=== PATIENT | female | born 1970 | race Caucasian/White ===

== ENCOUNTER 2020-01-19 15:04 | Emergency (ER) | payer OTHER, SELFPAY ==
[2020-01-19 15:20] VITALS: BP 134/64; PULSE 77; RESP 18; TEMP 36.8; O2SAT 98
--- NOTE | 2020-01-19 16:09 | ED.EAR ---
HPI - Ear Problem General Chief complaint: Ear Stated complaint: ear pain/pressure/drainage Time Seen by Provider: 01/19/20 16:15 Source: patient and RN notes reviewed Mode of arrival: ambulatory Limitations: no limitations History of Present Illness HPI Narrative: 49 year old female who presents to [facility] care with complaints of bilateral ear pain for the past 3-4 days. Patient states that she has had an intermittent fever with temperature highest of 101F yesterday. She states that her right ear is more painful than left and has decrease in hearing from her right ear. Patient states that she has had previous ear infections and chronic sinus problems with history of asthma and COPD. She states that she takes daily Zyrtec, Flonase and Singulair and has been taking Ibuprofen for her pain. Patient denies any sore throat, nasal congestion, acute cough or and acute shortness of breath, patient continues to use tobacco daily. MD Complaint: ear pain and ear discharge Location: right ear Duration: constant Severity: moderate Relieving factors: NDAIDs Discharge from ear: Reports yes - purulent Associated symptoms ear: decreased hearing and rhinorrhea (chronic sinus problems) Treatment prior to arrival: oral analgesic and other (Zyrtec, Flonase and Singulair) Related Data Home Medications Medication Instructions Recorded Confirmed albuterol sulfate 2 puff INHALATION Q4H PRN 01/19/20 01/19/20 cetirizine 10 mg PO DAILY 01/19/20 01/19/20 ergocalciferol (vitamin D2) 1,250 mcg PO WEEKLY 01/19/20 01/19/20 fluticasone propion-salmeterol 1 inh INHALATION BID 01/19/20 01/19/20 [Wixela Inhub] fluticasone propionate 1 spray INTRANASAL DAILY 01/19/20 01/19/20 glipizide 10 mg PO DAILY 01/19/20 01/19/20 hydrochlorothiazide 25 mg PO DAILY 01/19/20 01/19/20 insulin glargine [Basaglar KwikPen 20 unit SUBCUT DAILY 01/19/20 01/19/20 U-100 Insulin] ipratropium-albuterol 3 ml INHALATION QID PRN 01/19/20 01/19/20 lisinopril 10 mg PO DAILY 01/19/20 01/19/20 montelukast 10 mg PO DAILY 01/19/20 01/19/20 warfarin 10 mg PO DAILY 01/19/20 01/19/20 Allergies Allergy/AdvReac Type Severity Reaction Status Date / Time No Known Allergies Allergy Verified 01/19/20 15:16 Review of Systems Review of Systems: Narrative: CONSTITUTIONAL: Denies fever, chills, or sweats. EYES: Denies visual changes, redness, or discharge. ENT: Clear rhinorrhea, no congestion, sore throat, bilateral ear otalgia with drainage. CARDIOVASCULAR: Denies chest pain, palpitations, or edema. RESPIRATORY: Denies acute cough or dyspnea. GASTROINTESTINAL: Denies abdominal pain, nausea, vomiting, or diarrhea. GENITOURINARY: Denies dysuria or hematuria. SKIN: Denies rash or itching. MUSCULOSKELETAL: Denies back pain, joint pain, or myalgia. NEUROLOGIC: Denies headache, numbness, or weakness. PSYCHIATRIC: Denies anxiety or depression. All systems reviewed & are unremarkable except as noted in HPI and below PMFSH Past Medical History Medical History Asthma COPD (chronic obstructive pulmonary disease) Diabetes DVT (deep venous thrombosis) History of sinus problem Hyperlipidemia Hypertension IBS (irritable bowel syndrome) Surgical History Surgical History (Updated 01/19/20 @ 16:11 by Debbi Warren NP) Hx of cholecystectomy Previous section Social History Social History (Updated 01/21/20 @ 13:13 by Debbi Warren NP) Smoking packs per day: 0.5 Smoking cigarettes per day: 10.0 Years smoked: 26 Smoking pack-years: 13.00 Smoking status: Current every day smoker Tobacco type: cigarettes Living arrangements: with family Gender identity (if verbalized by the patient): Female Comments At time of signature, agree with nursing past medical, surgical, social history. There is no relevant family history pertinent to the presenting complaint Exam Narrative: Exam Narrative: GENERAL: Well-appearing, w
== END 2020-01-19 16:30 | disposition home or self-care (01) ==
PROVIDERS: Emergency Provider Registered Nurse; PCP Nurse Practitioner Family
DX: H66.002 Acute suppurative otitis media without spontaneous rupture of ear drum, left ear (principal); F17.210 Nicotine dependence, cigarettes, uncomplicated; J44.9 Chronic obstructive pulmonary disease, unspecified; E11.9 Type 2 diabetes mellitus without complications; Z86.718 Personal history of other venous thrombosis and embolism; E78.5 Hyperlipidemia, unspecified; I10 Essential (primary) hypertension
CPT/HCPCS: 99213; G0463

== ENCOUNTER 2020-12-17 09:24 | Emergency (ER) | payer OTHER, SELFPAY ==
--- NOTE | 2020-12-17 09:26 | ED.FEMALEGU ---
HPI - Female Genitourinary General Chief complaint: Upper Respiratory Infection Stated complaint: cough and painful urination Time Seen by Provider: 12/17/20 09:26 Source: patient and RN notes reviewed History of Present Illness HPI Narrative: Patient is a 50-year-old female who presents the urgent care with complaints of painful urination for the last 4 days with intermittent nausea. Patient also says that she has had urinary frequency. Reports of history of urinary tract infections with the last one being approximately 1 month ago. Patient was on Keflex at that time. Patient has not followed up with her doctor. Denies of any fever or vomiting. Denies of abdominal pain. States that she is taken Tylenol for her symptoms. No other acute complaints. No acute distress noted. Patient aware of the plan of care. Some parts of this dictation were generated by voice recognition software and may contain typographical and/or grammatical inaccuracies. Related Data Home Medications Medication Instructions Recorded Confirmed albuterol sulfate 2 puff INHALATION Q4H PRN 01/19/20 01/19/20 cetirizine 10 mg PO DAILY 01/19/20 01/19/20 ergocalciferol (vitamin D2) 1,250 mcg PO WEEKLY 01/19/20 01/19/20 fluticasone propion-salmeterol 1 inh INHALATION BID 01/19/20 01/19/20 [Roseann Inhub] fluticasone propionate 1 spray INTRANASAL DAILY 01/19/20 01/19/20 glipizide 10 mg PO DAILY 01/19/20 01/19/20 hydrochlorothiazide 25 mg PO DAILY 01/19/20 01/19/20 insulin glargine [Basaglar KwikPen 20 unit SUBCUT DAILY 01/19/20 01/19/20 U-100 Insulin] ipratropium-albuterol 3 ml INHALATION QID PRN 01/19/20 01/19/20 lisinopril 10 mg PO DAILY 01/19/20 01/19/20 montelukast 10 mg PO DAILY 01/19/20 01/19/20 warfarin 10 mg PO DAILY 01/19/20 01/19/20 Allergies Allergy/AdvReac Type Severity Reaction Status Date / Time No Known Allergies Allergy Verified 01/19/20 15:16 Review of Systems Review of Systems: CONSTITUTIONAL: Denies fever, chills, or sweats. EYES: Denies visual changes, redness, or discharge. ENT: Denies rhinorrhea, congestion, sore throat, or otalgia. CARDIOVASCULAR: Denies chest pain, palpitations, or edema. RESPIRATORY: Reports of acute on chronic cough without dyspnea GASTROINTESTINAL: Denies abdominal pain, nausea, vomiting, or diarrhea. GENITOURINARY: Reports of urinary frequency, dysuria SKIN: Denies rash or itching. MUSCULOSKELETAL: Reports of low back pain NEUROLOGIC: Denies headache, numbness, or weakness. All other systems reviewed are negative, except as documented in HPI. [facility] Past Medical History Medical History (Updated 12/17/20 @ 09:53 by ELIOT Valenzuela) Asthma COPD (chronic obstructive pulmonary disease) Diabetes DVT (deep venous thrombosis) History of sinus problem Hyperlipidemia Hypertension IBS (irritable bowel syndrome) Surgical History Surgical History (Updated 01/19/20 @ 16:11 by Debbi Warren NP) Hx of cholecystectomy Previous section Social History Social History (Updated 01/21/20 @ 13:13 by Debbi Warren NP) Smoking packs per day: 0.5 Smoking cigarettes per day: 10.0 Years smoked: 26 Smoking pack-years: 13.00 Smoking status: Current every day smoker Tobacco type: cigarettes Gender identity (if verbalized by the patient): Female Comments At the time of my signature, I reviewed and agree with the nursing past medical, surgical, social, and family history. There is no relevant family history pertinent to the patient complaint. Exam Narrative: GENERAL: This is a well-nourished, well-developed patient, in no apparent distress. HEAD: normocephalic, atraumatic. EYES: PERRL. Sclera clear/white. Vision is grossly intact. EARS: External ears normal, auditory canals clear and without drainage, TMs normal without perforation. Hearing grossly intact. NOSE: External nose normal with no obvious nasal discharge, nares without redness, no rhinorrhea. THROAT: Mucous membra
[2020-12-17 09:35] VITALS: BP 142/65; PULSE 92; RESP 14; TEMP 36.9; O2SAT 94
== END 2020-12-17 10:15 | disposition home or self-care (01) ==
PROVIDERS: Emergency Provider Nurse Practitioner Family; PCP Nurse Practitioner Family
DX: N39.0 Urinary tract infection, site not specified (principal); J44.9 Chronic obstructive pulmonary disease, unspecified; E11.9 Type 2 diabetes mellitus without complications; I10 Essential (primary) hypertension; E78.5 Hyperlipidemia, unspecified; F17.210 Nicotine dependence, cigarettes, uncomplicated; Z79.01 Long term (current) use of anticoagulants; Z79.4 Long term (current) use of insulin; Z86.718 Personal history of other venous thrombosis and embolism
CPT/HCPCS: 81003; 87077; 87086; 87088; 87186; 99213; G0463

== ENCOUNTER 2021-10-21 13:37 | Emergency (ER) | payer OTHER, SELFPAY ==
[2021-10-21 13:47] VITALS: BP 144/61; PULSE 81; RESP 18; TEMP 37.3; O2SAT 95
[2021-10-21 13:49] VITALS: BP 144/61; PULSE 81; RESP 18; TEMP 37.3; O2SAT 95
--- NOTE | 2021-10-21 14:05 | ED.FEMALEGU ---
HPI - Female Genitourinary General Chief complaint: Urogenital-Female Stated complaint: uti Time Seen by Provider: 10/21/21 15:09 Source: patient and RN notes reviewed Mode of arrival: ambulatory Limitations: no limitations History of Present Illness HPI Narrative: 51-year-old female presents concern for urinary tract infection. Reports 5-day history of urgency, painful urination, suprapubic pressure, blood in her urine, incontinence. She also reports back pain. Reports she was taking Azo without relief. She reports history of urinary tract infections. She denies nausea, vomiting, fever. She does MD elicited complaint: UTI Related Data Home Medications Medication Instructions Recorded Confirmed albuterol sulfate 90 mcg/actuation 2 puff inhalation Q4H PRN sob 01/19/20 12/17/20 aerosol inhaler cetirizine 10 mg tablet 10 mg PO DAILY 01/19/20 10/21/21 ergocalciferol (vitamin D2) 1,250 1,250 mcg PO WEEKLY 01/19/20 10/21/21 mcg (50,000 unit) capsule glipizide 10 mg tablet 10 mg PO DAILY 01/19/20 10/21/21 hydrochlorothiazide 25 mg tablet 25 mg PO DAILY 01/19/20 10/21/21 insulin glargine 100 unit/mL (3 20 unit subcut DAILY 01/19/20 10/21/21 mL) subcutaneous pen (Basaglar KwikPen U-100 Insulin) ipratropium 0.5 mg-albuterol 3 mg 3 ml inhalation QID PRN sob 01/19/20 10/21/21 (2.5 mg base)/3 mL nebulization soln lisinopril 10 mg tablet 10 mg PO DAILY 01/19/20 10/21/21 montelukast 10 mg tablet 10 mg PO DAILY 01/19/20 10/21/21 warfarin 5 mg tablet 10 mg PO DAILY 01/19/20 10/21/21 atorvastatin 20 mg tablet 20 mg PO DAILY 12/17/20 10/21/21 Allergies Allergy/AdvReac Type Severity Reaction Status Date / Time No Known Allergies Allergy Verified 01/19/20 15:16 Review of Systems Review of Systems: CONSTITUTIONAL: Denies malaise, chills, sweats, or fever. CARDIOVASCULAR: Denies chest pain, palpitations, or edema. RESPIRATORY: Denies cough or dyspnea. GASTROINTESTINAL: Denies abdominal pain, nausea, vomiting, diarrhea GENITOURINARY: Reports dysuria, frequency, suprapubic pressure. Reports flank pain, hematuria. SKIN: Denies rash or itching. MUSCULOSKELETAL: Denies back pain reports. Denies myalgia. All systems reviewed & are unremarkable except as noted in HPI and below PMFSH Past Medical History Medical History (Updated 10/21/21 @ 15:13 by Genny Hedrick NP) Asthma COPD (chronic obstructive pulmonary disease) Diabetes DVT (deep venous thrombosis) History of sinus problem Hyperlipidemia Hypertension IBS (irritable bowel syndrome) Surgical History Surgical History (Updated 01/19/20 @ 16:11 by Debbi Warren NP) Hx of cholecystectomy Previous section Social History Social History (Updated 01/21/20 @ 13:13 by Debbi Warren NP) Smoking packs per day: 0.5 Smoking cigarettes per day: 10.0 Years smoked: 26 Smoking pack-years: 13.00 Smoking status: Current every day smoker Tobacco type: cigarettes Gender identity (if verbalized by the patient): Female Comments At time of signature, agree with nursing past medical, surgical, social and family history. There is no relevant family history pertinent to the presenting complaint Exam Narrative: GENERAL: Well-appearing, well-nourished, and in no acute distress. HEAD: Normocephalic. EYES: PERRLA, conjunctivae clear. NECK: Supple. No lymphadenopathy CHEST: Clear to auscultation. No respiratory distress. HEART: Regular rate and rhythm. ABDOMEN: Soft, suprapubic tenderness, otherwise nontender upon palpation, nondistended, normal active bowel sounds, no palpable or pulsatile masses, no guarding. Right CVA tenderness SKIN: Warm, dry, no rash. NEURO: Alert and oriented x3. PSYCH: Normal mood and affect Course Course Emergency Course: Patient is aware of diagnosis, understands and agrees to treatment plan. Anticipatory guidance given. Patient agrees to follow-up as directed and is aware of reasons to seek care at the
== END 2021-10-21 15:16 | disposition home or self-care (01) ==
PROVIDERS: Emergency Provider Nurse Practitioner; PCP Nurse Practitioner Family
DX: N39.0 Urinary tract infection, site not specified (principal); F17.210 Nicotine dependence, cigarettes, uncomplicated; J44.9 Chronic obstructive pulmonary disease, unspecified; E11.9 Type 2 diabetes mellitus without complications; E78.5 Hyperlipidemia, unspecified; I10 Essential (primary) hypertension; Z86.718 Personal history of other venous thrombosis and embolism
CPT/HCPCS: 81003; 87077; 87086; 87186; 99213; G0463

== ENCOUNTER 2024-12-07 14:07 | Emergency (ER) | payer OTHER, SELFPAY ==
--- OUTSIDE RECORDS SUMMARY | 2024-12-07 14:08 | XMS_ITS | Clinical Summary ---
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 Name Role Phone Adelaida Apple NP Primary Care Provider [phone] Allergies Active Allergy Reactions Criticality Noted Date Comments Metformin Diarrhea,Vomiting High 04/27/2020 Linagliptin Rash High 04/27/2020 [facility] 1 Active lisinopriL (PRINIVIL,ZEST RIL) 10 mg tablet Take 1 tablet (10 mg total) by mouth every morning Active montelukast (SINGULAIR) 10 mg tablet Take 1 tablet (10 mg total) by mouth nightly Active cetirizine (ZyrTEC) 10 mg tablet Take 1 tablet (10 mg total) by mouth daily Active albuterol HFA (PROVENTIL HFA,VENTOLIN HFA,PROAIR HFA) 90 mcg/actuation inhaler Inhale 2 puffs every 6 (six) hours as needed for wheezing Active albuterol 0.63 mg/3 mL nebulizer solution Take 3 mL (0.63 mg total) by nebulization every 6 (six) hours as needed for wheezing Active oxybutynin (DITROPAN) 5 mg tablet Take 1 tablet (5 mg total) by mouth daily 1 Active ergocalciferol (VITAMIN D) 50,000 unit capsule Take 1 capsule (50,000 Units total) by mouth once a week On 1 Active Frevvouch Ultra Blue Test Strip strip USE TO TEST BLOOD GLUCOSE TWICE DAILY 1 Active blood-glucose meter [facility] OneTouch Ultra2 Meter Active ipratropium-al buteroL (DUO-NEB) 0.5-2.5 mg/3 mL nebulizer solution Take 3 mL by nebulization every 6 (six) hours as needed Active Advair Diskus 250-50 mcg/dose diskus inhaler Inhale 1 puff 2 (two) times a day 2 Active hydroCHLOROthi azide (HYDRODIURIL) 25 mg tablet Take 1 tablet (25 mg total) by mouth daily 2 Active clopidogreL (PLAVIX) 75 mg tablet Take 1 tablet (75 mg total) by mouth daily 4 Active fluticasone propionate (FLONASE) 50 mcg/actuation nasal spray INSTILL 1 SPRAY INTO EACH NOSTRIL ONCE DAILY 4 Active atorvastatin (LIPITOR) 20 mg tablet TAKE 1 TABLET BY MOUTH EVERY DAY AT NIGHT 90 tablet 3 4 Active Jardiance 25 mg tabletIndicati ons:Type 2 diabetes mellitus with hyperglycemia, with long-term current use of insulin (HCC) TAKE 1 TABLET (25 MG TOTAL) BY MOUTH DAILY. 90 tablet 3 4 Active fluconazole (DIFLUCAN) 150 mg tablet 4 Active albuterol 2.5 mg /3 mL (0.083 %) nebulizer solution 4 Active cefdinir (OMNICEF) 300 mg capsule Take 1 capsule every 12 hours by oral route for 10 days. 5 Active crisaborole (Eucrisa) 2 % ointment APPLY A THIN LAYER TO THE AFFECTED AREA(S) BY TOPICAL ROUTE 2 TIMES PER DAY prn 5 Active tamsulosin (FLOMAX) 0.4 mg extended release capsule Take by mouth daily Active gabapentin (NEURONTIN) 300 mg capsuleIndicat ions:Diabetic Peripheral Neuropathy,Yunior ropathic Pain Take 1 capsule (300 mg total) by mouth nightly 90 capsule 4 5 Active tirzepatide (Mounjaro) 10 mg/0.5 mL pen injector injectionIndic ations:type 2 diabetes mellitus Inject 0.5 mL (10 mg total) under the skin every 7 days E11.9 6 mL 4 5 Active warfarin (COUMADIN) 10 mg tablet Take 1 tablet (10 mg total) by mouth daily with breakfast Discontin ued(Thera py completed ) triamcinolone (KENALOG) 0.1 % cream Apply 1 application topically 2 (two) times a day Left forearm 2 025 Discontin ued(Thera py completed ) warfarin (COUMADIN) 5 mg tablet Take 2 tablets (10 mg total) by mouth daily 4 025 Discontin ued(Thera py completed ) amoxicillin 500 mg capsule TAKE 1 CAPSULE BY MOUTH EVERY 8 HOURS FOR 10 DAYS 4 Discontin ued(Aakash nt Reported) tirzepatide (MOUNJARO) 2.5 mg/0.5 mL pen injector injectionIndic ations:type 2 diabetes mellitus Inject 0.5 mL (2.5 mg total) under the skin once a week For 4 weeks then increase mounjaro to 5mg weekly. E11.65 PA- approved 07/08. Confirmation number-[id number] 46 2 mL 5 025 Discontin ued(Thera py completed ) tirzepatide (Mounjaro) 5 mg/0.5 mL pen injector injectionIndic ations:type 2 diabetes mellitus Inject 0.5 mL (5 mg total) under the skin every 7 days After taking mounjaro 2.5mg weekly for 4 weeks. E11.65 PA- approved 07/08. Confirmation number-[id number] 46 2 mL 11 5 025 Discontin ued(Thera py completed ) tirzepatide (Mounjaro) 7.5 mg/0.5 mL pen injector injectionIndic ations:type 2 diabetes mellitus Inject 0.5 mL (7.5 mg total) under the skin every 7 days PA- approved 07/08/24. E11.65 Confirmation number-[id number] 46 2 mL 11 5 025 Discontin ued(Thera py completed ) Active Problems Problem Noted Date Diagnosed Date Class 3 severe obesity due t o excess calories with serious comorbidity and body mass index (BMI) of 40.0 to 44.9 in adult 10/04/2022 Assessment & Plan (02/21/2024 9:53 AM INTRAVENOUS THERAPY NURSE): This is a chronic condition which continues 5 lbs. Weight gain since last office visit Increase Trulicity Encouraged healthy eating which includes a low carb diet. Avoiding processed foods, sweets and fried foods. Encouraged 30 minutes of walking at least 5 days per week Discussed that exercise can be broken down into small sessions- for example 2- 15 minutes sessions or 3- 10 minutes sessions. Assessment & Plan (06/12/2023 2:33 PM INTRAVENOUS THERAPY NURSE): This is a chronic condition which continues She is lost 1 lb since her last office visit She is lost her father in his grieving Encouraged healthy eating and exercise Restart Trulicity 0.75 mg weekly Assessment & Plan (10/04/2022 9:12 AM CDT): This is a chronic condition which improving. 31 lb weight loss over the last year Continue Trulicity 1.5 mg weekly Encouraged weight loss, healthy eating and exercise Bladder mass 01/30/2022 Overview (01/30/2022): Added automatically from request for surgery [id number] Smoker 12/07/2021 Assessment & Plan (12/07/2021 2:18 PM CDT): This is a chronic condition which is ongoing Smokes 1/2 pack/day about 10 cigarettes She would like to quit someday not right now. She will consider cutting back. She wanted to try Chantix but the insurance would not cover it. Frequent UTI 12/07/2021 Assessment & Plan (12/07/2021 2:45 PM CDT): This is a chronic condition which is ongoing Requesting to see urology. Will refer to Dr. Call at [facility]. Hyperlipidemia associated with type 2 diabetes yamile espinoza 11/08/2020 Assessment & Plan (02/21/2024 9:53 AM INTRAVENOUS THERAPY NURSE): This is a chronic condition which is at goal. Goal is less than 140/90 Continue lisinopril, hydrochlorothiazide Encouraged to monitor weight and B/P at home. Assessment & Plan (06/12/2023 2:41 PM INTRAVENOUS THERAPY NURSE): is a chronic condition which is at goal of LDL less than 70 Continue atorvastatin Encouraged to eat healthy, include fresh fruits and vegetables daily and avoid eating fried foods more than once per week. Encouraged to take medications as prescribed. Assessment & Plan (10/04/2022 9:09 AM CDT): This is a chronic condition which is at goal of LDL less than 70 Continue atorvastatin Encouraged to eat healthy, include fresh fruits and vegetables daily and avoid eating fried foods more than once per week. Encouraged to take medications as prescribed. Assessment & Plan (06/27/2022 9:10 AM CDT): This is a chronic condition which at goal. Goal is less than 70. Personally reviewed lipid panel. Continue atorvastatin. Encouraged to eat healthy, include fresh fruits and vegetables daily and avoid eating fried foods more than once per week. Encouraged to take medications as prescribed. Encouraged weight loss. Assessment & Plan (03/21/2022 6:49 AM INTRAVENOUS THERAPY NURSE): This is a chronic condition which at goal. Goal is less than 70. Personally reviewed lipid panel. Continue atorvastatin. Encouraged to eat healthy, include fresh fruits and vegetables daily and avoid eating fried foods more than once per week. Encouraged to take medications as prescribed. Encouraged weight loss. Assessment & Plan (06/22/2021 2:34 PM INTRAVENOUS THERAPY NURSE): This is a chronic condition which at goal. Goal is less than 70. Personally reviewed lipid panel. LDL - 52- on atorvastatin. Encouraged to eat healthy, include fresh fruits and vegetables daily and avoid eating fried foods more than once per week. Encouraged to take medications as prescribed. Encouraged weight loss. Assessment & Plan (02/17/2021 1:12 PM CDT): This is a chronic condition which is close to goal. Goal is less than 70. Personally reviewed lipid panel. LDL - 77- on atorvastatin. Encouraged to eat healthy, include fresh fruits and vegetables daily and avoid eating fried foods more than once per week. Encouraged to take medications as prescribed. Encouraged weight loss. Assessment & Plan (01/07/2021 2:47 PM CDT): This is a chronic condition which is close to goal. Goal is less than 70. Personally reviewed lipid panel. LDL - 77- on atorvastatin. Encouraged to eat healthy, include fresh fruits and vegetables daily and avoid eating fried foods more than once per week. Encouraged to take medications as prescribed. Encouraged weight loss. Assessment & Plan (11/08/2020 5:04 PM CDT): This is a chronic condition which is close to goal. Goal is less than 70. Personally reviewed lipid panel. LDL - 77- on atorvastatin. Encouraged to eat healthy, include fresh fruits and vegetables daily and avoid eating fried foods more than once per week. Encouraged to take medications as prescribed. Encouraged weight loss. Bronchitis 12/23/2018 Deep vein thrombosis (DVT) 12/23/2018 Dystrophia unguium 12/23/2018 Heartburn 12/23/2018 Seasonal allergies 12/23/2018 COPD (chronic obstructive pulmonary disease) Type 2 diabetes mellitus wit h hyperglycemia, with long-term current use of insulin 08/29/2012 Overview (11/08/2020): 08/29/12- diagnosed with diabetes. Assessment & Plan (02/21/2024 9:53 AM INTRAVENOUS THERAPY NURSE): This is a chronic condition which is elevated, not at goal but greatly improved . Goal is less than 7%. Personally reviewed most recent A1c - Lab Results Component Value Date HGBA1C 7.3 02/21/2024 Personally reviewed POC blood sugar- at goal of 80-180 Lab Results Component Value Date POCGLU 157 02/21/2024 Medication- continue Jardiance 25 mg daily, increase Trulicity to 3 mg weekly, Monitor blood sugar daily Encouraged annual eye exam. dilated eye screening today in the office Monofilament foot exam completed. Protective senses intact eGFR- 110 Kidney function-normal Urine microalbumin/creatinine ratio - elevated, not at goal. Goal is <30 Continue lisinopril/hydrochlorothiazide Assessment & Plan (06/12/2023 2:40 PM INTRAVENOUS THERAPY NURSE): This is a chronic condition which is worsening, not at goal of less than 7%. Personally reviewed most recent A1c - Lab Results Component Value Date HGBA1C 8.6 06/12/2023 Personally reviewed POC blood sugar- not at goal 80-180 Lab Results Component Value Date POCGLU 232 06/12/2023 Medication- Continue Jardiance 25 mg daily. Restart Trulicity 0.75mg weekly. Monitor blood sugar 4 times a day. Encouraged annual eye exam. Personally reviewed CMP eGFR- 113 Kidney function- normal Urine microalbumin/creatinine ratio - not at goal <30 not treated with HIGINIO/ARB, treated with HCTZ B/P today- at goal of <140/90. continue hctz. Personally reviewed lipid panel. at Goal of less than 70. Continue atorvastatin. Assessment & Plan (10/04/2022 9:58 AM CDT): This is a chronic condition which at goal of less than 7%. Personally reviewed most recent A1c - Lab Results Component Value Date HGBA1C 6.8 10/04/2022 Personally reviewed POC blood sugar- not at goal 80-180 Lab Results Component Value Date POCGLU 212 10/04/2022 Medication- stop insulin. Continue Jardiance 25 mg daily and decrease Trulicity 1.5mg weekly. Monitor blood sugar daily Encouraged annual eye exam. Monofilament foot exam completed. protective senses intact loss of protective senses. Treated with Gabapentin/Lyrica Personally reviewed CMP eGFR- 122 Kidney function- normal Urine microalbumin/creatinine ratio - at goal <30 treated with lisinopril hydrochlorothiazide B/P today- at goal of <140/90. continue lisinopril, hydrochlorothiazide Personally reviewed lipid panel. Not at Goal of less than 70. Continue atorvastatin. Assessment & Plan (06/27/2022 9:11 AM CDT): This is a chronic condition which is inadequately controlled, not at goal of less than 7%. Personally reviewed most recent A1c - Lab Results Component Value Date HGBA1C 8.8 06/27/2022 Personally reviewed POC blood sugar- at goal 80-180 Lab Results Component Value Date POCGLU 186 06/27/2022 Medication- Continue Basaglar 54 units daily, continue Trulicity 1.5mg weekly and Jardiance 25 mg daily. Decrease Trulicity to 1.5 due to unavailability/national shortage of the 3 mg dose. Monitor blood sugar 2times a day. Encouraged annual eye exam. Monofilament foot exam completed, protective senses intact amb referral to Dr. Nichols for diabetes foot care/ suspected plantar fascitis. She reports increase pain to her feet. Pain is burning. She has tried soaking and icing her feet. She takes tylenol. She reports the pain is so bad when she wakes up, she crawls to the bathroom. Today's visit is to review labs and discuss future plan. Urine microalbumin/creatinine ratio - not at goal <30 treated with lisinopril/HCTz Has bladder tumor being followed by urology Personally reviewed CMP GFR- 122 Kidney function- normal B/P today- at goal of <140/90. continue lisinopril/Hctz Personally reviewed lipid panel. at Goal of less than 70. Continue atorvastatin Assessment & Plan (03/21/2022 6:44 AM INTRAVENOUS THERAPY NURSE): This is a chronic condition which is inadequately controlled, not at goal of less than 7%. Personally reviewed most recent A1c - Lab Results Component Value Date HGBA1C 8.2 (H) 02/09/2022 Personally reviewed POC blood sugar- Lab Results Component Value Date POCGLU 227 03/20/2022 not at goal 80-180 Medication- Continue Basaglar 54 units daily, stop Glipizide 10mg daily, continue Trulicity 3mg weekly. Re-Start Jardiance 25 mg daily. Monitor blood sugar 2times a day. Encouraged annual eye exam. Urine microalbumin/creatinine ratio - not at goal <30 treated with lisinopril/HCTz Has bladder tumor being followed by urology Personally reviewed CMP GFR- 122 Kidney function- normal B/P today- not at goal of <140/90. continue lisinopril/Hctz Personally reviewed lipid panel. at Goal of less than 70. Continue atorvastatin Assessment & Plan (12/07/2021 2:44 PM CDT): This is a chronic condition which is not at goal. Personally reviewed A1c -decreased to 8% Not at goal less than 7% Personally reviewed blood sugar-173 at goal 80-180 Medication- Continue Basaglar 54 units daily, Glipizide 10mg daily, increase Trulicity 3mg weekly.- reports decreased appetite with trulicity. Encouraged to notify office if having nausea, vomiting or abd. pain Monitor blood sugar 3x times a day. Discussed adding jardiance but has frequent UTI's and a recent episode with kidney stone. She is requesting to see a urologist and is willing to go to [facility]. Encouraged annual eye exam. dilated eye exam is needed Monofilament foot exam completed, protective senses intact, Urine microalbumin/creatinine ratio -<30. currently HCTZ and lisinopril. at goal <30 Personally reviewed labs: BUN- 13, creatinine- 0.52 GFR- 113 Kidney function- normal B/P today- 148/74, currently on lisinopril/HCTZ, at Goal blood pressure is <140/90 and as close to 120/80 as possible. LDL -77 on atorvastatin. At goal of less than 70 No history of macrovascular disease - [place]. Agreed to attend Diabetes class, has not attended Assessment & Plan (08/03/2021 3:21 PM CDT): This is a chronic condition which is not at goal. Personally reviewed A1c -increased to 9.1% Not at goal less than 7% Personally reviewed blood sugar-247, not at goal 80-180 Medication- Continue Basaglar 54 units daily, Glipizide 10mg daily, increase Trulicity 3mg weekly.- reports decreased appetite with trulicity. Encouraged to notify office if having nausea, vomiting or abd. pain Monitor blood sugar 3x times a day. Encouraged annual eye exam. dilated eye exam is needed Monofilament foot exam completed, protective senses intact, Urine microalbumin/creatinine ratio -<30. currently HCTZ and lisinopril. at goal <30 Personally reviewed labs: BUN- 13, creatinine- 0.52 GFR- 113 Kidney function- normal B/P today- 1120/50, currently on lisinopril/HCTZ, at Goal blood pressure is <140/90 and as close to 120/80 as possible. LDL -77 on atorvastatin. At goal of less than 70 No history of macrovascular disease - [place]. Agreed to attend Diabetes class, has not attended Assessment & Plan (06/22/2021 2:34 PM INTRAVENOUS THERAPY NURSE): This is a chronic condition which is not at goal. Personally reviewed A1c -increased to 9.1% Not at goal less than 7% Personally reviewed blood sugar-168, At goal 80-180 Medication- Continue Basaglar 54 units daily, Glipizide 10mg daily, Vicotoza 1.8mg daily-stopped. Start Trulicity 1.5mg weekly. Notify office if having nausea, vomiting or abd. pain Monitor blood sugar 1-2x times a day. Encouraged annual eye exam. dilated eye exam is needed Monofilament foot exam completed, protective senses intact, Urine microalbumin/creatinine ratio -<30. currently HCTZ and lisinopril. at goal <30 Personally reviewed labs: BUN- 16, creatinine- 0.68 GFR- 104 Kidney function- normal B/P today- 142/72 , currently on lisinopril/HCTZ, at Goal blood pressure is <140/90 and as close to 120/80 as possible. LDL - 52 on atorvastatin. At goal of less than 70 No history of macrovascular disease - [place]. Agreed to attend Diabetes class, has not attended Assessment & Plan (02/17/2021 1:11 PM CDT): This is a chronic condition which is not at goal. Personally reviewed A1c -decreased to 8.7% Not at goal less than 7% Personally reviewed blood sugar 228, At goal 80-180 Medication- increase Lantus 54 units daily, continue glipizide 10mg daily, continue Victoza 1.8 mg daily . Notify office if having nausea, vomiting or abd. pain Monitor blood sugar 1-2x times a day. Encouraged annual eye exam. dilated eye exam is needed Monofilament foot exam completed, protective senses intact, Urine microalbumin/creatinine ratio -<30. currently HCTZ and lisinopril. at goal <30 Personally reviewed labs: BUN- 16, creatinine- 0.68 GFR- 104 Kidney function- normal B/P today- 118/64 , currently on lisinopril/HCTZ, at Goal blood pressure is <140/90 and as close to 120/80 as possible. LDL - 77- on atorvastatin. Close to goal of less than 70 No history of macrovascular disease - [place]. Agreed to attend Diabetes class, has not attended Assessment & Plan (01/07/2021 2:46 PM CDT): This is a chronic condition which is improving but not at goal. Personally reviewed A1c -decreased to 8.9% Not at goal less than 7% Personally reviewed blood sugar 181, At goal 80-180 Medication- Continue Lantus 50 units daily, continue glipizide 10mg daily, continue Victoza 1.8 mg daily . Notify office if having nausea, vomiting or abd. pain Monitor blood sugar 1-2x times a day. Encouraged annual eye exam. dilated eye exam is needed Monofilament foot exam completed, protective senses intact, Urine microalbumin/creatinine ratio -124 currently HCTZ and lisinopril. Not at goal <30 Personally reviewed labs: BUN- 16, creatinine- 0.68 GFR- 104 Kidney function- normal B/P today- 138/80 , currently on lisinopril/HCTZ, at Goal blood pressure is <140/90 and as close to 120/80 as possible. LDL - 77- on atorvastatin. Close to goal of less than 70 No history of macrovascular disease - [place]. Agreed to attend Diabetes class, has not attended Assessment & Plan (11/08/2020 5:05 PM CDT): This is a chronic condition which is uncontrolled with hyperglycemia, not at goal. Personally reviewed A1c -9.5 Not at goal less than 7% Personally reviewed blood sugar 178 At goal 80-180 Medication- Continue Lantus 50 units daily, continue glipizide 10mg daily, increase Victoza 1.8 mg daily . Notify office if having nausea, vomiting or abd. pain Monitor blood sugar 1-2x times a day. Encouraged annual eye exam. dilated eye exam is needed Monofilament foot exam completed, protective senses intact, Urine microalbumin/creatinine ratio -124 currently HCTZ and lisinopril. Not at goal <30 Personally reviewed labs: BUN- 16 , creatinine- 0.68 GFR- 104 Kidney function- normal B/P today- 140/80 , currently on lisinopril/HCTZ, at Goal blood pressure is <140/90 and as close to 120/80 as possible. LDL - 77- on atorvastatin. Close to goal of less than 70 No history of macrovascular disease - [place]. Agreed to attend Diabetes class Encouraged to stop smoking Assessment & Plan (04/27/2020 2:23 PM INTRAVENOUS THERAPY NURSE): This is a chronic condition which is uncontrolled with hyperglycemia, not at goal. Personally reviewed A1c -9.6 goal less than 7% Personally reviewed blood sugar 290 goal 80-180 Medication- Continue Lantus 50 units daily, continue glipizide 10mg daily, start Victoza 0.6mg daily for 2 weeks and then increase to 1.2mg daily if not having nausea or abd. pain Monitor blood sugar 1-2x times a day. Encouraged annual eye exam. dilated eye exam is needed Monofilament foot exam completed, protective senses intact, Urine microalbumin/creatinine ratio -124 currently HCTZ and lisinopril. Not at goal <30 Personally reviewed labs: BUN- 16 , creatinine- 0.68 GFR- 104 Kidney function- normal B/P today- 118/70 , currently on lisinopril, at Goal blood pressure is <140/90 and as close to 120/80 as possible. LDL - not completed, not on a statin, Lipid panel ordered. Goal of less than 70 No history of macrovascular disease - [place]. Declined visit to dietitian. Encouraged to stop smoking Hypertension, essential 08/31/2011 Overview (04/27/2020): Stable. Assessment & Plan (06/12/2023 2:33 PM INTRAVENOUS THERAPY NURSE): This is a chronic condition which is at goal of less than 140/90 Personally reviewed labs. Continue hctz Encouraged to monitor weight and B/P at home Encouraged to take medications as prescribed. Assessment & Plan (03/21/2022 6:46 AM INTRAVENOUS THERAPY NURSE): This is a chronic condition which is not at goal Goal is <140/90 Personally reviewed labs. continue lisinopril/HCTZ. Avoid caffeine, caffeine will raise blood pressure and excessive alcohol consumption. Monitor your weight and B/P. Encouraged to take medications as prescribed. Assessment & Plan (12/07/2021 2:44 PM CDT): This is a chronic condition which is at goal Goal is <140/90 Personally reviewed labs. B/P today- 148/74, currently on lisinopril/HCTZ. Avoid caffeine, caffeine will raise blood pressure and excessive alcohol consumption. Monitor your weight and B/P. Encouraged to take medications as prescribed. Assessment & Plan (08/03/2021 3:22 PM CDT): This is a chronic condition which is at goal Goal is <140/90 Personally reviewed labs. B/P today- 120/50, currently on lisinopril/HCTZ. Avoid caffeine, caffeine will raise blood pressure and excessive alcohol consumption. Monitor your weight and B/P. Encouraged to take medications as prescribed. Assessment & Plan (02/17/2021 1:12 PM CDT): This is a chronic condition which is at goal Goal is <140/90 Personally reviewed labs. B/P today- 118/64 , currently on lisinopril/HCTZ. Avoid caffeine, caffeine will raise blood pressure and excessive alcohol consumption. Monitor your weight and B/P. Encouraged to take medications as prescribed. Assessment & Plan (01/07/2021 2:47 PM CDT): This is a chronic condition which is at goal Goal is <140/90 Personally reviewed labs. B/P today- 138/80 , currently on lisinopril/HCTZ. Avoid caffeine, caffeine will raise blood pressure and excessive alcohol consumption. Monitor your weight and B/P. Encouraged to take medications as prescribed. Assessment & Plan (11/08/2020 5:06 PM CDT): This is a chronic condition which is at goal Goal is <140/90 Personally reviewed labs. B/P today- 140/80 , currently on lisinopril/HCTZ. Avoid caffeine, caffeine will raise blood pressure and excessive alcohol consumption. Monitor your weight and B/P. Encouraged to take medications as prescribed. Assessment & Plan (04/27/2020 2:22 PM INTRAVENOUS THERAPY NURSE): This is a chronic condition and is stable, controlled at goal. Goal is <140/90 Personally reviewed labs. Avoid caffeine, caffeine will raise blood pressure and excessive alcohol consumption. Monitor your weight and B/P. Please take medications as prescribed. B/P today- 118/70 , currently on lisinopril, at Goal blood pressure is <140/90 and as close to 120/80 as possible. Asthma 08/31/2011 Overview (02/09/2022): 08/31/2011 Persistent. Last attack yesterday. Resolved Problems Problem Noted Date Diagnosed Date Resolved Date Enlarged skin mole 06/12/2023 Assessment & Plan (06/12/2023 2:37 PM INTRAVENOUS THERAPY NURSE): Enlarged skin more to the left upper cheek impedes peripheral vision She reports it has cracked in the middle It causes her pain when she touches it Morbid (severe) obesity due to excess calories 08/03/2021 10/04/2022 Assessment & Plan (03/21/2022 6:45 AM INTRAVENOUS THERAPY NURSE): This a chronic condition which is worsening 4 lbs weight gain since last office visit Encourage continued weight loss and exercise. Continue trulicity. Assessment & Plan (12/07/2021 2:47 PM CDT): This a chronic condition which is improving 10 lbs weight loss since last office visit Encourage continued weight loss and exercise. Continue trulicity. Body mass index (BMI) 50.0-59.9, adult 08/03/2021 12/07/2021 Encounters Date Type Department Care Team Description 11/20/2024 4:00 PM CDT Office Visit [facility] at [address] [address] Izzy Vargas, [employer] Type 2 diabetes mellitus with hyperglycemia, with long-term current use of insulin (HCC) (Primary Dx); Hyperlipidemia associated with type 2 diabetes mellitus (HCC); Hypertension, essential; Class 3 severe obesity due to excess calories with serious comorbidity and body mass index (BMI) of 40.0 to 44.9 in adult from Last 3 Months Immunizations Immunization Administration Dates Next Due Influenza, Quadrivalent, Spl it, Intramuscular 02/15/2021,03/25/2019,02/12/2018 Influenza, Quadrivalent, Spl it, Preservative Free, Intramuscular 04/06/2020 Pneumococcal Polysaccharide PPV23 03/05/2018 TD Preservative Free 10/02/2014 Surgical History Surgery Date Site/Laterality Comments CHOLECYSTECTOMY 04/16/1996 TUBAL LIGATION Medical History Medical History Date Comments Diabetes mellitus (HCC) Type 2 diabetes mellitus Hypertension Body mass index (BMI) 50.0-59.9, adult ([facility]) COPD (chronic obstructive pulmonary disease) Frequent UTI Hematuria Polycythemia Polycythemia Enlarged skin mole 06/12/2023 Family History Medical History Relation Name Comments Diabetes type II Brother Diabetes Father Glaucoma Father Dementia Maternal Grandfather Diabetes type II Mother Relation Name Status Comments Brother Alive Father Alive Maternal Grandfather Alive Mother Alive Social History Tobacco Use Types Packs/Day Years Used Date Smoking Tobacco: Every Day Cigarettes Smokeless Tobacco: Never Tobacco Cessation:Ready to Q uit: Not Asked; Counseling Given: Not Answered Comments:Counseled pt to contact PCP for assist with quitting, inst not to smoke for 24 hr prior to surgery. Alcohol Use Standard Drinks/Week Comments Never 0 (1 standard drink = 0.6 oz pur e alcohol) AUDIT-C Answer Date Recorded Q1: How often do you have a drink containing alc ohol? Never 11/05/2020 Average Number of Drinks Not on file 021 Frequency of Binge Drinking Not on file 10/15 Comments No Sex and Gender Information Value Date Recorded Sex Assigned at Not on file Legal Sex Female 3:28 PM CDT Gender Identity Not on file Sexual Orientation Not on file Obstetrics History Last Filed Vital Signs Vital Sign Reading Time Taken Comments Blood Pressure 124/64 11/20/2024 4:09 PM CDT Pulse 74 08/01/2022 3:07 PM CDT Temperature 36.6 C (97.8 F) 08/01/2022 3:07 PM CDT Respiratory Rate 20 08/01/2022 3:07 PM CDT Oxygen Saturation 92% 08/01/2022 3:07 PM CDT Inhaled Oxygen Concentration - - Weight 108.6 kg (239 lb 6.4 oz) 11/20/2024 4:09 PM CDT Height 162.6 cm (5' 4) 11/20/2024 4:09 PM CDT Body Mass Index 41.09 11/20/2024 4:09 PM CDT Plan of Treatment Health Maintenance Due Date Last Done Comments Breast Cancer Screening-Mammogram 1971 Cervical Cancer Screening 1971 Colon Cancer Screening-Colonoscopy 1971 Depression Screening 1971 Hepatitis C Screening 1971 Hepatitis B Screening 1989 Regular Well Visit/Exam 18-64 1989 DTaP/Tdap/Td Vaccine (1 - Tdap) 10/03/2014 5 Pneumococcal vaccine <65 (2 of 2 - PCV) 03/05/2019 03/05/2018 Zoster Vaccine (1 of 2) 2021 Covid-19 Vaccine (4 - 2023-2 5 season) 2023 11/24/2021, 06/02/2021, 05/12/2021 Influenza Vaccine (#1) 2024 , 02/15/2021, 04/06/2020, Additional history exists Foot Exam 02/20/2025 02/21/2024, 04/2 , 06/22/2021, Additional history exists Hemoglobin A1C 05/23/2025 11/20/2024, 05/0 10/2024, 02/21/2024, Additional history exists Albumin Creatinine Ratio, Urine 07/02/2025 07/02/2024, 06/19/2023, 11/03/2022 Lipid Panel 07/02/2025 07/02/2024, 03/0 08/2023, 11/03/2022, Additional history exists eGFR 07/02/2025 07/02/2024, 03/1 12/2024, 11/19/2023, Additional history exists Dilated Eye Exam 02/21/2026 02/22/2024, 02/24/2021 Procedures Procedure Name Priority Date/Time Associated Diagnosis Comments POCT HEMOGLOBIN A1C Routine 11/20/2024 4 :11 PM CDT Type 2 diabetes mellitus with hyperglycemia, with long-term current use of insulin (HCC) POCT GLUCOSE Routine 11/20/2024 4:10 PM CDT Type 2 diabetes mellitus with hyperglycemia, with long-term current use of insulin (HCC) EGFR Routine 07/02/2024 LIPID PANEL Routine 07/02/2024 ALBUMIN CREATININE RATIO, URINE Routine 07/02/2024 RETINAVUE SCANNER - OU - BOTH EYES Routine 02/22/2024 Type 2 diabetes mellitus with hyperglycemia, with long-term current use of insulin (HCC) from Last 3 Months or Most Recently Relevant to Health Maintenance Results * (ABNORMAL) POCT hemoglobin A1c (11/20/2024 4:11 PM CDT) Pathologist [facility] Hemoglobin A1C, POC 6.8(A) 4.0 - 5.6 % Blood 11/20/2024 4:11 PM CDT Izzy Vargas NP POINT OF CARE TEST ORDERABLES F inal Result * POCT glucose (11/20/2024 4:10 PM CDT) Pathologist [facility] Glucose Blood, POC 165 Normal Fasting 70 - 100, Random <200 mg/dL Blood 11/20/2024 4:10 PM CDT Izzy Vargas NP POINT OF CARE TEST ORDERABLES F inal Result * EGFR (07/02/2024) Pathologist [facility] SCRIBED eGFR in 111 EXTERNAL LAB SCRIBED eGFR in NonAfrican Malagasy 111 EXTERNAL LAB 07/02/2024 Historical Provider MD HEALTH MAINTENANCE Final Result Performing Organization Address City/[facility]/ZIP Co de Phone Number EXTERNAL LAB * Albumin Creatinine Ratio, Urine (07/02/2024) SCRIBED Creatinine, Urine 28.0 - - - EXTERNAL LAB SCRIBED Microalbumin 20.0 - - - EXTERNAL LAB SCRIBED Microalb/Creat Ratio 71 EXTERNAL LAB Urine 07/02/2024 Historical Provider MD LAB URINE ORDERABLES Carmel l Result Performing Organization Address [facility]/ZIP Co de Phone Number EXTERNAL LAB * (ABNORMAL) Lipid panel (07/02/2024) SCRIBED Cholesterol, Total 143 100 - 199 EXTERNAL LAB SCRIBED HDL 51 40 - 999 EXTERNAL LAB SCRIBED LDL 84 0 - 99 EXTERNAL LAB SCRIBED Triglycerides 150(A) 0 - 149 EXTERNAL LAB Blood 07/02/2024 Historical Provider MD LAB BLOOD ORDERABLES Carmel l Result Performing Organization Address [facility] Co de Phone Number EXTERNAL LAB * RetinaVue Scanner - OU - Both Eyes (02/22/2024) Anatomical Region Laterality Modality Head Fundus Photograp hy 02/22/2024 Izzy Vargas [employer] OPHTH PHOTOGRAPHY Final Result from Last 3 Months or Most Recently Relevant to Health Maintenance Insurance [facility] Care Teams Long Chain Quiller Tender Relationship Specialty Start Date End Date Adelaida Apple NP [address] [place] [id number] PCP - General 09/22/19
--- OUTSIDE RECORDS SUMMARY | 2024-12-07 14:08 | XMS_ITS | Clinical Summary ---
Author Organization [facility] Address [address] [place] [address] Phone Care Team Providers Care Client Advisor Name Role Phone Apple, Adelaidacristiano TAVARES CNP Primary Care Provider [phone] Allergies No known active allergies Medications lisinopril (PRINIVIL, ZESTRIL) 10 MG Tablet Take 10 mg by mouth daily. Active hydroCHLOROthia zide (MICROZIDE) 12.5 MG Capsule Take 12.5 mg by mouth daily. Active cetirizine (ZYRTEC ALLERGY) 10 MG Tablet Take 10 mg by mouth daily. Active SITagliptin (JANUVIA) 50 MG Tablet Take 50 mg by mouth daily. Active warfarin (COUMADIN) 5 MG Tablet Take 1 Tab by mouth daily. Take daily or as directed 30 Tab 9 Active enoxaparin (LOVENOX) 150 mg/mL Solution 0.9 mL by Subcutaneous route every 12 hours. 20 Syringe 9 Active albuterol 108 (90 Base) MCG/ACT Aerosol Solution take 2 Puffs by inhalation every 6 hours as needed for Cough. 3.5 g 5 Active dexamethasone (Decadron) 4 MG Tablet Take 1 Tablet by mouth 2 times daily. 10 Tablet 5 Active Active Problems Problem Noted Date Diagnosed Date Type 2 diabetes mellitus, wi thout long-term current use of insulin 11/12/2018 HTN (hypertension) 11/12/2018 COPD (chronic obstructive pulmonary disease) Asthma 11/12/2018 Acute deep vein thrombosis (DVT) of left lower e xtremity 11/11/2018 Family History Medical History Relation Name Comments Diabetes Father No Known Problems Mother Relation Name Status Comments Father Alive Mother Alive Social History Tobacco Use Types Packs/Day Years Used Date Smoking Tobacco: Every Day Cigarettes Smokeless Tobacco: Never Alcohol Use Standard Drinks/Week Comments No 0 (1 standard drink = 0.6 oz pur e alcohol) Comments No Sex and Gender Information Value Date Recorded Sex Assigned at Not on file Legal Sex Female 12:12 AM CDT Gender Identity Not on file Sexual Orientation Not on file Last Filed Vital Signs Vital Sign Reading Time Taken Comments Blood Pressure 110/89 07/09/2024 12:15 PM CDT Pulse 65 07/09/2024 12:15 PM CDT Temperature 37.2 C (99 F) 07/09/2024 10:59 AM CDT Respiratory Rate 18 07/09/2024 12:15 PM CDT Oxygen Saturation 95% 07/09/2024 12:15 PM CDT Inhaled Oxygen Concentration - - Weight 99.8 kg (220 lb) 07/09/2024 10:59 AM CDT Height 157.5 cm (5' 2) 07/09/2024 10:59 AM CDT Body Mass Index 40.24 07/09/2024 10:59 AM CDT Plan of Treatment Health Maintenance Due Date Last Done Comments Diabetes: Eye Exam 1971 Diabetes: Foot Exam 1971 Hepatitis C Virus (HCV) Screening 1971 Mammogram 1971 TdaP Immunization 1971 Hepatitis B Immunization (1 of 3 - 19+ 3-dose series) 1990 Pap Smear 1992 Cervical Cancer Screening (CCS) 2001 HPV/Cotest 2001 Cologuard 2016 Colonoscopy 2016 Colorectal Cancer Screening 2016 Immunochemical Fecal Occult Blood 2016 Pneumococcal Immunization (50+ years) (2 of 2 - PCV) 03/05/2019 03/05/2018 Zoster Immunization (1 of 2) 2021 SARS-COV-2 Immunization ( season) 2023 11/24/2021, 06/02/2021, 05/12/2021 Diabetes: Hemoglobin A1c 08/20/2024 024, 06/12/2023, 06/27/2022, Additional history exists Influenza Immunization (#1) 2024 11/0 05/2020, 04/06/2020, 03/25/2019, Additional history exists Diabetes: Nephropathy Screening 07/09/2025 07/09/2024, 11/19/2023, 08/11/2022, Additional history exists Respiratory Syncytial Virus (RSV) Immunization (Adult) (1 - 1-dose 75+ series) 2046 DTaP/Tdap/Td Immunization Discontinued 10/02/2014 Pneumococcal Immunization Combined Discontinued 03/05/2018 Human Papillomavirus (HPV) Immunization Aged Out No longer eligible based on patient's age to complete this topic Meningococcal Immunization (ACWY) Aged Out No longer eligible based on patient's age to complete this topic Rotavirus Immunization Aged Out No lo nger eligible based on patient's age to complete this topic Procedures Procedure Name Priority Date/Time Associated Diagnosis Comments CMP (COMPREHENSIVE METABOLIC PANEL) STAT 07/09/2024 11:14 AM CDT from Last 3 Months or Most Recently Relevant to Health Maintenance Results * (ABNORMAL) CMP (Comprehensive Metabolic Panel) (07/09/2024 11:14 AM CDT) SODIUM 137 136 - 145 mmol/L 07/09/2024 11:45 AM CDT [facility] POTASSIUM 3.7 3.5 - 5.1 mmol/L 07/09/2024 11:45 AM CDT [facility] CHLORIDE 106 98 - 107 mmol/L 07/09/2024 11:45 AM CDT [facility] CO2, VENOUS 22 22 - 30 mmol/L 07/09/2024 11:45 AM CDT [facility] ANION GAP 12.7 <18.0 mmol/L 07/09/2024 11:45 AM CDT [facility] GLUCOSE 172(H) 70 - 99 mg/dL 07/09/2024 11:45 AM CDT [facility] BUN 20 10 - 20 mg/dL 07/09/2024 11:45 AM T [facility] CREATININE, BLOOD 0.67 0.60 - 1.00 mg/dL 07/09/2024 11:45 AM T [facility] BUN/CREATININE RATIO 30(H) 12 - 20 ratio 07/09/2024 11:45 AM CDT [facility] TOTAL PROTEIN 7.3 6.0 - 8.0 g/dL 07/09/2024 11:45 AM CDT [facility] ALBUMIN 4.1 3.5 - 5.0 g/dL 07/09/2024 11:45 AM T [facility] A/G RATIO 1.3 1.0 - 2.2 07/09/2024 11:45 AM T [facility] CALCIUM 9.0 8.7 - 10.5 mg/dL 07/09/2024 11:45 AM T [facility] T BILI 1.0 0.2 - 1.2 mg/dL 07/09/2024 11:45 AM [facility] SGOT (AST) 24 <43 U/L 07/09/2024 11:45 AM [facility] SGPT (ALT) 20 <56 U/L 07/09/2024 11:45 AM [facility] ALKALINE PHOSPHATASE 103 40 - 150 U/L 07/09/2024 11:45 AM T [facility] GFR, ESTIMATED >60 >=60 07/09/2024 11:45 AM [facility] Comment: Creatinine Clearance is the preferred criteria for selecting drug dose adjustments in renally impaired patients. The GFR is provided as additional pertinent clinical information. GFR is reported in mL/min/1.73 sq m. Calculation based on the Chronic Kidney Disease Epidemiology Collaboration (CKD- EPI) equation refit without adjustment for race. GFR, EST. >60 >=60 11:45 AM T [facility] GFR, EST. NONAFRICAN >60 >=60 07/09/2024 11:45 AM CDT [facility] Blood Venipuncture / Unknown 07/09/2024 11:14 AM CDT 07/09/2024 11:26 AM CDT us Enmanuel Dean Vj DO CHEMISTRY ORDERABLES Fi nal Result [facility] [address] [place] [address] from Last 3 Months or Most Recently Relevant to Health Maintenance Insurance MEDICAID [facility] Advance Directives * Full Code (Latest Code Status on File) Date Activated Date Inactivated Comments 11/11/2018 2:24 PM 11/12/2018 6:34 PM CPR-Full Sam atment: FULL ARREST: Attempt Resuscitation/CPR wit intubation and mechanical ventilation. PRE-ARREST: Use entire range of life support measures to stabilize the patient. Care Teams Client Advisor Relationship Specialty Start Date End Date Adelaida Apple APRN, SIMON [address] [place] [address] PCP - General Family Medicine 04/21/18
[2024-12-07 14:12] VITALS: BP 141/64; PULSE 68; RESP 20; TEMP 36.6; O2SAT 97
--- NOTE | 2024-12-07 14:13 | ED.EAR ---
HPI - Ear Problem General Chief complaint: Ear Stated complaint: Ear Pain Time Seen by Provider: 12/07/24 14:13 Source: patient and RN notes reviewed Mode of arrival: ambulatory Limitations: no limitations History of Present Illness HPI Narrative: 54-year-old female presents concern for bilateral ear pain for 2 days. She reports intermittent fever, body aches chills. Reports runny nose stuffy nose. She reports history of ear infections. She denies drainage from the ear. Denies hearing difficulties. MD Complaint: ear pain Related Data Home Medications ?Medication ?Instructions ?Recorded ?Confirmed ?Last Taken ?Type albuterol sulfate 90 mcg/actuation 2 puff inhalation Q4H PRN sob 01/19/20 12/17/20 Unknown History aerosol inhaler cetirizine 10 mg tablet 10 mg PO DAILY 01/19/20 10/21/21 Unknown History ergocalciferol (vitamin D2) 1,250 1,250 mcg PO WEEKLY 01/19/20 10/21/21 Unknown History mcg (50,000 unit) capsule hydrochlorothiazide 25 mg tablet 25 mg PO DAILY 01/19/20 10/21/21 Unknown History ipratropium 0.5 mg-albuterol 3 mg 3 ml inhalation QID PRN sob 01/19/20 10/21/21 Unknown History (2.5 mg base)/3 mL nebulization soln lisinopril 10 mg tablet 10 mg PO DAILY 01/19/20 10/21/21 Unknown History montelukast 10 mg tablet 10 mg PO DAILY 01/19/20 10/21/21 Unknown History atorvastatin 20 mg tablet 20 mg PO DAILY 12/17/20 10/21/21 Unknown History clopidogrel 75 mg tablet mg 12/07/24 Unknown History empagliflozin 25 mg tablet mg 12/07/24 Unknown History (Jardiance) gabapentin 300 mg capsule mg 12/07/24 Unknown History oxybutynin chloride 5 mg tablet mg 12/07/24 Unknown History tamsulosin 0.4 mg capsule mg PO 12/07/24 Unknown History tirzepatide 5 mg/0.5 mL mg subcut 12/07/24 Unknown History subcutaneous pen injector (Mounjaro) Allergies Allergy/AdvReac Type Severity Reaction Status Date / Time No Known Allergies Allergy Verified 12/07/24 14:16 Review of Systems Review of Systems: CONSTITUTIONAL: Reports malaise, chills, sweats, fever. EYES: Denies visual changes, redness, or discharge. ENT: Reports rhinorrhea, congestion. Denies sinus pain, and sore throat. Reports bilateral ear pain CARDIOVASCULAR: Denies chest pain, palpitations, or edema. RESPIRATORY: Denies cough. Denies dyspnea. GASTROINTESTINAL: Denies abdominal pain, nausea, vomiting, diarrhea SKIN: Denies rash or itching. MUSCULOSKELETAL: Denies myalgia. NEUROLOGIC: Denies headache. All systems reviewed & are unremarkable except as noted in HPI and below PMFSH Past Medical History Medical History (Updated 12/07/24 @ 14:20 by Genny Hedrick NP) IBS (irritable bowel syndrome) COPD (chronic obstructive pulmonary disease) Asthma DVT (deep venous thrombosis) Hyperlipidemia Hypertension History of sinus problem Diabetes Surgical History Surgical History (Updated 01/19/20 @ 16:11 by Debbi Warren NP) Previous section Hx of cholecystectomy Social History Social History (Updated 01/21/20 @ 13:13 by Debbi Warren NP) Smoking packs per day: 0.5 Smoking cigarettes per day: 10.0 Years smoked: 26 Smoking pack-years: 13.00 Smoking status: Current every day smoker Tobacco type: cigarettes Living arrangements: with family Gender identity (if verbalized by the patient): Female Comments At time of signature, agree with nursing past medical, surgical, social and family history. There is no relevant family history pertinent to the presenting complaint Exam Narrative: GENERAL: Well-appearing, well-nourished, and in no acute distress. HEAD: Normocephalic EYES: PERRLA, conjunctivae clear ENT: Nares clear. Mucous membranes moist. TM pearly erythematous with dull light reflex bilaterally; bilateral tragal tenderness, EAC erythematous and mildly edematous bilaterally. No post or pre-auricular erythema, induration, or warmth noted. Oropharynx not erythematous without lesions. Tonsils not enlarged and without exudate, no drooling, no hoarseness, no trismus, uvula midline. NECK: Supple. No lymphadenopathy CHEST: Clear to auscultation, breath sounds equal. No wheezing, rhonchi, rales, or stridor. No respiratory distress, speaks in full sentences. HEART: Regular rate and rhythm. No murmur heard. SKIN: Warm, dry, no rash. NEURO: Alert and oriented x3. PSYCH: Normal mood and affect Course Course Emergency Course: Patient is aware of diagnosis, understands and agrees to treatment plan. Anticipatory guidance given. Patient agrees to follow-up as directed and is aware of reasons to seek care at the emergency department. Portions of this record may have been created with voice recognition software Level of Care: [facility] [place] Visit Vital Signs Vital signs: Reviewed. Medical Decision Making MDM Narrative Medical decision making narrative: I evaluated this in the [facility] care. History is obtained from patient who is an independent historian and physical exam was performed.? Available medical records were reviewed. ? Exam findings and relevant testing show no acute concerns or changes; patient is non-toxic appearing and is in no distress. Differential diagnosis considered: Urban virus, strep pharyngitis, allergic rhinitis, upper respiratory tract infection, sinusitis, rhinosinusitis, nasopharyngitis. viral pharyngitis, otitis media, otitis externa, otitis effusion, pre/post auricular cellulitis, mastoiditis, cerumen impaction, foreign body. Exam findings show no acute concerns or changes; patient is non-toxic appearing and is in no distress. Patient is appropriate for outpatient treatment and follow-up. ? Differential diagnosis and treatment plan were discussed with the patient. Patient agrees with discussion and after shared medical decision making agrees with plan of care. All questions were answered to the patient's satisfaction. Patient is appropriate for outpatient treatment and follow-up. Critical Care Time Critical Care Time Critical Care Time: No Discharge Plan Discharge Clinical Impression: Otitis externa Otitis media Qualifiers: Otitis media type: suppurative Chronicity: acute Laterality: left Recurrence: non-recurrent Spontaneous tympanic membrane rupture: without spontaneous rupture Qualified Code(s): H66.002 - Acute suppurative otitis media without spontaneous rupture of ear drum, left ear Patient Disposition: Home Condition: Stable Instructions: Antibiotic Form, How to Use Ear Drops (ED) Additional Instructions: 1) Please follow-up with your primary care doctor in the next 1-2 days. 2) If you have any worsening of symptoms or any other urgent concerns please go to the ER. 3) Please take medications as prescribed and continue taking your home medications as usual. 4) Please read and follow information included in discharge instructions. Patient Language: [place] Prescriptions: New amoxicillin 875 mg tablet 875 mg PO Q12H 10 Days Qty: 20 0RF [id number] 3.5-10,000-1 mg/mL-unit/mL-% drops,suspension 4 drop EACH EAR Q8H 7 Days Qty: 10 0RF No Action ipratropium-albuterol 0.5 mg-3 mg(2.5 mg base)/3 mL solution for nebulization 3 ml INHALATION QID PRN (Reason: sob) cetirizine 10 mg tablet 10 mg PO DAILY lisinopril 10 mg tablet 10 mg PO DAILY montelukast 10 mg tablet 10 mg PO DAILY hydrochlorothiazide 25 mg tablet 25 mg PO DAILY ergocalciferol (vitamin D2) 1,250 mcg (50,000 unit) capsule 1,250 mcg PO WEEKLY albuterol sulfate 90 mcg/actuation HFA aerosol inhaler 2 puff INHALATION Q4H PRN (Reason: sob) atorvastatin 20 mg tablet 20 mg PO DAILY clopidogrel 75 mg tablet tamsulosin 0.4 mg capsule PO gabapentin 300 mg capsule oxybutynin chloride 5 mg tablet Jardiance 25 mg tablet Mounjaro 5 mg/0.5 mL pen injector SUBCUT Follow-up/Referrals: Apple,Adelaida Cast APN [Primary Care Provider, Unknown] Stand Alone Forms: Work/School Release IP Time of Disposition: 14:21
== END 2024-12-07 14:24 | disposition home or self-care (01) ==
PROVIDERS: Emergency Provider Nurse Practitioner; PCP Nurse Practitioner Family
DX: H60.93 Unspecified otitis externa, bilateral (principal); J44.9 Chronic obstructive pulmonary disease, unspecified; Z86.718 Personal history of other venous thrombosis and embolism; E78.5 Hyperlipidemia, unspecified; I10 Essential (primary) hypertension; E11.9 Type 2 diabetes mellitus without complications; Z79.85 Long-term (current) use of injectable non-insulin antidiabetic drugs; F17.210 Nicotine dependence, cigarettes, uncomplicated
CPT/HCPCS: 99213; G0463

== ENCOUNTER 2025-02-17 14:21 | Emergency (ER) | payer MEDICAID, SELFPAY ==
[2025-02-17 14:29] VITALS: BP 170/70; PULSE 78; RESP 20; TEMP 36.6; O2SAT 95
--- NOTE | 2025-02-17 15:08 | ED.URI ---
HPI - URI/Sore Throat General Chief Complaint: Upper Respiratory Infection Stated Complaint: URI symptoms / fever Time Seen by Provider: 02/17/25 15:00 Source: patient, RN notes reviewed and old records reviewed Mode of arrival: ambulatory Limitations: no limitations History of Present Illness HPI Narrative: 54-year-old female who presents to [facility] with complaints of sore throat, ear pain and some cough for 4 days. Patient reports that she has taken some Tylenol for her symptoms without any relief. Patient is on Plavix and is unable to take any nsaids.Patient reports that her throat is very sore describes as burning. Patient is on inhalers for asthma and COPD and has taken for her cough and takes daily Zyrtec. MD elicited complaint: cough, sore throat and other (ear pain) Pertinent past history: COPD and asthma Onset (ago): day(s) (4) Pain scale (0-10): 9 Able to tolerate fluids by mouth: Yes Exacerbating factors: swallowing Treatments prior to arrival: acetaminophen Related Data Home Medications ?Medication ?Instructions ?Recorded ?Confirmed ?Last Taken ?Type albuterol sulfate 90 mcg/actuation 2 puff inhalation Q4H PRN sob 01/19/20 12/17/20 Unknown History aerosol inhaler cetirizine 10 mg tablet 10 mg PO DAILY 01/19/20 10/21/21 Unknown History ergocalciferol (vitamin D2) 1,250 1,250 mcg PO WEEKLY 01/19/20 10/21/21 Unknown History mcg (50,000 unit) capsule hydrochlorothiazide 25 mg tablet 25 mg PO DAILY 01/19/20 10/21/21 Unknown History ipratropium 0.5 mg-albuterol 3 mg 3 ml inhalation QID PRN sob 01/19/20 10/21/21 Unknown History (2.5 mg base)/3 mL nebulization soln lisinopril 10 mg tablet 10 mg PO DAILY 01/19/20 10/21/21 Unknown History atorvastatin 20 mg tablet 20 mg PO DAILY 12/17/20 10/21/21 Unknown History clopidogrel 75 mg tablet mg 12/07/24 Unknown History empagliflozin 25 mg tablet mg 12/07/24 Unknown History (Jardiance) gabapentin 300 mg capsule mg 12/07/24 Unknown History tirzepatide 5 mg/0.5 mL mg subcut 12/07/24 Unknown History subcutaneous pen injector (Mounjaro) Allergies Allergy/AdvReac Type Severity Reaction Status Date / Time No Known Allergies Allergy Verified 02/17/25 14:34 Review of Systems Review of Systems: CONSTITUTIONAL: Reports malaise, no chills, sweats, or fever. EYES: Denies visual changes, redness, or discharge. ENT: Reports rhinorrhea, congestion, sinus pain,bilateral otalgia and positive for sore throat. CARDIOVASCULAR: Denies chest pain, palpitations, or edema. RESPIRATORY: Reports cough.? Denies acute dyspnea. GASTROINTESTINAL: Denies abdominal pain, nausea, vomiting, diarrhea SKIN: Denies rash or itching. MUSCULOSKELETAL: Denies myalgia. NEUROLOGIC: Denies headache. All systems reviewed & are unremarkable except as noted in HPI and below PMFSH Past Medical History Medical History (Updated 02/18/25 @ 15:28 by Debbi Warren APRN) IBS (irritable bowel syndrome) COPD (chronic obstructive pulmonary disease) Asthma DVT (deep venous thrombosis) Hyperlipidemia Hypertension History of sinus problem Diabetes Surgical History Surgical History (Updated 01/19/20 @ 16:11 by Debbi Warren APRN) Previous section Hx of cholecystectomy Social History Social History (Updated 01/21/20 @ 13:13 by Debbi Warren APRN) Smoking packs per day: 0.5 Smoking cigarettes per day: 10.0 Years smoked: 26 Smoking pack-years: 13.00 Smoking status: Current every day smoker Tobacco type: cigarettes Living arrangements: with family Gender identity (if verbalized by the patient): Female Comments At time of signature, agree with nursing past medical, surgical, social and family history. There is no relevant family history pertinent to the presenting complaint Exam Narrative: GENERAL: Well-appearing, well-nourished, and in no acute distress. HEAD: Normocephalic EYES: PERRLA, conjunctivae clear ENT: Nares clear, turbinates edematous and erythematous, clear discharge, sinus pressure reported. Mucous membranes moist.Left TM red and bulging, Right TM TM pearly tena with dull light reflex ; no tragal tenderness. Oropharynx erythematous without lesions. Tonsils not enlarged and without exudate, no drooling, no hoarseness, no trismus, uvula midline.post nasal drainage present NECK: Supple. No lymphadenopathy CHEST: Clear to auscultation, breath sounds equal. No wheezing, rhonchi, rales, or stridor. No respiratory distress, speaks in full sentences.dry cough noted SAO2 95% on room air no tachypnea noted HEART: Regular rate and rhythm. No murmur heard. SKIN: Warm, dry, no rash. NEURO: Alert and oriented x3. PSYCH: Normal mood and affect Course Course Emergency Course: Patient is aware of diagnosis, understands and agrees to treatment plan.? Anticipatory guidance given.? Patient agrees to follow-up as directed and is aware of reasons to seek care at the emergency department. Portions of this record may have been created with voice recognition software Level of Care: Express Care Visit Vital Signs Vital signs: Vital Signs Temperature 36.6 C 02/17/25 14:29 Pulse Rate 78 02/17/25 14:29 Respiratory Rate 20 02/17/25 14:29 Blood Pressure 170/70 H 02/17/25 14:29 Pulse Oximetry 95 02/17/25 14:29 Oxygen Delivery Room Air 02/17/25 14:29 Temperature 36.6 C 02/17/25 14:29 Pulse Rate 78 02/17/25 14:29 Respiratory Rate 20 02/17/25 14:29 Blood Pressure 170/70 H 02/17/25 14:29 Pulse Oximetry 95 02/17/25 14:29 Oxygen Delivery Room Air 02/17/25 14:29 Reviewed MDM - URI/Sore Throat MDM Narrative Medical decision making narrative: Differential diagnosis considered: Urban virus, strep pharyngitis, allergic rhinitis, upper respiratory tract infection, sinusitis, rhinosinusitis, nasopharyngitis. viral pharyngitis, otitis media, otitis externa, pneumonia, bronchitis, viral cough syndrome, viral syndrome, and influenza.? Exam findings show no acute concerns or changes; patient is non-toxic appearing and is in no distress.? Patient is appropriate for outpatient treatment and follow-up. Differential Diagnosis Differential diagnosis: Likely upper respiratory infection, otitis media (left), viral infection, pharyngitis and other (cough) Medical Records Attestation: I reviewed the patient's medical records. Lab Data Attestation: I reviewed the patient's lab results. Lab results narrative: strep screen negative, culture sent Labs: Lab Results 02/17/25 Range/Units 15:24 POC Grp A Strep Screen Negative (Negative) Critical Care Time Critical Care Time Critical Care Time: No Discharge Plan Discharge Clinical Impression: URI with cough and congestion, Otitis media, left Patient Disposition: Home Condition: Stable Instructions: Antibiotic Form, Ear Infection (GEN) Additional Instructions: Increase fluids especially juices and water Reer-[id number]-[id number] cough and cold medicine of your choice for your symptoms continue Zyrtec or Claritin daily Continue your inhaler/nebulizer as directed heat to the face 20-30 minutes 4-6 times a day for pain Salt water gargles, throat lozenges or throat sprays as desired Antibiotic as directed--finished the medication If your symptoms persist, change or worsen significantly before you can contact your personal physician then please, without delay, go to the emergency department for further evaluation. Follow-up with PCP in 7-10 days or sooner if needed Follow up with PCP soon in regards to your blood pressure which is elevated above threshold for referral. Blood pressure above 120/80 may indicate pre-hypertension.170/70 Patient Language: Turkish Prescriptions: New amoxicillin-pot clavulanate 875-125 mg tablet 1 tablet PO Q12H Qty: 20 0RF Rx Instructions: take with food recommend taking probiotic or eating activia yogurt while taking this medicine No Action ipratropium-albuterol 0.5 mg-3 mg(2.5 mg base)/3 mL solution for nebulization 3 ml INHALATION QID PRN (Reason: sob) cetirizine 10 mg tablet 10 mg PO DAILY lisinopril 10 mg tablet 10 mg PO DAILY hydrochlorothiazide 25 mg tablet 25 mg PO DAILY ergocalciferol (vitamin D2) 1,250 mcg (50,000 unit) capsule 1,250 mcg PO WEEKLY albuterol sulfate 90 mcg/actuation HFA aerosol inhaler 2 puff INHALATION Q4H PRN (Reason: sob) atorvastatin 20 mg tablet 20 mg PO DAILY clopidogrel 75 mg tablet gabapentin 300 mg capsule Jardiance 25 mg tablet Mounjaro 5 mg/0.5 mL pen injector SUBCUT Follow-up/Referrals: Apple,Adelaida Cast APN [Primary Care Provider, Unknown] Time of Disposition: 15:21 Quality [place] Coma Scale Eyes: Open Verbal: Oriented and Alert Motor: Follows Commands [place] Coma Total Score: 15
[2025-02-17 15:25] LABS: EDSTREPNEGPOS1 Negative (Negative)
--- OUTSIDE RECORDS SUMMARY | 2025-02-17 15:48 | XMS_ITS | Clinical Summary ---
Author Organization [facility] Address [address] [place] [address] Care Team Providers Care Senior Policy Associate Name Role Phone Adelaida Apple NP Primary Care Provider Allergies Active Allergy Reactions Criticality Noted Date Comments Metformin Diarrhea,Vomiting High 04/27/2020 Linagliptin Rash High 04/27/2020 [facility]ations [facility] 33 gauge [facility] 1 Active lisinopriL (PRINIVIL,ZESTR [place]) 10 mg tablet Take 1 tablet (10 [...] mouth once a week On 1 Active Amplify Healthuch Ultra Blue Test Strip strip USE TO TEST BLOOD GLUCOSE TWICE DAILY 1 Active blood-glucose meter [facility] OneTouch Ultra2 Meter Active ipratropium-alb uteroL (DUO-NEB) 0.5-2.5 mg/3 mL nebulizer solution Take 3 mL by nebulization every 6 (six) hours as needed Active Advair Diskus 250-50 mcg/dose diskus inhaler Inhale 1 puff 2 (two) times a day 2 Active hydroCHLOROthia zide (HYDRODIURIL) 25 mg tablet Take 1 tablet [...] AT NIGHT 90 tablet 3 4 Active fluconazole (DIFLUCAN) [...] mouth daily Active gabapentin (NEURONTIN) 300 mg capsuleIndicati ons:Diabetic Peripheral Neuropathy,Neur opathic Pain Take 1 capsule (300 mg total) by mouth nightly 90 capsule 4 5 Active tirzepatide (Mounjaro) 10 mg/0.5 mL pen injector injectionIndica tions:type 2 diabetes mellitus Inject 0.5 mL (10 mg total) under the skin every 7 days E11.9 6 mL 4 5 Active empagliflozin (Jardiance) 25 mg tabletIndicatio ns:Type 2 diabetes mellitus with hyperglycemia, with long-term current use of insulin (HCC) Take 1 tablet (25 mg total) by mouth daily 90 tablet 3 5 Active Active Problems Problem Noted Date Diagnosed Date Class 3 severe obesity due t o excess calories with serious comorbidity and body mass index (BMI) of 40.0 to 44.9 in adult 10/04/2022 Assessment & Plan (02/21/2024 9:53 AM BLANKBOOK FORWARDER): This is a chronic condition which continues [...] sessions. Assessment & Plan (06/12/2023 2:33 PM BLANKBOOK FORWARDER): This is a chronic condition which continues [...] (01/30/2022): Added automatically from request for surgery [id number] Smoker 12/07/2021 Assessment & Plan (12/07/2021 2:18 [...] urology. Will refer to Dr. Call at [facility]. Hyperlipidemia associated with type 2 diabetes yamile espinoza 11/08/2020 Assessment & Plan (02/21/2024 9:53 AM BLANKBOOK FORWARDER): This is a chronic condition which is at goal. Goal is less than 140/90 Continue lisinopril, hydrochlorothiazide Encouraged to monitor weight and B/P at home. Assessment & Plan (06/12/2023 2:41 PM BLANKBOOK FORWARDER): is a chronic condition which is at [...] loss. Assessment & Plan (03/21/2022 6:49 AM BLANKBOOK FORWARDER): This is a chronic condition which at goal. Goal is less than 70. Personally reviewed lipid panel. Continue atorvastatin. Encouraged to eat healthy, include fresh fruits and vegetables daily and avoid eating fried foods more than once per week. Encouraged to take medications as prescribed. Encouraged weight loss. Assessment & Plan (06/22/2021 2:34 PM BLANKBOOK FORWARDER): This is a chronic condition which at [...] diabetes. Assessment & Plan (02/21/2024 9:53 AM BLANKBOOK FORWARDER): This is a chronic condition which is [...] lisinopril/hydrochlorothiazide Assessment & Plan (06/12/2023 2:40 PM BLANKBOOK FORWARDER): This is a chronic condition which is [...] atorvastatin Assessment & Plan (03/21/2022 6:44 AM BLANKBOOK FORWARDER): This is a chronic condition which is [...] urologist and is willing to go to [facility]. Encouraged annual eye exam. dilated eye exam [...] No history of macrovascular disease - CVA, [place]. Agreed to attend Diabetes class, has not [...] No history of macrovascular disease - CVA, [place]. Agreed to attend Diabetes class, has not attended Assessment & Plan (06/22/2021 2:34 PM BLANKBOOK FORWARDER): This is a chronic condition which is [...] No history of macrovascular disease - CVA, [place]. Agreed to attend Diabetes class, has not [...] No history of macrovascular disease - CVA, [place]. Agreed to attend Diabetes class, has not [...] No history of macrovascular disease - CVA, [place]. Agreed to attend Diabetes class, has not [...] No history of macrovascular disease - CVA, [place]. Agreed to attend Diabetes class Encouraged to stop smoking Assessment & Plan (04/27/2020 2:23 PM BLANKBOOK FORWARDER): This is a chronic condition which is [...] No history of macrovascular disease - CVA, [place]. Declined visit to dietitian. Encouraged to stop smoking Hypertension, essential 08/31/2011 Overview (04/27/2020): Stable. Assessment & Plan (06/12/2023 2:33 PM BLANKBOOK FORWARDER): This is a chronic condition which is at goal of less than 140/90 Personally reviewed labs. Continue hctz Encouraged to monitor weight and B/P at home Encouraged to take medications as prescribed. Assessment & Plan (03/21/2022 6:46 AM BLANKBOOK FORWARDER): This is a chronic condition which is [...] prescribed. Assessment & Plan (04/27/2020 2:22 PM BLANKBOOK FORWARDER): This is a chronic condition and is [...] 06/12/2023 Assessment & Plan (06/12/2023 2:37 PM BLANKBOOK FORWARDER): Enlarged skin more to the left upper cheek impedes peripheral vision She reports it has cracked in the middle It causes her pain when she touches it Morbid (severe) obesity due to excess calories 08/03/2021 10/04/2022 Assessment & Plan (03/21/2022 6:45 AM BLANKBOOK FORWARDER): This a chronic condition which is worsening [...] Encounters Date Type Department Care Team Description 12/24/2024 Telephone [facility] Diabetes Endocrine Care at [address] [phone] Izzy Vargas NP 12/22/2024 Telephone [facility] Diabetes Endocrine Care at [place] [phone] Izzy Vargas NP 11/20/2024 4:00 PM CDT Office Visit [facility] Diabetes Endocrine Care at [place] [phone] Izzy Vargas, RICKIE Type 2 diabetes mellitus with hyperglycemia, with [...] History Medical History Date Comments Diabetes mellitus Type 2 diabetes mellitus Hypertension Body mass index (BMI) 50.0-59.9, adult ([facility]) COPD (chronic obstructive pulmonary disease) Frequent UTI [...] of 2) 2021 Covid-19 Vaccine (4 - 2024-2 6 season) 2024 11/24/2021, 06/02/2021, 05/12/2021 Influenza Vaccine (#1) 2024 4, 02/15/2021, 04/06/2020, Additional history exists Foot Exam 02/20/2025 02/21/2024, 04/2 , 06/22/2021, Additional history exists Hemoglobin A1C 05/23/2025 11/20/2024, 05/0 10/2024, 02/21/2024, Additional history exists Albumin Creatinine Ratio, Urine 07/02/2025 07/02/2024, 06/19/2023, 11/03/2022 Lipid Panel 07/02/2025 07/02/2024, 03/0 08/2023, 11/03/2022, Additional history exists eGFR 07/02/2025 07/02/2024, 1 12/2024, 11/19/2023, Additional history exists Dilated Eye Exam 02/21/2026 02/22/2024, 02/24/2021 Procedures Procedure Name Priority Date/Time Associated Diagnosis Comments POCT HEMOGLOBIN A1C Routine 11/20/2024 4 :11 PM CDT Type 2 diabetes mellitus with hyperglycemia, with long-term current use of insulin (HCC) POCT GLUCOSE Routine 11/20/2024 4:10 PM CDT Type 2 diabetes mellitus with hyperglycemia, with long-term current use of insulin ([facility]) EGFR Routine 07/02/2024 LIPID PANEL Routine 07/02/2024 ALBUMIN CREATININE RATIO, URINE Routine 07/02/2024 RETINAVUE SCANNER - OU - BOTH EYES Routine 02/22/2024 Type 2 diabetes mellitus with hyperglycemia, with long-term current use of insulin (HCC) from Last 3 Months or Most Recently Relevant to Health Maintenance Results * (ABNORMAL) POCT hemoglobin A1c (11/20/2024 4:11 PM CDT) Hemoglobin A1C, POC 6.8(A) 4.0 - 5.6 % Blood 11/20/2024 4:11 PM CDT us Izzy Vargas NP POINT OF CARE TEST ORDERABLES F inal Result * POCT glucose (11/20/2024 4:10 PM CDT) Glucose Blood, POC 165 Normal Fasting 70 - 100, Random <200 mg/dL Blood 11/20/2024 4:10 PM CDT Izzy Vargas SOCIOLOGY FACULTY MEMBER POINT OF CARE TEST ORDERABLES F inal Result * EGFR (07/02/2024) SCRIBED eGFR 111 EXTERNAL LAB SCRIBED eGFR 111 EXTERNAL LAB 07/02/2024 Historical Provider HEALTH MAINTENANCE Final Result EXTERNAL LAB * Albumin Creatinine Ratio, Urine (07/02/2024) SCRIBED Creatinine, Urine 28.0 - - - EXTERNAL LAB SCRIBED Microalbumin 20.0 - - - EXTERNAL LAB SCRIBED Microalb/Creat Ratio 71 EXTERNAL LAB Urine 07/02/2024 Historical Provider LAB URINE ORDERABLES [place] [facility] Result EXTERNAL LAB * (ABNORMAL) Lipid panel (07/02/2024) SCRIBED Cholesterol, Total 143 100 - 199 EXTERNAL LAB SCRIBED HDL 51 40 - 999 EXTERNAL LAB SCRIBED LDL 84 0 - 99 EXTERNAL LAB SCRIBED Triglycerides 150(A) 0 - 149 EXTERNAL LAB Blood 07/02/2024 Historical Provider LAB BLOOD ORDERABLES [place] [facility] Result EXTERNAL LAB * RetinaVue Scanner - OU - Both Eyes (02/22/2024) Anatomical Region Laterality Modality Head Fundus Photograp hy 02/22/2024 Izzy Vargas SOCIOLOGY FACULT[employer] MEMBER OPHTH PHOTOGRAPHY Final Result from Last 3 Months or Most Recently Relevant to Health Maintenance Insurance [facility] Care Teams Senior Policy Associate Relationship Specialty Start Date End Date Apple, Adelaida Rea NP [address] [place] [address] PCP - General 09/22/19
--- OUTSIDE RECORDS SUMMARY | 2025-02-17 15:48 | XMS_ITS | Clinical Summary ---
Author Organization [facility] Address [address] [place] [address] Phone Care Team Providers Care Crystal Inspector Name Role Phone Apple, Adelaidacristiano TAVARES CNP Primary Care Provider [phone] Allergies No known active allergies Medications lisinopril [...] 03/05/2018 Zoster Immunization (1 of 2) 2021 Diabetes: Hemoglobin A1c 08/20/2024 024, 06/12/2023, 06/27/2022, Additional history exists Influenza Immunization (#1) 2024 11/0 05/2020, 04/06/2020, 03/25/2019, Additional history exists SARS-COV-2 Immunization ( season) 2024 11/24/2021, 06/02/2021, 05/12/2021 Diabetes: Nephropathy Screening 07/09/2025 07/09/2024, 11/19/2023, 08/11/2022, [...] - 145 mmol/L 07/09/2024 11:45 AM CDT [facility] POTASSIUM 3.7 3.5 - 5.1 mmol/L 07/09/2024 11:45 AM CDT [facility] CHLORIDE 106 98 - 107 mmol/L 07/09/2024 11:45 AM CDT [facility] CO2, VENOUS 22 22 - 30 mmol/L 07/09/2024 11:45 AM CDT [facility] ANION GAP 12.7 <18.0 mmol/L 07/09/2024 11:45 AM CDT [facility] GLUCOSE 172(H) 70 - 99 mg/dL 07/09/2024 11:45 AM CDT [facility] BUN 20 10 - 20 mg/dL 07/09/2024 11:45 AM T [facility] CREATININE, BLOOD 0.67 0.60 - 1.00 mg/dL 07/09/2024 11:45 AM T [facility] BUN/CREATININE RATIO 30(H) 12 - 20 ratio 07/09/2024 11:45 AM CDT [facility] TOTAL PROTEIN 7.3 6.0 - 8.0 g/dL 07/09/2024 11:45 AM CDT [facility] ALBUMIN 4.1 3.5 - 5.0 g/dL 07/09/2024 11:45 AM T [facility] A/G RATIO 1.3 1.0 - 2.2 07/09/2024 11:45 AM T [facility] CALCIUM 9.0 8.7 - 10.5 mg/dL 07/09/2024 11:45 AM T [facility] T BILI 1.0 0.2 - 1.2 mg/dL 07/09/2024 11:45 AM [facility] SGOT (AST) 24 <43 U/L 07/09/2024 11:45 AM [facility] SGPT (ALT) 20 <56 U/L 07/09/2024 11:45 AM [facility] ALKALINE PHOSPHATASE 103 40 - 150 U/L 07/09/2024 11:45 AM T [facility] GFR, ESTIMATED >60 >=60 07/09/2024 11:45 AM [facility] Comment: Creatinine Clearance is the preferred criteria for selecting drug dose adjustments in renally impaired patients. The GFR is provided as additional pertinent clinical information. GFR is reported in mL/min/1.73 sq m. Calculation based on the Chronic Kidney Disease Epidemiology Collaboration (CKD- EPI) equation refit without adjustment for race. GFR, EST. >60 >=60 11:45 AM T [facility] GFR, EST. NONAFRICAN >60 >=60 07/09/2024 11:45 AM CDT [facility] Blood Venipuncture / Unknown 07/09/2024 11:14 AM CDT 07/09/2024 11:26 AM CDT us Enmanuel Dean Vj DO CHEMISTRY ORDERABLES Fi nal Result [facility] [address] [place] [address] from Last 3 Months or Most Recently Relevant to Health Maintenance Insurance MEDICAID [facility] PLAN Advance Directives * Full Code (Latest Code Status on File) Date Activated Date Inactivated Comments 11/11/2018 2:24 PM 11/12/2018 6:34 PM CPR-Full Sam atment: FULL ARREST: Attempt Resuscitation/CPR wit intubation and mechanical ventilation. PRE-ARREST: Use entire range of life support measures to stabilize the patient. Care Teams Crystal Inspector Relationship Specialty Start Date End Date Adelaida Apple APRN, SIMON PCP - General Family Medicine 04/21/18
--- OUTSIDE RECORDS SUMMARY | 2025-02-17 15:48 | XMS_ITS | Clinical Summary ---
Author Organization [facility] Address [address] [place] [address] Care Team Providers Care Art Display Maker Name Role Phone Unavailable Primary Care Provider Unavailabl e Source Comments [facility],non-owned Affiliates and Associated Physician Practices is amultiple site organization consisting of ambulatory clinics and hospital sitesin [place], [place], [place] and [place]. This disclosure is being madepursuant to the Care Everywhere program and may not contain all information available regarding this patient. Last updated 18.[facility] Allergies No known active allergies Medications * Be aware that medications may not be up to date on this document. Alwaysverify current medications with the patient. budesonide-formot fatuma (SYMBICORT) 160-4.5 MCG/ACT inhaler Inhale 2 Puffs by mouth 2 times daily. 1 Inhaler 3 3 Active albuterol (PROVENTIL;VENTOL IN) (2.5 MG/3ML) 0.083% nebulizer solution Inhale 2.5 mg by mouth 4 times daily as needed. 2 Box 3 3 Active lisinopril-hydroc hlorothiazide (PRINZIDE; ZESTORETIC) 10-12.5 MG tabletIndications :Hypertension Take 1 Tab by mouth once daily. 90 Tab 3 3 Active Blood Glucose Monitoring Suppl (CONTOUR BLOOD GLUCOSE SYSTEM) W/DEVICE KITIndications:Ty pe II or unspecified type diabetes mellitus without mention of complication, not stated as uncontrolled (HCC) Use 1 Device once daily. ICD-9 250.00 1 Kit 0 3 Active blood glucose (ASCENSIA CONTOUR TEST STRIP) test stripIndications: Type II or unspecified type diabetes mellitus without mention of complication, not stated as uncontrolled (HCC) Use 1 Strip once daily. ICD-9 250.00 50 Strip 6 3 Active Lancets (BD LANCET ULTRAFINE 30G) MISCIndications:T ype II or unspecified type diabetes mellitus without mention of complication, not stated as uncontrolled (HCC) Use 1 Stick once daily. ICD-9 250.00 100 Each 6 3 Active albuterol HFA (PROVENTIL;VENTOL IN;PROAIR) 108 (90 BASE) MCG/ACT inhalerIndication s:Asthma Inhale 2 Puffs by mouth every 6 hours as needed. 1 Inhaler 6 3 Active sitaGLIPtin (JANUVIA) 100 MG tablet Take 100 mg by mouth once daily. Active oseltamivir (TAMIFLU) 75 MG capsule Take 1 capsule by mouth 2 times daily 10 capsule 8 Active Active Problems Problem Noted Date Diagnosed Date Elevated glucose 08/29/2012 Diabetes mellitus type II, uncontrolled 08/30/19 13 Overview (08/29/2012): 08/29/12 Patient reports that she went to the ER last Sunday for difficulty swallowing. She reports over the last 5-6 weeks the patient reports feeling tired, weak, thirsty, and urinating a lot. Patient reports that she was not fasting last Sunday, when her blood sugar was recorded at 144. She is taking Metformin, which is causing diarrhea. HBA1C today is 6.8. Patient has FH of diabetes. Patient stated that she understands diabetes and will not need diabetic nurse counseling. Discussed options of management. Plan: Januvia samples for 6 weeks and follow up with PCP. Hypertension, essential 08/31/2011 Overview (08/31/2011): Stable. Asthma 08/31/2011 Overview (08/31/2011): 08/31/2011 Persistent. Last attack yesterday. Pap smear for cervical cancer screening 08/31/19 12 Overview (08/31/2011): Last 2010. Due 2013. History of mammogram 08/31/2011 Overview (08/31/2011): Due 2011. Otitis externa 08/31/2011 Overview (08/31/2011): 08/31/2011 Right ostitis externa and otitis media. Left otitis externa. Plan: Augmentin, Cortisporin Suspension. Otitis media 08/31/2011 Overview (08/31/2011): 08/31/2011 Right otitis media. Plan: Augmentin. Immunizations Immunization Administration Dates Next Due TD (ADULT), 5 LF TETANUS TOXOID, ADSORBED, PF Social History Tobacco Use Types Packs/Day Years Used Date Smoking Tobacco: Every Day Cigarettes 0.5 12 Smokeless Tobacco: Never Tobacco Cessation:Ready to Q uit: No; Counseling Given: No Alcohol Use Standard Drinks/Week Comments No 0 (1 standard drink = 0.6 oz pur e alcohol) Comments No Sex and Gender Information Value Date Recorded Sex Assigned at Not on file Legal Sex Female 6:29 AM SIGNAL MECHANIC Gender Identity Not on file Sexual Orientation Not on file Last Filed Vital Signs Vital Sign Reading Time Taken Comments Blood Pressure 135/76 05/08/2017 5:10 PM SIGNAL MECHANIC Pulse 101 05/08/2017 5:10 PM SIGNAL MECHANIC Temperature 38.2 C (100.8 F) 05/08/2017 5:10 PM SIGNAL MECHANIC Respiratory Rate 20 05/08/2017 5:10 PM SIGNAL MECHANIC Oxygen Saturation 90% 05/08/2017 5:10 PM SIGNAL MECHANIC Inhaled Oxygen Concentration - - Weight 99.8 kg (220 lb) 05/08/2017 5:10 PM SIGNAL MECHANIC Height 162.6 cm (5' 4) 05/08/2017 5:10 PM SIGNAL MECHANIC Body Mass Index 37.76 05/08/2017 5:10 PM SIGNAL MECHANIC Plan of Treatment Health Maintenance Due Date Last Done Comments COLOGUARD (AGES 45-75) - COL ON CA SCREENING 1971 COLON MONITORING 1971 COLONOSCOPY - COLON CA SCREENING 1971 CT COLONOGRAPHY - COLON CA SCREENING 1971 Colorectal Cancer Screening 1971 FIT - COLON CA SCREENING 1971 FLEX SIG - COLON CA SCREENING 1971 MAMMOGRAM 1971 HIV SCREENING 1986 HEPATITIS C SCREENING 05/17/1989 HEPATITIS B VACCINE (1 of 3 - 19+ 3-dose series) 1990 PNEUMOCOCCAL VACCINE 50+ (1 of 2 - PCV) 1990 DIABETES-STATIN 2011 DIABETES-FOOT EXAM WITH MONOFILAMENT 08/29/2012 DIABETES-HGB A1C 03/01/2013 08/29/2012 DIABETES-SERUM CREATININE 03/13/20172015, 05/27/2013, 08/29/2012 ZOSTER VACCINE (1 of 2) 2021 DEPRESSION SCREENING 04/16/2024 DIABETES - URINE PROTEIN SCREENING 04/16/2024 DTAP/TDAP/TD VACCINES (2 - T d or Tdap) 10/02/2024 10/02/2014 COVID-19 VACCINE (1 - 2023-2 5 season) 2024 INFLUENZA VACCINE (#1) 2024 HIB VACCINE Aged Out No longer eligi ble based on patient's age to complete this topic HPV VACCINE Aged Out No longer eligi ble based on patient's age to complete this topic MENINGOCOCCAL (Group B) VACCINE SHARED DECISION-MAKING Aged Out No longer eligible based on patient's age to complete this topic MENINGOCOCCAL GROUPS A/C/Y/W VACCINE Aged Out No longer eligible b ased on patient's age to complete this topic Procedures Procedure Name Priority Date/Time Associated Diagnosis Comments COMPREHENSIVE METABOLIC PANEL STAT 03/13/2016 7:47 PM SIGNAL MECHANIC HEMOGLOBIN A1C Routine 08/29/2012 12:44 PM CDT Elevated glucose from Last 3 Months or Most Recently Relevant to Health Maintenance Results * (ABNORMAL) COMPREHENSIVE METABOLIC PANEL (03/13/2016 7:47 PM SIGNAL MECHANIC) Glucose Fasting 108 70 - 110 mg/dL 03/13/2016 7:56 PM SIGNAL MECHANIC [facility] Sodium 140 136 - 145 mmol/L 03/13/2016 7:56 PM SIGNAL MECHANIC [facility] Potassium 4.1 3.5 - 5.1 mmol/L 03/13/2016 7:56 PM SIGNAL MECHANIC [facility] Chloride 104 98 - 107 mmol/L 03/13/2016 7:56 PM SIGNAL MECHANIC [facility] CO2 28 21 - 32 mmol/L 03/13/2016 7:56 PM SIGNAL MECHANIC [facility] Calcium 9.5 8.5 - 10.1 mg/dL 03/13/2016 7:56 PM SIGNAL MECHANIC [facility] Anion Gap 12 5 - 14 mmol/L 03/13/2016 7:56 PM SIGNAL MECHANIC [facility] BUN 14 7 - 18 mg/dL 03/13/2016 7:56 PM SIGNAL MECHANIC [facility]) Creatinine 0.84 0.55 - 1.02 mg/dL 03/13/2016 7:56 PM [facility] BUN/Creatinine Ratio 16.7 12.0 - 20.0 03/13/2016 7:56 PM [facility] eGFR by MDRD >60 >60 mL/min/1.7 3m2 03/13/2016 7:56 PM [facility] ([facility]) eGFR by MDRD >60 >60 mL/min/1.7 3m2 03/13/2016 7:56 PM [facility] ([facility]) Alkaline Phosphatase 89 46 - 116 U/L 03/13/2016 7:56 PM SIGNAL MECHANIC [facility] ALT 33 12 - 78 U/L 03/13/2016 7:56 PM [facility] AST 19 15 - 37 U/L 03/13/2016 7:56 PM [facility] ([facility]) Protein Total 7.2 6.4 - 8.2 gm/dL 03/13/2016 7:56 PM SIGNAL MECHANIC [facility] Albumin 4.1 3.4 - 5.0 gm/dL 03/13/2016 7:56 PM [facility] Bilirubin Total 0.6 0.2 - 1.0 mg/dL 03/13/2016 7:56 PM SIGNAL MECHANIC [facility] Osmolality Calculated 271 261 - 295 mOsm/kg 03/13/2016 7:56 PM [facility] Albumin/Globulin Ratio 1.3(L) 1.5 - 2.2 03/13/2016 7:56 PM [facility] Globulin Total 3.1 2.3 - 3.5 gm/dL 03/13/2016 7:56 PM SIGNAL MECHANIC [facility] ([facility]) Blood BLOOD SPECIMEN / Unknown Lab Venipuncture / Unknown 03/13/2016 7:47 PM SIGNAL MECHANIC 03/13/2016 7:47 PM SIGNAL MECHANIC Lorne Hutchinson MD LAB - CHEMISTRY ORDERAB LES Final Result [facility] [address] * (ABNORMAL) HEMOGLOBIN A1C (08/29/2012 12:44 PM CDT) Hemoglobin A1c 6.8(H) 4.5 - 6.2 % 08/29/2012 12:55 PM CDT [facility] ([facility]) Estimated Average Glucose 148(H) 91 - 126 mg/dL 08/29/2012 12:55 PM CDT [facility] ([facility]) Whole blood specimen (specimen) BLOOD SPECIMEN WITH EDTA / Unknown Lab Venipuncture / Unknown 08/29/2012 12:44 PM CDT 08/29/2012 12:44 PM CDT Steve Willis Jr., MD LAB - CHEMISTRY ORDER DEJAH Final Result Performing Organization Address City/[facility]/ZIP Co de Phone Number [facility] ([facility]) [address] from Last 3 Months or Most Recently Relevant to Health Maintenance Insurance MEDICAID - [place] MEDICAID - OUT OF [place] [address] [place] [address]
== END 2025-02-17 15:30 | disposition home or self-care (01) ==
PROVIDERS: Emergency Provider Registered Nurse; PCP Nurse Practitioner Family
DX: J06.9 Acute upper respiratory infection, unspecified (principal); H66.92 Otitis media, unspecified, left ear; J44.9 Chronic obstructive pulmonary disease, unspecified; E78.5 Hyperlipidemia, unspecified; I10 Essential (primary) hypertension; E11.9 Type 2 diabetes mellitus without complications; F17.210 Nicotine dependence, cigarettes, uncomplicated
CPT/HCPCS: 87081; 87880; 99213; G0463

== ENCOUNTER 2025-03-08 09:46 | Emergency (ER) | payer MEDICAID, SELFPAY ==
--- OUTSIDE RECORDS SUMMARY | 2025-03-08 09:50 | XMS_ITS | Clinical Summary ---
Author Organization [facility] Address [address] [place] [address] Phone Care Team Providers Care Sanitation Truck Cleaner Name Role Phone Apple, Adelaidacristiano TAVARES CNP Primary Care Provider [phone] Allergies No known active allergies Medications lisinopril [...] Screening 1971 Mammogram 1971 TdaP Immunization 1971 Varicella Immunization (1 of 2 - 13+ 2-dose series) 1984 Hepatitis B Immunization (1 of 3 - 19+ 3-dose series) 1990 Pap Smear 1992 Cervical Cancer Screening (CCS) 2001 HPV/Cotest 2001 Cologuard 2016 Colonoscopy 2016 Colorectal Cancer Screening 2016 Immunochemical Fecal Occult Blood 2016 Pneumococcal Immunization (50+ years) (2 of 2 - PCV) 03/05/2019 03/05/2018 Respiratory Syncytial Virus (RSV) Immunization (Adult) (1 - Risk 50-74 years 1-dose series) 2021 Zoster Immunization (1 of 2) 2021 Diabetes: Hemoglobin A1c 08/20/2024 024, 06/12/2023, 06/27/2022, Additional history exists Influenza Immunization (#1) 2024 11/0 05/2020, 04/06/2020, 03/25/2019, Additional history exists SARS-COV-2 Immunization ( season) 2024 11/24/2021, 06/02/2021, 05/12/2021 Diabetes: Nephropathy Screening 07/09/2025 07/09/2024, 11/19/2023, 08/11/2022, Additional history exists DTaP/Tdap/Td Immunization Discontinued 10/02/2014 Pneumococcal Immunization Combined [...] - 145 mmol/L 07/09/2024 11:45 AM CDT [facility] POTASSIUM 3.7 3.5 - 5.1 mmol/L 07/09/2024 11:45 AM CDT [facility] CHLORIDE 106 98 - 107 mmol/L 07/09/2024 11:45 AM CDT [facility] CO2, VENOUS 22 22 - 30 mmol/L 07/09/2024 11:45 AM CDT [facility] ANION GAP 12.7 <18.0 mmol/L 07/09/2024 11:45 AM CDT [facility] GLUCOSE 172(H) 70 - 99 mg/dL 07/09/2024 11:45 AM [facility] BUN 20 10 - 20 mg/dL 07/09/2024 11:45 AM [facility] CREATININE, BLOOD 0.67 0.60 - 1.00 mg/dL 07/09/2024 11:45 AM [facility] BUN/CREATININE RATIO 30(H) 12 - 20 ratio 07/09/2024 11:45 AM T [facility] TOTAL PROTEIN 7.3 6.0 - 8.0 g/dL 07/09/2024 11:45 AM [facility] ALBUMIN 4.1 3.5 - 5.0 g/dL 07/09/2024 11:45 AM [facility] A/G RATIO 1.3 1.0 - 2.2 07/09/2024 11:45 AM [facility] CALCIUM 9.0 8.7 - 10.5 mg/dL 07/09/2024 11:45 AM T [facility] T BILI 1.0 0.2 - 1.2 mg/dL 07/09/2024 11:45 AM [facility] SGOT (AST) 24 <43 U/L 07/09/2024 11:45 AM [facility] SGPT (ALT) 20 <56 U/L 07/09/2024 11:45 AM [facility] ALKALINE PHOSPHATASE 103 40 - 150 U/L 07/09/2024 11:45 AM T [facility] GFR, ESTIMATED >60 >=60 07/09/2024 11:45 AM [facility] Comment: Creatinine Clearance is the preferred criteria for selecting drug dose adjustments in renally impaired patients. The GFR is provided as additional pertinent clinical information. GFR is reported in mL/min/1.73 sq m. Calculation based on the Chronic Kidney Disease Epidemiology Collaboration (CKD- EPI) equation refit without adjustment for race. GFR, EST. >60 >=60 025 11:45 AM [facility] GFR, EST. NONAFRICAN >60 >=60 07/09/2024 11:45 AM CDT [facility] Blood Venipuncture / Unknown 07/09/2024 11:14 AM CDT 07/09/2024 11:26 AM CDT us Enmanuelcarlos Dean Vj DO CHEMISTRY ORDERABLES Fi nal Result [facility] [address] [place] [address] from Last 3 Months or Most Recently Relevant to Health Maintenance Insurance MEDICAID [facility] Advance Directives * Full Code (Latest Code Status on File) Date Activated Date Inactivated Comments 11/11/2018 2:24 PM 11/12/2018 6:34 PM CPR-Full Sam atment: FULL ARREST: Attempt Resuscitation/CPR wit intubation and mechanical ventilation. PRE-ARREST: Use entire range of life support measures to stabilize the patient. Care Teams Sanitation Truck Cleaner Relationship Specialty Start Date End Date Adelaida Apple APRN, SIMON PCP - General Family Medicine 04/21/18
--- OUTSIDE RECORDS SUMMARY | 2025-03-08 09:50 | XMS_ITS | Data Portability ---
Author Organization [facility] Address [address] [place] [address] Care Team Providers Care Parts Classifier Name Role Phone ADELAIDA HOFF Primary Care Provider Unavailabl e Assessment No assessment recorded. Plan of Treatment Reminders Order Date Submit Date Provider Last Modified By Organization Details Last Modified Time Details Appointments ANY 15 2024 03:00P M BRIE NaikN, DIETARY SERVICE AIDE-C Not available Not available Not available Lab CMP, serum or plasma 2024 025 [facility], [address] [place] [address], [address], 07/03/2024 03:08:53 CBC 2024 025 [facility], [address] [place] [address] 2, [place], [address], 07/03/2024 03:08:54 TSH, ultra-sen sitive, serum 2024 025 [facility], [address] [place] [address] 2, [place], [address], 07/03/2024 12:11:55 lipid panel, serum 2024 025 [facility], [address] [place] [address], [facility] 2, [place], [address], 07/03/2024 03:08:52 rapid flu (A+B) 2024 025 In-Office Order, Internal Use Only DO Not Attach Compendium DO Not Attach Compendium, Do Not Delete/merge, 05/13/2024 09:35:28 rapid SARS CoV 2 Ag, QL IA, respirato ry specimen 2024 025 In-Office Order, Internal Use Only DO Not Attach Compendium DO Not Attach Compendium, Do Not Delete/merge, 05/13/2024 09:35:28 HbA1c (hemoglob in A1c), blood 2024 025 In-Office Order, Internal Use Only DO Not Attach Compendium DO Not Attach Compendium, Do Not Delete/merge, 05/13/2024 09:46:37 albumin/c reatinine , mass ratio, urine 2024 025 [facility], [address], [place], [address], 07/03/2024 12:11:54 vitamin D, 25-hydrox y, total, serum 2024 025 [facility], [address], [place], [address], 07/03/2024 12:11:56 HbA1c (hemoglob in A1c), blood 2023 024 In-Office Order, Internal Use Only DO Not Attach Compendium DO Not Attach Compendium, Do Not Delete/merge, 02/11/2024 10:02:24 urinalysi s, dipstick 2023 024 In-Office Order, Internal Use Only DO Not Attach Compendium DO Not Attach Compendium, Do Not Delete/merge, 07/31/2023 11:01:32 HbA1c (hemoglob in A1c), blood 2023 024 In-Office Order, Internal Use Only DO Not Attach Compendium DO Not Attach Compendium, Do Not Delete/merge, 07/31/2023 11:01:33 Referral podiatris t referral 2023 024 [email or web address] [facility], [address] [place] [address] [address], [place], [address], 03/31/2024 14:44:56 Procedures None recorded. Surgeries None recorded. Imaging None recorded. Medication Orders lisinopri l 10 mg tablet 2024 025 [id number] [address] [place], [address], 11/11/2024 10:59:49 atorvasta tin 20 mg tablet 2024 025 [id number] [address] [place], [address], 02/19/2025 15:41:48 cefdinir 300 mg capsule 2024 025 [id number] [address] [place], [address], 11/28/2024 05:02:33 albuterol sulfate HFA 90 mcg/actua tion aerosol inhaler 2024 025 [facility] [address] [place], [address], 11/11/2024 10:58:09 Eucrisa 2 % topical ointment 2024 025 [facility], [address] [place] [address], [address], 11/11/2024 10:59:49 cefdinir 300 mg capsule 2023 025 [id number], [address] [place], [address], 11/28/2024 05:02:33 neomycin- polymyxin -hydrocor t 3.5 mg-10,000 unit/mL-1 % ear drops,chencho p 2023 024 [facility] [address] [place], [address], 05/13/2024 09:08:59 lisinopri l 10 mg tablet 2023 024 [address] [place], [address], 02/11/2024 10:02:04 amoxicill in 500 mg capsule 2023 025 [id number] [address] [place], [address], 05/13/2024 09:08:35 albuterol sulfate 2.5 mg/3 mL (0.083 %) solution for nebulizat ion 2023 024 [address] [place], [address], 02/11/2024 10:02:04 fluticaso ne propionat e 50 mcg/actua tion nasal spray,chencho pension 2023 024 [address] [place], [address], 02/11/2024 10:02:04 clopidogr el 75 mg tablet 2023 024 [address] [place], [address], 02/11/2024 10:02:04 lisinopri l 10 mg tablet 2023 024 [facility], [address] [place] [address], [address], 07/31/2023 11:01:36 albuterol sulfate 2.5 mg/3 mL (0.083 %) solution for nebulizat ion 2023 024 [facility], [address] [place], [address], 07/31/2023 11:04:20 fluticaso ne propionat e 50 mcg/actua tion nasal spray,chencho pension 2023 [facility]6833, [address] [place], [address], 07/31/2023 11:01:37 clopidogr el 75 mg tablet 2023 [facility], [address] [place], [address], 07/31/2023 11:01:38 Patient TargetsNo targets recorded. Patient Instructions Encounter Date Encounter Id Patient Instructions Last Modified By Organization Details Last Modified Time 07/31/2023 [id number] painful urinatio n (dysuria): care instructions Not available 07/31/2023 11:01:29 Quitting Tobacco : Care Instructions Not available 07/31/2023 11:01:29 low sodium diet (2,000 milligram): care instructions Not available 07/31/2023 11:01:29 asthma: your action plan Not available 07/31/2023 11:01:29 When You Want to Lose Weight: Care Instructions Not available 07/31/2023 11:01:29 A healthy lifestyle: care instructions Not available 07/31/2023 11:01:29 learning about vitamin D Not available 07/31/2023 11:01:30 type 2 diabetes: care instructions Not available 07/31/2023 11:01:30 Continue to work on diet and decrease A1C to < 7 with fasting glucose 100. Need to see eye drNica each year for dilated eye exam. Increase activity level to get exercise most days of the week. Work on eating more fresh fruit, veggies and lean protein and less packaged foods. Cut back on the fatty foods, add fish oil or omega three fatty acids; red yeast rice may also help. Drink more water! Low salt diet. Take all medications as prescribed. Keep appointments with PCP and all specialists. Not available 07/31/2023 10:35:04 f/u 6 months DWP barriers to care: none Not available 07/31/2023 10:35:02 02/11/2024 [id number] influenza (flu) vaccine: care instructions Not available 02/11/2024 10:02:04 Quitting Tobacco : Care Instructions Not available 02/11/2024 10:02:04 low sodium diet (2,000 milligram): care instructions Not available 02/11/2024 10:02:04 asthma: your action plan Not available 02/11/2024 10:02:04 When You Want to Lose Weight: Care Instructions Not available 02/11/2024 10:02:04 A healthy lifestyle: care instructions Not available 02/11/2024 10:02:04 learning about vitamin D Not available 02/11/2024 10:02:04 type 2 diabetes: care instructions Not available 02/11/2024 10:02:04 Continue to work on diet and decrease A1C to < 7 with fasting glucose 100. Need to see eye dr. each year for dilated eye exam. Increase activity level to get exercise most days of the week. Work on eating more fresh fruit, veggies and lean protein and less packaged foods. Cut back on the fatty foods, add fish oil or omega three fatty acids; red yeast rice may also help. Drink more water! Low salt diet. Take all medications as prescribed. Keep appointments with PCP and all specialists. Not available 02/11/2024 09:50:54 f/u 3 months DWP barriers to care: none Not available 02/11/2024 10:03:26 03/12/2024 [id number] Take all antibiotics prescribed to you. If any fever or increase in pain, call/return to office. Not available 03/12/2024 17:26:29 keep f/u as planned Not available 03/12/2024 17:26:39 05/13/2024 [id number] Quitting Tobacco : Care Instructions Not available 05/13/2024 09:46:37 learning about type 2 diabetes Not available 05/13/2024 09:46:37 type 2 diabetes: care instructions Not available 05/13/2024 09:46:37 learning about asthma Not available 05/13/2024 09:46:37 When You Want to Lose Weight: Care Instructions Not available 05/13/2024 09:46:37 A healthy lifestyle: care instructions Not available 05/13/2024 09:46:37 Continue all medications as prescribed. Increase fluids. May take OTC cold medicine or throat lozenges as needed for symptom management. May also take Mucinex to help break up congestion. May use nasal saline and cool mist humidifier in room. Return to office if fever or chills or symptoms worsen. Not available 05/13/2024 09:45:54 follow up in 6 months Not available 05/13/2024 09:45:58 11/11/2024 [id number] Quitting Tobacco : Care Instructions Not available 11/11/2024 10:57:05 learning about high blood pressure Not available 11/11/2024 10:57:05 learning about type 2 diabetes Not available 11/11/2024 10:57:05 type 2 diabetes: care instructions Not available 11/11/2024 10:57:05 learning about asthma Not available 11/11/2024 10:57:05 A healthy lifestyle: care instructions Not available 11/11/2024 10:57:05 Continue all medications as prescribed. Increase fluids. May take OTC cold medicine or throat lozenges as needed for symptom management. May also take Mucinex to help break up congestion. May use nasal saline and cool mist humidifier in room. Return to office if fever or chills or symptoms worsen. Not available 11/11/2024 10:44:45 follow up in 6 months Not available 11/11/2024 10:44:46 Reason for Referral [employer]print [employer] Referral for Unco ntrolled type 2 diabetes mellitus Referring Physician: [facility], Encounter Date: 02/11/2024 Results Created Date Observation Date Name Description Value Unit Range Abnormal Flag Note LastModifiedBy Organization Detail LastModifiedTime 07/31/19 24 07/31/2023 urina lysis , dipst ick Leukocytes Trace Not Available In-Offi ce Order Internal Use Only DO Not Attach Compendium DO Not Attach Compendium, Do Not Delete/merge, 07/31/2023 10:33:31 07/31/19 24 07/31/2023 urina lysis , dipst ick Nitrite negati ve Not Available In-Office Order Internal Use Only DO Not Attach Compendium DO Not Attach Compendium, Do Not Delete/merge, 07/31/2023 10:33:31 07/31/19 24 07/31/2023 urina lysis , dipst ick Urobilinogen .2 Not Available In-Of fice Order Internal Use Only DO Not Attach Compendium DO Not Attach Compendium, Do Not Delete/merge, 07/31/2023 10:33:31 07/31/19 24 07/31/2023 urina lysis , dipst ick Protein Trace Not Available In-Office Order Internal Use Only DO Not Attach Compendium DO Not Attach Compendium, Do Not Delete/merge, 07/31/2023 10:33:31 07/31/19 24 07/31/2023 urina lysis , dipst ick pH 5.0 Not Available In-Office Order Internal Use Only DO Not Attach Compendium DO Not Attach Compendium, Do Not Delete/merge, 07/31/2023 10:33:31 07/31/19 24 07/31/2023 urina lysis , dipst ick Blood Large Not Available In-Office Order Internal Use Only DO Not Attach Compendium DO Not Attach Compendium, Do Not Delete/merge, 07/31/2023 10:33:31 07/31/19 24 07/31/2023 urina lysis , dipst ick Specific [place] 1.010 Not Available In-Off ice Order Internal Use Only DO Not Attach Compendium DO Not Attach Compendium, Do Not Delete/merge, 07/31/2023 10:33:31 07/31/19 24 07/31/2023 urina lysis , dipst ick Ketone Negati ve Not Available In-Office Order Internal Use Only DO Not Attach Compendium DO Not Attach Compendium, Do Not Delete/merge, [facility] 07/31/2023 10:33:31 07/31/19 24 07/31/2023 urina lysis , dipst ick Bilirubin Negati ve Not Available In-Office Order Internal Use Only DO Not Attach Compendium DO Not Attach Compendium, Do Not Delete/merge, [facility] 07/31/2023 10:33:31 07/31/19 24 07/31/2023 urina lysis , dipst ick Glucose 1000 Not Available In-Office Order Internal Use Only DO Not Attach Compendium DO Not Attach Compendium, Do Not Delete/merge, [facility] 07/31/2023 10:33:31 07/31/19 24 07/31/2023 urina lysis , dipst ick Appearance Slight ly Cloudy Not Available In-Office Order Internal Use Only DO Not Attach Compendium DO Not Attach Compendium, Do Not Delete/merge, [facility] 07/31/2023 10:33:31 07/31/19 24 07/31/2023 urina lysis , dipst ick Color Pale Yellow Not Available In-Office Order Internal Use Only DO Not Attach Compendium DO Not Attach Compendium, Do Not Delete/merge, [facility] 07/31/2023 10:33:31 07/31/19 24 07/31/2023 HbA1c (hemo globi n A1c), blood HbA1c 7.9 Not Available In-Office Order Internal Use Only DO Not Attach Compendium DO Not Attach Compendium, Do Not Delete/merge, [facility] 07/31/2023 10:34:56 11/19/19 24 11/19/2023 Compr ehens rosamaria metab olic 1999 panel - Serum or Plasm a sodium [moles/volum e] in serum or plasma 140 mmol/ L low: 136mmo l/Lhig h: 145mmo l/L SODIU M 140 136 - 145 mmol/ L 11/18 5:05 PM CDT [facility] Not Available Not Available 06/24/2024 11:53:15 11/19/19 24 11/19/2023 Compr ehens rosamaria metab olic 1999 panel - Serum or Plasm a potassium [moles/volum e] in serum or plasma 3.9 mmol/ L low: 3.5mmo l/Lhig h: 5.1mmo l/L POTAS SIUM 3.9 3.5 - 5.1 mmol/ L 11/18 5:05 PM CDT [facility] Not Available Not Available 06/24/2024 11:53:15 11/19/19 24 11/19/2023 Compr ehens rosamaria metab olic 1999 panel - Serum or Plasm a chloride [moles/volum e] in serum or plasma 110 mmol/ L low: 98mmol /Lhigh : 107mmo l/L high CHLOR GOOD 110 (H) 98 - 107 mmol/ L 11/18 5:05 PM CDT [facility] Not Available Not Available 06/24/2024 11:53:15 11/19/19 24 11/19/2023 Compr ehens rosamaria metab olic 1999 panel - Serum or Plasm a carbon dioxide, total [moles/volum e] in serum or plasma 20 mmol/ L low: 22mmol /Lhigh : 30mmol /L low CO2, VENOU S 20 (L) 22 - 30 mmol/ L 11/18 5:05 PM CDT [facility] Not Available Not Available 06/24/2024 11:53:15 11/19/19 24 11/19/2023 Compr ehens rosamaria metab olic 1999 panel - Serum or Plasm a anion gap in serum or plasma 13.9 mmol/ L high: 18mmol /L ANION GAP 13.9 <18.0 mmol/ L 11/18 5:05 PM CDT [facility] Not Available Not Available 06/24/2024 11:53:15 11/19/19 24 11/19/2023 Compr ehens rosamaria metab olic 2000 panel - Serum or Plasm a glucose [mass/volume ] in serum or plasma 117 mg/dL low: 70mg/d Lhigh: 99mg/d L high GLUCO SE 117 (H) 70 - 99 mg/dL 11/18 5:05 PM CDT [facility] Not Available Not Available 06/24/2024 11:53:15 11/19/19 24 11/19/2023 Compr ehens rosamaria metab olic 2000 panel - Serum or Plasm a urea nitrogen [mass/volume ] in serum or plasma 10 mg/dL low: 10mg/d Lhigh: 20mg/d L BUN 10 10 - 20 mg/dL 11/18 5:05 PM CDT [facility] Not Available Not Available 06/24/2024 11:53:15 11/19/19 24 11/19/2023 Compr ehens rosamaria metab olic 2000 panel - Serum or Plasm a creatinine [mass/volume ] in serum or plasma 0.67 mg/dL low: 0.6mg/ dLhigh : 1mg/dL CREAT ININE , BLOOD 0.67 0.60 - 1.00 mg/dL 11/18 5:05 PM CDT [facility] Not Available Not Available 06/24/2024 11:53:15 11/19/19 24 11/19/2023 Compr ehens rosamaria metab olic 2000 panel - Serum or Plasm a urea nitrogen/cre atinine [mass ratio] in serum or plasma 15 text: 12 - 20 ratio BUN/C REATI NINE RATIO 15 12 - 20 ratio 11/18 5:05 PM CDT [facility] Not Available Not Available 06/24/2024 11:53:15 11/19/19 24 11/19/2023 Compr ehens rosamaria metab olic 2000 panel - Serum or Plasm a protein [mass/volume ] in serum or plasma 7.4 g/dL low: 6.3g/d Lhigh: 8.2g/d L TOTAL PROTE IN 7.4 6.3 - 8.2 g/dL 11/18 5:05 PM CD[facility] Not Available Not Available 06/24/2024 11:53:15 11/19/19 24 11/19/2023 Compr [facility] rosamaria metab olic 1999 panel - Serum or Plasm a albumin [mass/volume ] in serum or plasma 4.6 g/dL low: 3.5g/d Lhigh: 5g/dL ALBUM IN 4.6 3.5 - 5.0 g/dL 11/18 5:05 PM CDT [facility] Not Available Not Available 06/24/2024 11:53:15 11/19/19 24 11/19/2023 Compr ens rosamaria metab olic 1999 panel - Serum or Plasm a albumin/glob ulin [mass ratio] in serum or plasma 1.6 low: 1high: 2.2 A/G RATIO 1.6 1.0 - 2.2 11/18 5:05 PM CDT [facility] Not Available Not Available 06/24/2024 11:53:15 11/19/19 24 11/19/2023 Compr [facility] rosamaria metab olic 1999 panel - Serum or Plasm a calcium [mass/volume ] in serum or plasma 10 mg/dL low: 8.7mg/ dLhigh : 10.5mg /dL CALCI UM 10.0 8.7 - 10.5 mg/dL 11/18 5:05 PM CDT [facility] Not Available Not Available 06/24/2024 11:53:15 11/19/19 24 11/19/2023 Compr [facility] rosamaria metab olic 1999 panel - Serum or Plasm a bilirubin.to delia [mass/volume ] in serum or plasma 0.6 mg/dL low: 0.2mg/ dLhigh : 1.2mg/ dL T BILI 0.6 0.2 - 1.2 mg/dL 11/18 5:05 PM CDT [facility] Not Available Not Available 06/24/2024 11:53:15 11/19/19 24 11/19/2023 Compr [facility] rosamaria metab olic 2000 panel - Serum or Plasm a aspartate aminotransfe rase [enzymatic activity/vol ume] in serum or plasma 22 U/L low: 5U/Lhi gh: 34U/L SGOT (AST) 22 5 - 34 U/L 11/18 5:05 PM CDT [facility] Not Available Not Available 06/24/2024 11:53:15 11/19/19 24 11/19/2023 Compr [facility] olic 1999 panel - Serum or Plasm a alanine aminotransfe rase [enzymatic activity/vol ume] in serum or plasma 28 U/L low: 0U/Lhi gh: 55U/L SGPT (ALT) 28 0 - 55 U/L 11/18 5:05 PM CDT [facility] Not Available Not Available 06/24/2024 11:53:15 11/19/19 24 11/19/2023 Compr [facility] rosamaria metab olic 2000 panel - Serum or Plasm a alkaline phosphatase [enzymatic activity/vol ume] in serum or plasma 107 U/L low: 40U/Lh igh: 150U/L ALKAL INE PHOSP HATAS E 107 40 - 150 U/L 11/18 5:05 PM CDT [facility] [employer] Not Available Not Available 06/24/2024 11:53:15 11/19/19 24 11/19/2023 Compr [facility] rsoam[facility] ic 1999 panel - Serum or Plasm a glomerular filtration rate/1.73 sq M.predicted among non-blacks [volume rate/area] in serum, plasma or blood by creatinine-b ased formula (MDRD) low: 60 GFR, ESTIM ATED >60 >=60 11/18 5:05 PM CDT [facility] [employer] Not Available Not Available 06/24/2024 11:53:15 11/19/19 24 11/19/2023 Compr [facility] rosamaria metab olic 2000 panel - Serum or Plasm a glomerular filtration rate/1.73 sq M.predicted among blacks [volume rate/area] in serum, plasma or blood by creatinine-b ased formula (MDRD) low: 60 GFR, EST. AFRIC AN >60 >=60 11/18 5:05 PM CDT [facility] Not Available Not Available 06/24/2024 11:53:15 11/19/19 24 11/19/2023 Compr ehens rosamaria metab olic 2000 panel - Serum or Plasm a glomerular filtration rate/1.73 sq M.predicted among non-blacks [volume rate/area] in serum, plasma or blood by creatinine-b ased formula (MDRD) low: 60 GFR, EST. NONAF RICAN >60 >=60 11/18 5:05 PM CDT [facility] Not Available Not Available 06/24/2024 11:53:15 11/19/19 24 11/19/2023 Compr ehens rosamaria metab olic 2000 panel - Serum or Plasm a interpretati on and review of laboratory results ABNORM AL Not Available Not Available 11:53:15 02/11/20 24 02/11/2024 HbA1c (hemo globi n A1c), blood HbA1c 7.0 Not Available In-Office Order Internal Use Only DO Not Attach Compendium DO Not Attach Compendium, Do Not Delete/merge, [id number] 02/11/2024 09:50:50 02/21/2002/21/2024 Hemog lobin A1c/H emogl obin. total in Blood hemoglobin A1C, POC 7.3 % low: 4%high : 5.6% Hemog lobin A1C, POC 7.3 4.0 - 5.6 % Not Available Not Available 06/24/2024 11:53:19 05/13/19 25 05/13/2024 HbA1c (hemo globi n A1c), blood HbA1c 6.3 Not Available In-Office Order Internal Use Only DO Not Attach Compendium DO Not Attach Compendium, Do Not Delete/merge, [id number] 05/13/2024 09:36:43 05/13/1905/13/2024 rapid SARS CoV 2 Ag, QL IA, respi rator y speci men rapid SARS CoV 2 Ag, QL IA, respiratory specimen negati ve Not Available In-Office Order Internal Use Only DO Not Attach Compendium DO Not Attach Compendium, Do Not Delete/merge, [id number] 05/13/2024 09:35:02 01/2805/13/2024 rapid flu (A+B) Flu A negati ve Not Available In-Office Order Internal Use Only DO Not Attach Compendium DO Not Attach Compendium, Do Not Delete/merge, [id number] 05/13/2024 09:35:01 05/13/19 25 05/13/2024 rapid flu (A+B) Flu B negati ve Not Available In-Office Order Internal Use Only DO Not Attach Compendium DO Not Attach Compendium, Do Not Delete/merge, [id number] 05/13/2024 09:35:01 07/03/1907/02/2024 LIPID PANEL cholesterol, total 143 mg/dL 100-19 9 Not Available [facility] [address] [place], [address], 07/03/2024 03:08:52 07/03/19 25 07/02/2024 LIPID PANEL triglyceride s 150 mg/dL 0-149 above high normal Not Available [facility] [address] [place], [address], 07/03/2024 03:08:52 07/03/19 25 07/02/2024 LIPID PANEL HDL cholesterol 51 mg/dL 40-999 Not Available [facility] Department [address] [place], [address], 07/03/2024 03:08:52 07/03/19 25 07/02/2024 LIPID PANEL VLDL cholesterol christiana 30 mg/dL 5-40 Not Available [facility] Department [address] [place], [address], 07/03/2024 03:08:52 07/03/19 25 07/02/2024 LIPID PANEL LDL chol calc ([facility]) 84 mg/dL 0-99 Not Available [facility] Department [address] [place], [address], 07/03/2024 03:08:52 07/03/19 25 07/02/2024 COMP. METAB OLIC PANEL (14) glucose 206 mg/dL 70-99 above high normal Not Available [facility] [address] [place], [address], 07/03/2024 03:08:53 07/03/19 25 07/02/2024 COMP. METAB OLIC PANEL (14) BUN 13 mg/dL 6-24 Not Available [facility] [address] [place], [address], 07/03/2024 03:08:53 07/03/19 25 07/02/2024 COMP. METAB OLIC PANEL (14) creatinine 0.52 mg/dL 0.76-1 .27 below low normal Not Available [facility] [address] [place] [address], [address], 07/03/2024 03:08:53 07/03/19 25 07/02/2024 COMP. METAB OLIC PANEL (14) eGFR 111 >=60 Units for eGFR value s are mL/mi n/1.7 3 The eGFR Calcu latio n has not been valid ated for patie nts under the age of 18. If test resul ts are displ ayed for a patie nt under the age of 18, disre maria esther that value . Not Available [facility] Department [address] [place] [address], [address], 07/03/2024 03:08:53 07/03/19 25 07/02/2024 COMP. METAB OLIC PANEL (14) BUN/creatini ne ratio 25 9-23 above high normal Not Available [facility] [address] [place] [address], [address], 07/03/2024 03:08:53 07/03/19 25 07/02/2024 COMP. METAB OLIC PANEL (14) sodium 142 mmol/ L 134-14 4 Not Available [facility] [address] [place], [address], 07/03/2024 03:08:53 07/03/19 25 07/02/2024 COMP. METAB OLIC PANEL (14) potassium 4.6 mmol/ L 3.5-5. 2 Not Available [facility] [address] [place], [address], 07/03/2024 03:08:53 07/03/19 25 07/02/2024 COMP. METAB OLIC PANEL (14) chloride 106 mmol/ L 96-106 Not Available [facility] [address] [place], [address], 07/03/2024 03:08:53 07/03/19 25 07/02/2024 COMP. METAB OLIC PANEL (14) carbon dioxide, total 25 mmol/ L 20-29 Not Available [facility] [address] [place], [address], 07/03/2024 03:08:53 07/03/19 25 07/02/2024 COMP. METAB OLIC PANEL (14) calcium 9.7 mg/dL 8.7-10 .2 Not Available [facility] [address] [place], [address], 07/03/2024 03:08:53 07/03/19 25 07/02/2024 COMP. METAB OLIC PANEL (14) protein, total 6.7 g/dL 6.0-8. 5 Not Available [facility] [address] [place], [address], 07/03/2024 03:08:53 07/03/19 25 07/02/2024 COMP. METAB OLIC PANEL (14) albumin 4.4 g/dL 3.8-4. 9 Not Available [facility] [facility] [address] [place], [address], 07/03/2024 03:08:53 07/03/19 25 07/02/2024 COMP. METAB OLIC PANEL (14) globulin, total 2.3 g/dL 1.5-4. 5 Not Available [facility] [address] [place], [address], 07/03/2024 03:08:53 07/03/19 25 07/02/2024 COMP. METAB OLIC PANEL (14) A/G ratio 2.0 1.2-2. 2 Not Available [facility] [address] [place] [address], [id number], 07/03/2024 03:08:53 07/03/19 25 07/02/2024 COMP. METAB OLIC PANEL (14) bilirubin, total 0.4 mg/dL 0.0-1. 2 Not Available [facility] [address] [place] [address], [id number], 07/03/2024 03:08:53 07/03/19 25 07/02/2024 COMP. METAB OLIC PANEL (14) alkaline phosphatase 123 IU/L 44-121 above high normal Not Available [facility] [address] [place] [address], [address], 07/03/2024 03:08:53 07/03/19 25 07/02/2024 COMP. METAB OLIC PANEL (14) AST (SGOT) 17 U/L 0-[address] [facility] Department [address] [place] [address], [address], 07/03/2024 03:08:53 07/03/19 25 07/02/2024 COMP. METAB OLIC PANEL (14) ALT (SGPT) 20 IU/L 0-[address] [facility] Department [address] [place] [address], [id number], 07/03/2024 03:08:53 07/03/19 25 07/02/2024 CBC, PLATE LET, NO DIFFE RENTI AL WBC 8.0 x10e3 /uL 3.4-10 .8 Not Available [facility] [address] [place] [address], [address], 07/03/2024 03:08:54 07/03/19 25 07/02/2024 CBC, PLATE LET, NO DIFFE RENTI AL RBC 5.63 x10e6 /uL 3.77-5 .28 above high normal Not Available [facility] [address] [place], [address], 07/03/2024 03:08:54 07/03/19 25 07/02/2024 CBC, PLATE LET, NO DIFFE RENTI AL hemoglobin 17.5 g/dL 11.1-1 5.9 above high normal Not Available [facility] [address] [place], [address], 07/03/2024 03:08:54 07/03/19 25 07/02/2024 CBC, PLATE LET, NO DIFFE RENTI AL hematocrit 53.5 % 34.0-4 6.6 above high normal Not Available [facility] [address] [place], [address], 07/03/2024 03:08:54 07/03/19 25 07/02/2024 CBC, PLATE LET, NO DIFFE RENTI AL MCV 95 fL 79-97 Not Available [facility] [address] [place], [address], 07/03/2024 03:08:54 07/03/19 25 07/02/2024 CBC, PLATE LET, NO DIFFE RENTI AL MCH 31.1 pg 26.6-3 3.0 Not Available [facility] [address] [place], [address], 07/03/2024 03:08:54 07/03/19 25 07/02/2024 CBC, PLATE LET, NO DIFFE RENTI AL MCHC 32.7 g/dL 31.5-3 5.7 Not Available [facility] [address] [place], [address], 07/03/2024 03:08:54 07/03/19 25 07/02/2024 CBC, PLATE LET, NO DIFFE RENTI AL RDW 13.8 % 11.5-1 4.5 Not Available [facility] [address] [place], [address], 07/03/2024 03:08:54 07/03/19 25 07/02/2024 CBC, PLATE LET, NO DIFFE RENTI AL platelets 156 x10e3 /uL 150-45 0 Mean Plate let Volum e 10.7 fL 8.9-1 2.7 N Not Available [facility] [address] [place], [address], 07/03/2024 03:08:54 07/03/19 25 07/02/2024 CBC, PLATE LET, NO DIFFE RIVERATI AL NRBC 0 % 0-0 Not Available [facility] [address] [place], [address], 07/03/2024 03:08:54 07/03/19 25 07/03/2024 ALBUM IN/CR EATIN INE RATIO ,URIN E creatinine, urine 28.0 mg/dL notest ab. Not Available [facility] ([facility]) [address] [facility], [place], [address], 07/03/2024 12:11:54 07/03/19 25 07/03/2024 ALBUM IN/CR EATIN INE RATIO ,URIN E albumin, urine 20.0 ug/mL notest ab. Not Available [facility] ([facility]) [address] [place], [address], 07/03/2024 12:11:54 07/03/19 25 07/03/2024 ALBUM IN/CR EATIN INE RATIO ,URIN E alb/creat ratio 71 mg/g_ creat 0-29 above high normal Mirela l: 0 - 29 Moder ately incre ased: 30 - 300 Sever yamilka incre ased: >300 Not Available [facility] ([facility]) [address] [place], [address], 07/03/2024 12:11:54 07/03/19 25 07/03/2024 TSH RFX ON ABNOR MAL TO FREE T4 TSH 1.580 uIU/m L 0.450- 4.500 Not Available [facility] ([facility]) [address] [facility], [place], [address], 07/03/2024 12:11:55 07/03/1907/03/2024 VITAM IN D, 25-HY DROXY vitamin D, 25-hydroxy 24.8 NG/mL 30.0-1 00.0 below low normal Vitam in D defic iency has been defin ed by the Insti tute of Medic ine and an Endoc rine Socie ty pract ice guide line as a level of serum 25-OH vitam in D less than 20 ng/mL (1,2) . The Endoc rine Socie ty went on to furth er defin e vitam in D insuf ficie ncy as a level betwe en 21 and 29 ng/mL (2). 1. IOM (Inst itute of Medic ine). 2010. Jose Antonio ry refer ence akua es for calci um and D. Kena ellis [place]: The [facility] Press . 2. Roverto butler [place], Iman sanders [place], Suman off-F errar i ALEJO, et al. Evalu ation , treat ment, and preve ntion of vitam in D defic iency : an Endoc rine Socie ty clini christiana pract ice guide line. JCEM. 2010; 96(7) :1911 -30. Not Available [facility] ([facility]) [address] [facility], [place], [address], 07/03/2024 12:11:56 07/10/1907/09/2024 Compr ehens rosamaria metab olic 1999 panel - Serum or Plasm a sodium [moles/volum e] in serum or plasma 137 mmol/ L low: 136mmo l/Lhig h: 145mmo l/L Not Available Not Available 11/07/2024 14:09:10 07/10/1907/09/2024 Compr ehens rosamaria metab olic 2000 panel - Serum or Plasm a potassium [moles/volum e] in serum or plasma 3.7 mmol/ L low: 3.5mmo l/Lhig h: 5.1mmo l/L Not Available Not Available 11/07/2024 14:09:10 07/10/19 25 07/09/2024 Compr ehens rosamaria metab olic 1999 panel - Serum or Plasm a chloride [moles/volum e] in serum or plasma 106 mmol/ L low: 98mmol /Lhigh : 107mmo l/L Not Available Not Available 11/07/2024 14:09:10 07/10/19 25 07/09/2024 Compr ehens rosamaria metab olic 1999 panel - Serum or Plasm a carbon dioxide, total [moles/volum e] in serum or plasma 22 mmol/ L low: 22mmol /Lhigh : 30mmol /L Not Available Not Available 11/07/2024 14:09:10 07/10/19 25 07/09/2024 Compr [facility] rosamaria metab olic 2000 panel - Serum or Plasm a anion gap in serum or plasma by calculation 12.7 mmol/ L high: 18mmol /L Not Available Not Available 11/07/2024 14:09:10 07/10/19 25 07/09/2024 [facility]jiens rosam[facility] olic 1999 panel - Serum or Plasm a glucose [mass/volume ] in serum or plasma 172 mg/dL low: 70mg/d Lhigh: 99mg/d L high Not Available Not Available 11/07/2024 14:09:10 07/10/19 25 07/09/2024 Compr [facility] rosamaria metab olic 1999 panel - Serum or Plasm a urea nitrogen [mass/volume ] in serum or plasma 20 mg/dL low: 10mg/d Lhigh: 20mg/d L Not Available Not Available 11/07/2024 14:09:10 07/10/19 25 07/09/2024 Compr [facility] olic 1999 panel - Serum or Plasm a creatinine [mass/volume ] in serum or plasma 0.67 mg/dL low: 0.6mg/ dLhigh : 1mg/dL Not Available Not Available 11/07/2024 14:09:10 07/10/19 25 07/09/2024 Compr [facility] rosamaria metab olic 2000 panel - Serum or Plasm a urea nitrogen/cre atinine [mass ratio] in serum or plasma 30 text: 12 - 20 ratio high Not Available Not Available 11/07/2024 14:09:10 07/10/19 25 07/09/[facility]24 [facility] 1999 panel - Serum or Plasm a protein [mass/volume ] in serum or plasma 7.3 g/dL low: 6g/dLh igh: 8g/dL Not Available Not Available 11/07/2024 14:09:10 07/10/19 25 07/09/2024 [facility] 1999 panel - Serum or Plasm a albumin [mass/volume ] in serum or plasma 4.1 g/dL low: 3.5g/d Lhigh: 5g/dL Not Available Not Available 11/07/2024 14:09:10 07/10/1907/09/2024 [facility] 1999 panel - Serum or Plasm a albumin/glob ulin [mass ratio] in serum or plasma 1.3 low: 1high: 2.2 Not Available Not Available 11/07/2024 14:09:10 07/10/19 25 07/09/2024 [facility] [place] [address] panel - Serum or Plasm a calcium [mass/volume ] in serum or plasma 9 mg/dL low: 8.7mg/ dLhigh : 10.5mg /dL Not Available Not Available 11/07/2024 14:09:10 07/10/19 25 07/09/2024 [facility] 1999 panel - Serum or Plasm a bilirubin.to delia [mass/volume ] in serum or plasma 1 mg/dL low: 0.2mg/ dLhigh : 1.2mg/ dL Not Available Not Available 11/07/2024 14:09:10 07/10/1907/09/2024 [facility] 1999 panel - Serum or Plasm a aspartate aminotransfe rase [enzymatic activity/vol ume] in serum or plasma 24 U/L high: 43U/L Not Available Not Available 11/07/2024 14:09:10 07/10/19 25 07/09/2024 [facility] 2000 panel - Serum or Plasm a alanine aminotransfe rase [enzymatic activity/vol ume] in serum or plasma 20 U/L high: 56U/L Not Available Not Available 11/07/2024 14:09:10 07/10/1907/09/2024 Compr ehens rosamaria metab olic 1999 panel - Serum or Plasm a alkaline phosphatase [enzymatic activity/vol ume] in serum or plasma 103 U/L low: 40U/Lh igh: 150U/L Not Available Not Available 11/07/2024 14:09:10 07/10/1907/09/2024 Compr ehens rosamaria metab olic 1999 panel - Serum or Plasm a glomerular filtration rate [volume rate/area] in serum, plasma or blood by creatinine-b ased formula (CKD-epi 2020)/1.73 sq M low: 60 Creat inine Clear ance is the prefe rred crite adriano for selec ting drug dose adjus tment s in renal ly impai red patie nts. The GFR is provi ded as addit ional perti nent clini christiana infor matio n. GFR is repor rex in mL/mi n/1.7 3 sq m. Calcu latio n based on the Chron ic Kidne y Disea se Epide miolo gy Colla borat ion (CKD- EPI) equat ion refit witho ut adjus tment for race. Not Available Not Available 11/07/2024 14:09:10 07/10/1907/09/2024 Compr ehens rosamaria metab olic 1999 panel - Serum or Plasm a glomerular filtration rate [volume rate/area] in serum, plasma or blood by creatinine-b ased formula (MDRD)/1.73 sq M among black population low: 60 Not Available Not Available 11/07/2024 14:09:10 07/10/1907/09/2024 Compr ehens rosamaria metab olic 2000 panel - Serum or Plasm a glomerular filtration rate [volume rate/area] in serum, plasma or blood by creatinine-b ased formula (MDRD)/1.73 sq M among non black population low: 60 Not Available Not Available 11/07/2024 14:09:10 07/10/19 25 07/09/2024 Compr ehens rosamaria metab olic 2000 panel - Serum or Plasm a interpretati on and review of laboratory results ABNORM AL Not Available Not Available 14:09:10 08/21/19 08/20/2024 Hemog lobin A1c/H emogl obin. total in Blood hemoglobin A1C, POC 8 % low: 4%high : 5.6% abnormal Hemog lobin A1C, POC 8.0 (A) 4.0 - 5.6 % Not Available Not Available 08/20/2024 17:08:15 08/21/19 25 08/20/2024 Hemog lobin A1c/H emogl obin. total in Blood interpretati on and review of laboratory results ABNORM AL Not Available Not Available 17:08:15 11/21/19 25 11/20/2024 Hemog lobin A1c/H emogl obin. total in Blood hemoglobin A1C, POC 6.8 % low: 4%high : 5.6% abnormal Not Available Not Available 11/21/2024 08:58:34 11/21/19 25 11/20/2024 Hemog lobin A1c/H emogl obin. total in Blood interpretati on and review of laboratory results Abnorm al Not Available Not Available 08:58:34 Result Notes None recorded. Problems Name Problem SNOMED Code Status Onset Date Resolution Date Notes Provider Name and Address Organization Details Recorded Time Diabetes mellitus 77984085 Completed 201712/04/2018 Removal Reason: Kassie Hoff APN, FNP-C Attn: Accounting ,[address] [place], [address] , [facility] 9 11:12:23 Hyperten sive disorder 88762168 Active 2017 Not Available [facility] 4 14:48:39 Asthma 784625309 Active 2017 Adelaida Hoff APN, FNP-C Attn: Accounting ,[address] [facility], [place], [address] , [facility] 5 09:44:57 Obesity 564228140 Active 2017 Not Available [facility] 4 14:48:39 Dysuria 31697971 Active 2017 Not Available [facility] 4 14:48:39 Candidia sis of mouth 68367141 Active 2017 Not Available [facility] 4 14:48:39 Posterio r rhinorrh ea 06067220 Active 2017 Not Available [facility] 4 14:48:39 Noncompl iance with treatmen t 0194427 Active 2017 Not Available [facility] 4 14:48:39 Deep venous thrombos is 355793263 Active 2018 DVT L poplitea l and peroneal veins, thrombut in L lesser saphenou s - admitted for initiati ng treatmen t Adelaida Hoff APN DIETARY SERVICE AIDE-C Attn: Accounting ,[address] [facility], [place], [address] , [facility] 5 09:44:57 Type 2 diabetes mellitus 25017848 Active 2018 Adelaida Hoff APN, FNP-C Attn: Accounting ,[address] [place], [address] , [facility] 5 09:44:57 History of deep vein thrombos is 649262304 Active 2018 Not Available [facility] 4 14:48:38 Dysfunct ion of eustachi an tube 63349217 Active 2018 Not Available [facility] 4 14:48:39 Vitamin D deficien cy 22590154 Active 2019 Not Available [facility] 4 14:48:39 Recurren t urinary tract infectio n 888432826 Active 2019 Adelaida Hoff APN, FNP-C Attn: Accounting ,[address] [facility], [place], [address] , [place] [facility] 5 09:44:57 Uncontro lled type 2 diabetes mellitus 221161394 Completed 201905/13/2024 Adelaida Hoff APN, FNP-C Attn: Accounting ,[address] [facility], [place], [address] , [place] [facility] 5 09:38:48 Bacteriu adriano 08605439 Active 2019 Not Available [facility] 4 14:48:39 Hemoglob in above referenc e range 405065541 Active 2019 Not Available [facility] 4 14:48:38 Atopic dermatit is 00762356 Active 2020 Not Available [facility] 4 14:48:38 Tobacco user 234275678 Active 2021 Not Available [facility] 4 14:48:38 History of calculus of kidney 709774637 Active 2021 Not Available [facility] 4 14:48:39 Candidia sis of vagina 91918692 Active 2021 Not Available [facility] 4 14:48:39 Contact dermatit is 27284493 Active 2021 Not Available [facility] 4 14:48:39 Notes:11/12/2018-discharge s kadie for [facility]-Primary DX: Acute deep vein thrombosis of left lower extremity. Final DX: Acute DVT left lower extremity, 2. HTN, 3. Diabetes, 4. COPD and Asthma Problem Notes None recorded. Procedures Surgical History Date Name Laterality Status Provider Name and Address Organization Details Recorded Time 8 Caesarean Section completed Kimber Pritchard [facility] 11/12/2019 09:42:19 Imaging Results None recorded. Procedure Notes None recorded. Medical Equipment None Reported. Allergies Allergen ID Allergen Name Allergen Category Reaction Reaction Severity Criticality Documentation Date Start Date Code Code System Note Provider Name and Address Organization Details Recorded Time 965548 metformin medicatio n vomiting severe Not available 03/25/2019 6809 RxNorm Adelaida Hoff SAMPLE BOX MAKER, DIETARY SERVICE AIDE-C Attn: Patrick g,[address] [facility], [place], [address], [facility] 9 12:10:23 [id number] Steglatro medicatio n rash severe Not available 03/25/201919918 11 RxNorm Adelaida Hoff, SAMPLE BOX MAKER, DIETARY SERVICE AIDE-C Attn: Accountin g,[address] [facility], [place], [address], [facility] 9 12:10:40 658534 Jardiance medicatio n rash Not available Not available 07/08/2019 78750 59 RxNorm Adelaida Hoff APN, DIETARY SERVICE AIDE-C Attn: Accountin g,[address] [facility], [place], [address], [place] [facility] 0 10:18:56 [id number] Bactrim medicatio n rash Not available Not available 02/25/2020 14531 9 RxNorm blist ers Adelaida Hoff APN, DIETARY SERVICE AIDE-C Attn: Accountin g,[address] [facility], [place], [address], [place] [facility] 0 17:18:16 [id number] linaglipt in medicatio n rash Not available Not available 05/13/20242020 09459 99 RxNorm Adelaida Hoff APN, DIETARY SERVICE AIDE-C Attn: Accountin g,[address] [facility], [place], [address], [place] [facility] 5 09:45:14 Medications Name Sig Start Date Stop Date Status Note LastModified by Organization Details LastModified Time amoxicilli n 500 mg capsule TAKE 1 CAPSULE BY MOUTH EVERY 8 HOURS FOR 10 DAYS 05/13 completed Not Available Not Available Not Available neomycin-p olymyxin-h ydrocort 3.5 mg/mL-10,0 00 unit/mL-1 % ear solution PLACE 4 DROPS IN BOTH EARS 4 TIMES A DAY FOR 10 DAYS. 07/30 completed Not Available Not Available Not Available nystatin 100,000 unit/mL oral suspension TAKE 5 ML BY MOUTH FOUR TIMES DAILY FOR 14 DAYS 11/21 completed still has for thrush Not Available Not Available Not Available nitrofuran toin macrocryst al 50 mg capsule TAKE 1 CAPSULE BY MOUTH TWICE A DAY 05/23 completed Not Available Not Available Not Available atorvastat in 20 mg tablet TAKE 1 TABLET BY MOUTH EVERY DAY 2024 active Not Available Not Available Not Avai lable ipratropiu m 0.5 mg-albuter ol 3 mg (2.5 mg base)/3 mL nebulizati on soln INHALE ONE VIAL IN NEBULIZE R FOUR TIMES A DAY NEEDED active Not Available Not Available No t Available albuterol sulfate 2.5 mg/3 mL (0.083 %) solution for nebulizati on INHALE 3 ML BY NEBULIZA TION 4 TIMES A DAY NEEDED 2024 active Not Available Not Available Not Avai lable cetirizine 10 mg tablet TAKE 1 TABLET BY MOUTH EVERY DAY active Not Available Not Available No t Available fluconazol e 150 mg tablet TAKE 1 TABLET BY MOUTH ONE TIME PER WEEK active Not Available Not Available No t Available fluconazol e 200 mg tablet TAKE 1 TABLET BY MOUTH EVERY DAY 07/30 completed Not Available Not Available Not Available phenazopyr idine 200 mg tablet TAKE 1 TABLET BY MOUTH EVERY 8 HOURS NEEDED FOR BLADDER SPASMS 11/11 completed Not Available Not Available Not Available ondansetro n HCl 4 mg tablet TAKE 1 TABLET BY MOUTH EVERY 6 HOURS 01/04 completed Not Available Not Available Not Available glipizide 10 mg tablet TAKE 1 TABLET BY MOUTH EVERY DAY 07/30 completed Not Available Not Available Not Available Advair Diskus 100 mcg-50 mcg/dose powder for inhalation INHALE ONE PUFF BY MOUTH TWO TIMES A DAY RINSE AFTER EACH USE 12/28 completed Not Available Not Available Not Available clopidogre l 75 mg tablet TAKE 1 TABLET BY MOUTH EVERY DAY active Not Available Not Available No t Available ciprofloxa raine 500 mg tablet TAKE 1 TABLET BY MOUTH TWICE A DAY FOR 7 DAYS 12/28 completed Not Available Not Available Not Available sulfametho xazole 800 mg-trimeth oprim 160 mg tablet TAKE 1 TABLET BY MOUTH TWICE A DAY 12/28 completed Not Available Not Available Not Available triamcinol one acetonide 0.1 % topical cream APPLY THIN COAT TO AFFECTED AREA TWICE A DAY active Not Available Not Available No t Available Miconazole -7 2 % vaginal cream 01/04 completed Not Available Not Available Not Available ofloxacin 0.3 % ear drops 08/10 completed Not Available Not Available Not Available tamsulosin 0.4 mg capsule TAKE 1 CAPSULE BY MOUTH EVERY DAY 2024 active Not Available Not Available Not Avai lable OneTouch Ultra Test strips USE TO TEST BLOOD GLUCOSE TWICE DAILY active Not Available Not Available No t Available phenazopyr idine 100 mg tablet TAKE 1 TABLET (100 MG TOTAL) BY MOUTH 3 TIMES A DAY NEEDED FOR URINARY PAIN 07/31 completed Not Available Not Available Not Available cephalexin 500 mg capsule TAKE 1 CAPSULE BY MOUTH 3 TIMES DAILY FOR 7 DAYS. INDICATI ONS: URINARY TRACT INFECTIO N 02/10 completed Not Available Not Available Not Available dexamethas one 4 mg tablet TAKE 1 TABLET BY MOUTH TWICE A DAY active Not Available Not Available No t Available lisinopril 10 mg tablet TAKE 1 TABLET BY MOUTH EVERY DAY active Not Available Not Available No t Available warfarin 5 mg tablet TAKE 2 TABLETS BY MOUTH EVERY DAY 07/30 completed Not Available Not Available Not Available Advair Diskus 250 mcg-50 mcg/dose powder for inhalation INHALE 1 PUFF TWICE A DAY BY INHALATI ON ROUTE. active Not Available Not Available No t Available gabapentin 300 mg capsule TAKE 1 CAPSULE BY MOUTH EVERY DAY AT NIGHT active Not Available Not Available No t Available enoxaparin 150 mg/mL subcutaneo us syringe 12/04 completed Not Available Not Available Not Available montelukas t 10 mg tablet TAKE 1 TABLET BY MOUTH EVERY DAY 2024 active Not Available Not Available Not Avai lable hydrochlor othiazide 25 mg tablet TAKE 1 TABLET BY MOUTH EVERY DAY active Not Available Not Available No t Available ergocalcif fatuma (vitamin D2) 1,250 mcg (50,000 unit) capsule TAKE 1 CAPSULE BY MOUTH ONE TIME PER WEEK 2024 active Not Available Not Available Not Avai lable warfarin 1 mg tablet TAKE 1 TABLETS BY MOUTH EVERY DAY 11/11 completed Not Available Not Available Not Available lisinopril 10 mg-hydroch lorothiazi de 12.5 mg tablet Take 1 tablet every day by oral route. 03/05 completed Not Available Not Available Not Available cefuroxime axetil 500 mg tablet TAKE 1 ORAL TABLET 2 TIMES A DAY FOR 5 DAYS. 12/28 completed Not Available Not Available Not Available albuterol sulfate HFA 90 mcg/actuat ion aerosol inhaler INHALE 2 PUFFS BY MOUTH EVERY 4 HOURS NEEDED active Not Available Not Available No t Available oxybutynin chloride 5 mg tablet TAKE 1 TABLET BY MOUTH EVERY DAY active Not Available Not Available No t Available cefdinir 300 mg capsule Take 1 capsule every 12 hours by oral route for 10 days. 11/28 completed Not Available Not Available Not Available fluticason e propionate 50 mcg/actuat ion nasal spray,susp ension SPRAY 1 SPRAY BY INTRANAS AL ROUTE EVERY DAY active Not Available Not Available No t Available glipizide 5 mg tablet Take 1 tablet every day by oral route. 08/10 completed Not Available Not Available Not Available amoxicilli n 875 mg-potassi um clavulanat e 125 mg tablet TAKE 1 TABLET BY MOUTH EVERY 12 HOURS FOR 10 DAYS 11/24 completed Not Available Not Available Not Available neomycin-p olymyxin-h ydrocort 3.5 mg-10,000 unit/mL-1 % ear drops,susp INSTILL 4 DROPS INTO AFFECTED EAR(S) BY OTIC ROUTE 3 TIMES PER DAY 05/13 completed Not Available Not Available Not Available nitrofuran toin monohydrat e/macrocry stals 100 mg capsule TAKE 1 CAPSULE BY MOUTH TWICE A DAY FOR 5 DAYS 11/08 completed Not Available Not Available Not Available albuterol 11/21 completed Not Available Not Available Not Available BD Ultra-Fine Short Pen Needle 31 gauge x 5/16 USE TO INJECT BASAGLAR TWO TIMES A DAY active Not Available Not Available No t Available Januvia 50 mg tablet Take 1 tablet every day by oral route. 12/04 completed has not been able to get Not Available Not Available Not Available Symbicort 160 mcg-4.5 mcg/actuat ion HFA aerosol inhaler Inhale 2 puffs twice a day by inhalati on route. 03/13 completed change to airduo Not Available Not Available Not Available cholecalci ferol (vitamin D3) 1,250 mcg (50,000 unit) capsule Take 1 capsule by oral route. 03/25 completed 1 time a week Not Available Not Available Not Available Lantus Solostar U-100 Insulin 100 unit/mL (3 mL) subcutaneo us pen INJECT 54 UNITS UNDER THE SKIN ONCE DAILY 05/13 completed Not Available Not Available Not Available Dulera 100 mcg-5 mcg/actuat ion HFA aerosol inhaler TAKE 2 PUFFS BY MOUTH TWICE A DAY 10/08 completed Not Available Not Available Not Available Chantix Starting Month Box 0.5 mg (11)-1 mg (42) tablets in dose pack 03/25 completed 019-ins won't cover Not Available Not Available Not Available Victoza 2-Jeanmarie 0.6 mg/0.1 mL (18 mg/3 mL) subcutaneo us pen injector INJECT 0.6MG SUBQ DAILY FOR 2 WEEKS AND THEN INCREASE TO 1.2MG DAILY. 08/23 completed Not Available Not Available Not Available Jardiance 25 mg tablet TAKE 1 TABLET (25 MG TOTAL) BY MOUTH DAILY. active Not Available Not Available No t Available Trulicity 1.5 mg/0.5 mL subcutaneo us pen injector INJECT 0.5 ML (1.5 MG TOTAL) UNDER THE SKIN EVERY 7 DAYS E11.65 05/13 completed Not Available Not Available Not Available Trulicity 0.75 mg/0.5 mL subcutaneo us pen injector INJECT 0.5 ML (0.75 MG TOTAL) UNDER THE SKIN EVERY 7 DAYS 02/10 completed Not Available Not Available Not Available Eucrisa 2 % topical ointment 2024 active Not Available Not Available Not Avindu kim AirDuo RespiClick 113 mcg-14 mcg/actuat ion breath activated Inhale 1 puff twice a day by inhalati on route. 03/25 completed Not Available Not Available Not Available Steglatro 5 mg tablet Take 1 tablet every day by oral route. 07/02 completed Not Available Not Available Not Available OneTouch Ultra Blue Test Strip USE TO TEST BLOOD GLUCOSE TWICE DAILY 2020 active Not Available Not Available Not Avai lable BD Lesli 2nd Gen Pen Needle 32 gauge x 5/32 USE TO INJECT LANTUS 1 TIME EACH DAY AND VICTOZA 1 TIME EACH DAY active Not Available Not Available No t Available OneTouch Ultra2 Meter use to check blood glucose twice a day active Not Available Not Available No t Available OneTouch Delica Plus Lancet 33 gauge USE TO CHECK BLOOD GLUCOSE TWICE DAILY active Not Available Not Available No t Available Trulicity 3 mg/0.5 mL subcutaneo us pen injector INJECT 0.5 ML (3 MG TOTAL) UNDER THE SKIN EVERY 7 DAYS E1.65 11/11 completed Not Available Not Available Not Available Mounjaro 7.5 mg/0.5 mL subcutaneo us pen injector INJECT 0.5 ML (7.5 MG TOTAL) UNDER THE SKIN EVERY 7 DAYS active Not Available Not Available No t Available Mounjaro 5 mg/0.5 mL subcutaneo us pen injector PLEASE SEE ATTACHED FOR DETAILED DIRECTIO NS 11/11 completed Not Available Not Available Not Available Mounjaro 2.5 mg/0.5 mL subcutaneo us pen injector PLEASE SEE ATTACHED FOR DETAILED DIRECTIO NS 11/11 completed Not Available Not Available Not Available Vitals Date Recorded Body height Body mass index (BMI) Body weight Oxygen saturation Respiratory rate Body temperature Heart rate Systolic And Diastolic Provider Name and Address Organization Details Last Updated DateTime 5 162.56 cm 41.5 kg/m2 461041. 35 g 98 % 16 /min 98 [degF] 58 /min 128/80 mm[Hg] VIOLA Hurt [place] - [facility] 5 09:11:43 Date Recorded Body height Body mass index (BMI) Body weight Oxygen saturation Heart rate Respiratory rate Body temperature Systolic And Diastolic Provider Name and Address Organization Details Last Updated DateTime 4 162.56 cm 42.4 kg/m2 959382. 32 g 96 % 84 /min 16 /min 97.5 [degF] 130/74 mm[Hg] VIOLA Hurt [place] - [facility] 4 10:30:57 Date Recorded Body height Body mass index (BMI) Body weight Oxygen saturation Body temperature Heart rate Systolic And Diastolic Provider Name and Address Organization Details Last Updated DateTime 5 162.56 cm 41.4 kg/m2 177919. 51 g 96 % 98.6 [degF] 62 /min 143/82 mm[Hg] Alisha [place] [facility] - [facility] 5 10:37:29 Date Recorded Body height Body mass index (BMI) Body weight Oxygen saturation Respiratory rate Body temperature Heart rate Systolic And Diastolic Systolic And Diastolic Provider Name and Address Organization Details Last Updated DateTime 4 162.56 cm 42.9 kg/m2 335348. 09 g 97 % 16 /min 97.5 [degF] 60 /min 168/76 mm[Hg] 154/84 mm[Hg] KimberVIOLA White [facility] 4 10:09:53 Date Recorded Body height Heart rate Oxygen saturation Body mass index (BMI) Body weight Body temperature Respiratory rate Systolic And Diastolic Provider Name and Address Organization Details Last Updated DateTime 4 162.56 cm 94 /min 96 % 42.9 kg/m2 249494. 09 g 98 [degF] 16 /min 124/78 mm[Hg] Sharri Holman [place] - [facility] 4 17:08:05 Social History Question Answer Notes LastModified by Organizat ion Details LastModified Time Tobacco Smoking Status Current Every Day Smoker Lorraine Britton MA [facility], [facility] 01/04/2021 16:01:02 Do You Have An Advance Directive? No Information not available 02/12/2018 Are You Blind Or Do You Have Difficulty Seeing? No Information not available 06/03/2020 What Is Your Level Of Caffeine Consumption? Occasional Tea Information not available 05/13/2024 How Much Tobacco Do You Chew? None Information not available 02/12/2018 In The 14 Days Before Symptom Onset, Have You Had Close Contact With A Laboratory-confir med COVID-19 While That Case Was Ill? No Information not available 07/03/2019 In The 14 Days Before Symptom Onset, Have You Had Close Contact With A Person Who Is Under Investigation For COVID-19 While That Person Was Ill? No Information not available 07/03/2019 Have You Been To An Area Known To Be High Risk For COVID-19? No Information not available 07/03/2019 Are You Deaf Or Do You Have Serious Difficulty Hearing? No Information not available 06/03/2020 What Type Of Diet Are You Following? DIABETIC Information not available 02/12/2018 Which Illicit Or Recreational Drugs Have You Used? None Information not available 02/12/2018 Education 10 Information no t available 02/12/2018 Are There Any Guns Present In Your Home? No Information not available 02/12/2018 Hard Of Hearing Or Deaf In One Or Both Ears? No Information not available 07/03/2019 Legally Blind In One Or Both Eyes? No Information no t available 07/03/2019 Do You Have A High School Diploma Or Higher Education? No Information not available 05/20/2020 Do You Sometimes Have To Miss Your Medical Appointments Due To Difficult Getting Transportation? No Information not available 05/20/2020 Do You Feel Unfairly Treated Due To Things Such As Race, Age, Gender, Disability Or Some Other Reason? No Information not available 05/20/2020 Do You Feel Physically And Emotionally Safe While Living At Home? Yes Information not available 05/20/2020 Do You Feel Physically And Emotionally Safe In Your Neighborhood Or Other Public Places? Yes Information not available 05/20/2020 Marital Status Single Informatio n not available 02/12/2018 What Was The Date Of Your Most Recent Tobacco Screening? 11/11/2024 Information not available 11/11/2024 Performs Monthly Self-breast Exam? No Information no t available 07/03/2019 What Is Your Relationship Status? Single Information not available 06/03/2020 Do You Use Your Seat Belt Or Car Seat Routinely? Yes Information not available 06/03/2020 Seat Belts Used Routinely Yes Information not available 02/12/2018 Are You Sexually Active? No Information not available 06/03/2020 Smoke Alarm In Home Yes Information not available 02/12/2018 Do You Have Smoke And Carbon Monoxide Detectors In Your Home? Yes Information not available 06/03/2020 At What Age Did You Start Smoking Tobacco? 14 Information not available 08/11/2019 Are You Passively Exposed To Smoke? No Information no t available 06/03/2020 How Much Tobacco Do You Smoke? 0.5 PPD Information not available 11/11/2024 General Stress Level Medium Information not available 02/12/2018 Do You Use Sunscreen Routinely? No Information not available 02/12/2018 Has Tobacco Cessation Counseling Been Provided? Yes [email or web address] Information not available 11/24/2021 On What Date Was Tobacco Cessation Counseling Provided? 11/11/2024 Information not available 11/11/2024 How Many Years Have You Smoked Tobacco? 40 Information not available 11/11/2024 Sex: Unknown Functional Status Question Answer Note LastModified by Organizat ion Details LastModified Time Do you use any illicit or recreational drugs? No Information not available 06/03/2020 Do you or have you ever used any other forms of tobacco or nicotine? No Information not available 06/03/2020 What is your level of alcohol consumption? None Information not available 02/12/2018 Do you or have you ever used smokeless tobacco? Never used smokeless tobacco Information not available 11/21/2018 Are you currently employed? Yes [email or web address] Information not available 07/31/2022 Are you able to care for yourself independently? Yes Information not available 06/03/2020 What is your occupation? [employer] [email or web address] Information not available 07/31/2022 Do you or have you ever used e-cigarettes or vape? Never used electronic cigarettes Information not available 11/21/2018 What is your exercise level? Occasional Information not available 02/12/2018 Mental Status Question Answer Note LastModified by Organization D etails LastModified Time Do you feel stressed (tense, restless, nervous, or anxious, or unable to sleep at night)? [id number] Information not available 02/11/2024 Family History Relationship Description Onset Age of this Age Resolved Age Notes LastModified by Organization Details LastModified Time Father Diabetes mellitus rreiter Not available 2017 10:11:43 Father Hypertensive disorder rreiter Not available 2017 10:11:57 Father Glaucoma rreiter Not available 02/12/2018 10:12:12 Mother Diabetes mellitus rreiter Not available 2017 10:11:48 Medical History Condition Response Coronary Artery Disease N Other N Atrial Fibrillation N High Blood Pressure Y Thyroid Problems N Kidney or Bladder Problems N Depression N COPD N Blood Clots N GI Problems N Skin Problems N Eating Disorder N Anemia N Heart Attack (VT) N Diabetes Y Anxiety Disorder N Muscle, Joint, or Bone Problems N Seizures/Epilepsy N Acid Reflux (GERD) N Cancer N Stroke N Allergies N Asthma Y ADHD N Substance Abuse N High Cholesterol N Hepatitis N Liver Disease N Schizophrenia N Headaches N Osteoporosis N Heart Failure N Gynecological History Statement/Question Response Current Control Method Menopause Date of Last Mammogram Date of LMP Obstetrics History GPAL:G 11 P 3 2 6 5 Type Value Multiple Births 0 Full Term 3 Induced 0 Spontaneous 6 Premature 2 Living 5 Ectopics 0 Total 11 Immunizations Vaccine Type Date Status Note Provider Nam e and Address Organization Details Recorded Time COVID-19, mRNA, LNP-S, PF, 30 mcg/0.3 mL dose 2 completed Not Available [facility] 05/09/2023 14:48:39 COVID-19, mRNA, LNP-S, PF, 30 mcg/0.3 mL dose, emerson-sucrose 2 completed Not Available [facility] 05/09/2023 14:48:39 Td (adult), 5 Lf tetanus toxoid, preservative free, adsorbed 5 completed Not Available [facility] 05/09/2023 14:48:39 Influenza, split virus, quadrivalent, preservative 8 completed Not Available [facility] 05/03/2019 02:45:25 pneumococcal polysaccharide PPV23 8 completed Not Available [facility] 05/03/2019 02:36:33 Influenza, split virus, quadrivalent, preservative 9 completed Not Available [facility] 05/03/2019 02:49:51 Influenza, split virus, quadrivalent, PF 0 completed VIOLA Buckner null, [place] - [facility] 04/06/2020 11:38:49 Influenza, split virus, quadrivalent, preservative 1 completed Lorraine Britton [place], [place] [facility] 02/15/2021 13:00:46 COVID-19, mRNA, LNP-S, PF, 30 mcg/0.3 mL dose, emerson-sucrose 2 completed Kimber Pritchard [place], [place] [facility] 11/24/2021 14:40:24 Influenza, split virus, trivalent, preservative 4 completed Adelaida Hoff APN, BARBY Attn: Accounting,[address], [place], [address], [facility] - [facility] 02/11/2024 10:19:20 Past Encounters Encounter ID Performer Location Encounter Start Date Encounter Closed Date Diagnosis/Indication Diagnosis SNOMED-CT Code Diagnosis ICD10 Code Diagnosis IMO Codes Diagnosis Note [id number] MD Magdaleno Delgado (Adult Med) [address] [place] [address] 02/12/2018 09:55:22 02/13/2018 10:29:49 Administration of influenza vaccine 13544129 Z23 cdc handout provided Hypertensive disorder 38 191355 I10 hctz increasing dose to 25 mg Diabetes mellitus 659662 09 E11.9 cont with januvia, recheck labs Asthma 628233390 J45.90 9 cont symbicort and prn albuterol, also adding montelukas t [facility] Adult heal th examination 813273707 Z00.01 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 Obesity 232277854 E66.9 advised low fat, low cholestero l, low carb diet, regular exercise and weight reduction. Depression screening positive 0794915666 95311 R45.89 phq 02/09; states she does not feel depressed. Dysuria 50125081 R30.0 Treating for UTI with bactrim, will send for culture as well Acute non- suppurative serous otitis media 054242822 H65.03 rafael TM bulging and erythemato us, treating with bactrim as to cover for UTI as well Candidiasis of mouth 797 08103 B37.0 significan t chunky white lesions to tongue, palate and cheeks, will order mouthwash and dwp to rinse after inhaler use to help prevent yeast over growth, also reduce sugar intake. [id number] MD Magdaleno Delgado (Adult Med) [address] [place] [address] 03/05/2018 11:07:58 03/15/2018 16:49:25 Diabetes mellitus 26127754 E11.9 cont with januvia, recheck labs Hypertensive disorder 38 043019 I10 high today, did not take medication ,Cont hctz 25 mg and lisinopril 10 mg Asthma 982666885 J45.90 9 cont symbicort and prn albuterol, montelukas t qhs Obesity 890939629 E66.9 advised low fat, low cholestero l, low carb diet, regular exercise and weight reduction. Administra tion of pneumococcal vaccine 97530849 Z23 [facility] handout provided Dysuria 44162302 R30.0 still has same symptoms, redip urine, glucose high, dwp will send for culture Noncomplia nce with treatment 5471889 Z91.19 DWP non compliance , increased risk of heart attack, stroke, deathPleas e call pt to make sure she has f/u for labs and RTO for f/u Posterior rhinorrhea 758 93823 R09.82 start daily allergy medication to help dry up drainage [id number] MD Magdaleno Delgado (Adult Med) [address] [place] [address] 11/21/2018 14:16:57 11/22/2018 09:37:29 History of deep vein thrombosis 460204819 Z86.718 inr 1.0, increasing to 6 mg qd, will recheck lab 1.5 weeks Obesity 349348723 E66.9 advised low fat, low cholestero l, low carb diet, regular exercise and weight reduction. Tobacco user 828676470 Z 72.0 Smoking cessation encouraged . Depression screening positive 7550021802 81692 R45.89 phq 04/11; states she does not feel depressed. Type 2 ebony betes mellitus 15735540 E11.9 pt still unable to get Januvia and was unable to tolerate metformin, will start steglatro and check labs, also needs referral to podiatry and needs monitoring kit Dysfunctio n of eustachian tube 21194304 H68.023 clear fluid behind TM, dwp to start inhaled nasal steroid to reduce inflammati on [id number] MD Magdaleno Delgado (Adult Med) [address] [place] [address] 12/04/2018 10:36:05 12/05/2018 09:06:32 Type 2 diabetes mellitus 74074539 E11.9 pt still unable to get Januvia and was unable to tolerate metformin, started steglatro and now has yeast infection with reports of BS higher; still needs to check labs, dwp to hold med for now and get labs today Candidiasis of vagina 72 510656 B37.3 pt reports itching, burning along with slight thick discharge, hx of yeast infections ;dwp to get otc pain relieving cream and use rx, diflucan may have one every 3-7 days; get labs as this does interact with coumadin [id number] MD Magdaleno Delgado (Adult Med) [address] [place] [address] 12/24/2018 10:55:02 12/25/2018 09:14:01 Type 2 diabetes mellitus 77164388 E11.9 pt still unable to get Januvia and was unable to tolerate metformin, started steglatro it gave her a yeast infection with reports of BS higher;Orn l start pt on basal insulin dose 10 u q hs Deep venou s thrombosis 579954198 I82.409 cont with coumadin and labs as planned7 mg Asthma 762533094 J45.30 cont symbicort and prn albuterol, montelukas t qhs Hypertensive disorder 38 687115 I10 stableCont hctz 25 mg and lisinopril 10 mg Tobacco user 591725710 Z 72.0 Smoking cessation encouraged .Would like to try Chantix-pt has tried patches, gum and Zyban in past and has failedasth ma worse when smoking, would benefit from quitting. [id number] MD Magdaleno Delgado (Adult Med) [address] [place] [address] 03/25/2019 11:33:45 04/14/2019 09:19:20 Hypertensive disorder 14294963 I10 stable- dwp needs to remain compliant with medication s; dwp risks of non compliance Cont hctz 25 mg and lisinopril 10 mg Type 2 ebony betes mellitus 07283725 E11.9 pt still unable to get Januvia and was unable to tolerate metformin, started steglatro it gave her a yeast infection with reports of BS higher;Con t basal insulin dose increase to 20 u q hsstart glipizide 5 g qd Deep venou s thrombosis 682136564 I82.409 cont with coumadin and labs as planned7 mglabs standing order q month Asthma 534291155 J45.30 cont symbicort and prn albuterol, montelukas t qhs Administra tion of influenza vaccine 57594136 Z23 cdc handout provided Candidiasis of vagina 72 731091 B37.3 pt reports itching, burning along with slight thick discharge, hx of yeast infections ;dwp to get otc pain relieving cream and use rx, diflucan may have one every 3-7 days; get labs as this does interact with coumadin [id number] MD Magdaleno Delgado (Adult Med) [address] [place] [address] 07/03/2019 09:46:40 07/04/2019 09:14:53 Hypertensive disorder 21701916 I10 stable- dwp needs to remain compliant with medication s; dwp risks of non compliance Cont hctz 25 mg and lisinopril 10 mg Type 2 ebony betes mellitus 81505974 E11.9 pt still unable to get Januvia and was unable to tolerate metformin, started steglatro it gave her a yeast infection with reports of BS higher;Con t basal insulin dose increase to 20 u q hs=glipizi de 5 g qd increase to 10 mgstart jardiance 25 mg Deep venou s thrombosis 340767964 I82.409 cont with coumadin and labs as planned7 mglabs standing order q month Asthma 749307582 J45.30 cont symbicort and prn albuterol, montelukas t qhs Pain of ri ght shoulder joint 4048854454 1557229 M25.511 ttp supraspina tus right sidedwp getting xrayice/he at, nsaid prn Acute non- suppurative serous otitis media 011027537 H65.03 bilateral TM's with erythema and purulent middle ear fluid, start amoxicilli n 500 mg [id number] MD Magdaleno Delgado (Adult Med) [address] [place] [address] 08/11/2019 09:32:22 08/12/2019 10:57:14 Deep venous thrombosis 926532412 I82.409 cont with coumadin and labs as planned7 mg Dysuria 43015806 R30.0 still has same symptoms, hx of uti, dwp will send for culture if not improved on abx [id number] MD Magdaleno Delgado (Adult Med) [address] [place] [address] 10/09/2019 08:26:13 10/10/2019 07:44:48 Dysuria 89423929 R30.0 still has same symptoms, hx of uti, dwp will send for culture if not improved on abx History of deep vein thrombosis 122082906 Z86.718 needs new lab, has not had checked since [id number] MD Magdaleno Delgado (Adult Med) [address] [place] [address] 11/12/2019 08:10:30 11/13/2019 22:39:42 Type 2 diabetes mellitus 47436959 E11.9 pt still unable to get Januvia and was unable to tolerate metformin, started steglatro it gave her a yeast infection with reports of BS higher; unable to tolerate jardiance; Cont:- basal insulin dose increase to 20 u bid-glipiz good 10 mg qam History of deep vein thrombosis 407733157 Z86.718 stable, check q month Dysuria 87378460 R30.0 still has same symptoms, hx of uti, dwp will send for culture if not improved on abx Hypertensive disorder 38 212846 I10 stable- dwp needs to remain compliant with medication s; dwp risks of non compliance Cont hctz 25 mg and lisinopril 10 mg Asthma 064678235 J45.30 cont symbicort and prn albuterol, montelukas t qhs [id number] MD Magdaleno Delgado (Adult Med) [address] [place] [address] 12/17/2019 13:32:46 12/23/2019 13:33:10 Dysuria 11661482 R30.0 still has same symptoms, hx of uti, dwp will send for culture after she completes abx, may need to go on shelter use macrobid for prevention [id number] MD Magdaleno Delgado (Adult Med) [address] [place] [address] 01/07/2020 08:17:10 01/09/2020 12:04:46 Dysuria 70866090 R30.0 still has same symptoms, hx of uti, dwp will send for culture after she completes abx, may need to go on shelter use macrobid for prevention Deep venou s thrombosis 754456025 I82.409 cont with coumadin and labs as planned7 mg [id number] MD Magdaleno Delgado (Adult Med) [address] [place] [address] 01/22/2020 08:19:02 01/26/2020 12:20:58 Otitis externa 7817877 H60.91 draining from right ear, will start drops, dwp cont po meds and all otc for other symptoms [id number] MD Magdaleno Delgado (Adult Med) [address] [facility] [address] 02/17/2020 09:03:20 02/18/2020 13:05:41 Dysuria 56205080 R30.0 still has same symptoms, hx of uti,may need to go on shelter use macrobid for prevention Type 2 ebony betes mellitus 30030761 E11.9 pt still unable to get Januvia and was unable to tolerate metformin, started steglatro it gave her a yeast infection with reports of BS higher; unable to tolerate jardiance; Cont:- basal insulin dose increase to 20 u bid- increasing to 25 u-glipizid e 10 mg qam Otalgia 76641245 H92.03 right ear still worse, dwp cont ear drops and will be adding bactrim po as well [id number] MD Magdaleno Delgado (Adult Med) [address] [facility] [address] 03/31/2020 08:32:21 04/02/2020 10:30:36 Type 2 diabetes mellitus 85047738 E11.9 pt still unable to get Januvia and was unable to tolerate metformin, started steglatro it gave her a yeast infection with reports of BS higher;kevan ble to tolerate jardiance; Cont:- basal insulin dose increase to 20 u bid- increasing to 25 u-glipizid e 10 mg qam Recurrent urinary tract infection 884153896 N39.0 dwp will refer to urology for recurrent issues Hypertensive disorder 38 558022 I10 stable- dwp needs to remain compliant with medication s; dwp risks of non compliance Cont hctz 25 mg and lisinopril 10 mg Obesity 410592416 E66.9 advised low fat, low cholestero l, low carb diet, regular exercise and weight reduction. Deep venou s thrombosis 958771207 I82.409 cont with coumadin and labs as planned6 mg Vitamin D deficiency 347 61693 E55.9 low, start weekly high dose replacemen t to raise and maintain level Tobacco user 685736939 Z 72.0 Smoking cessation encouraged .Would like to try Chantix-pt has tried patches, gum and Zyban in past and has failedasth ma worse when smoking, would benefit from quitting. [id number] MD Magdaleno Delgado (Adult Med) [address] [place] [address] 04/06/2020 10:48:23 04/07/2020 15:52:17 Active or passive immunization 501354108 Z23 [id number] MD Magdaleno Delgado (Adult Med) [address] [place] [address] 05/20/2020 11:41:04 05/25/2020 23:18:07 Dysuria 32056749 R30.0 still has same symptoms, hx of uti,may need to go on shelter use macrobid for prevention [id number] MD Magdaleno Delgado (Adult Med) [address] [place] [address] 06/03/2020 08:23:23 06/06/2020 01:20:59 Otitis externa 6196840 H60.91 painful with ear tug;will start drops, dwp cont po meds and all otc for other symptoms Acute otitis media 22221 03 H65.03 inner ear pain, hx of aom, will start amox [id number] MD Magdaleno Delgado (Adult Med) [address] [place] [address] 07/07/2020 14:33:27 07/08/2020 11:49:53 Bacteriuria 02672799 R82.71 urine dip wnl will send for culture, hx of frequent uti's Uncontroll ed type 2 diabetes mellitus 274821979 E11.65 a1c 9.6 increase basaglar to 40 units q hs, pt unable to take several po options, will refer to endocrine for better mgmt options Vitamin D deficiency 347 03187 E55.9 low, start weekly high dose replacemen t to raise and maintain level Deep venou s thrombosis 237184778 I82.409 cont with coumadin and labs as planned 6 mg Increased frequency of urination 710891351 R35.0 was unable to have see urology d/t transporta tion issues, local urology does not take her insurance, dwp will start med to help with bladder control, r/b/se [id number] MD Magdaleno Delgado (Adult Med) [address] [place] [address] 01/04/2021 15:49:45 01/05/2021 08:08:14 Vitamin D deficiency 74541281 E55.9 low, start weekly high dose replacemen t to raise and maintain level Uncontroll ed type 2 diabetes mellitus 961535586 E11.65 a1c 9.6 increase basaglar to 40 units q hs, pt unable to take several po options, will refer to endocrine for better mgmt options8.9 today, saw endocrine in [facility] [facility] on [facility], Hypertensive disorder 38 646203 I10 stable- dwp needs to remain compliant with medication s; dwp risks of non compliance Cont hctz 25 mg and lisinopril 10 mg Obesity 706717850 E66.9 advised low fat, low cholestero l, low carb diet, regular exercise and weight reduction. Tobacco user 663024925 Z 72.0 Smoking cessation encouraged .Would like to try Chantix-pt has tried patches, gum and Zyban in past and has failedasth ma worse when smoking, would benefit from quitting. Candidiasis of vagina 72 511076 B37.3 pt reports itching, burning along with slight thick discharge, hx of yeast infections ;dwp to get otc pain relieving cream and use rx, diflucan may have one every 3-7 days; get labs as this does interact with coumadin Endocrine/ metabolic screening 991919369 Z13.710 [id number] MD Magdaleno Delgado (Adult Med) [address] [place] [address] 02/15/2021 12:02:31 02/16/2021 05:55:57 Administration of influenza vaccine 06135108 Z23 [facility] handout provided Dysuria 17510763 R30.0 still has same symptoms, hx of uti,may need to go on shelter use macrobid for prevention will send urine for culture and start lower dose macrobid Family his tory of renal stone 007514940 Z84.1 will start med, go to ER if worsening, increase fluids Hypertensive disorder 38 500856 I10 elevated today, pt in pain,dwp needs to remain compliant with medication s; dwp risks of non compliance Cont hctz 25 mg and lisinopril 10 mg Obesity 838006098 E66.9 advised low fat, low cholestero l, low carb diet, regular exercise and weight reduction. 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 will send urine for culture and start cipro Candidiasis of vagina 72 874898 B37.3 pt reports itching, burning along with slight thick discharge, hx of yeast infections ;dwp to get otc pain relieving cream and use rx, diflucan may have one every 3-7 days; Atopic dermatitis 296532 01 L20.9 macular erythemato us rash to face, would like to get pt on eucrisa as steroids are not idea to face, try eczema lotion-ave kael [id number] MD Magdaleno Delgado (Adult Med) [address] [place] [address] 05/23/2021 15:30:37 05/24/2021 07:24:07 Uncontrolled type 2 diabetes mellitus 231845480 E11.65 saw endocrine early 2020, has not followed up sine Nov.encour aged pt to make apt with endocrine Hypertensive disorder 38 266633 I10 stable- dwp needs to remain compliant with medication s; dwp risks of non compliance Cont hctz 25 mg and lisinopril 10 mg Vitamin D deficiency 347 01041 E55.9 low, start weekly high dose replacemen t to raise and maintain level Obesity 674209762 E66.9 advised low fat, low cholestero l, low carb diet, regular exercise and weight reduction. Tobacco user 082010126 Z 72.0 Smoking cessation encouraged .Would like to try Chantix-pt has tried patches, gum and Zyban in past and has failedasth ma worse when smoking, would benefit from quitting. Posterior rhinorrhea 758 53277 R09.82 start daily allergy medication to help dry up drainage Asthma 159811883 J45.30 cont symbicort and prn albuterol, montelukas t qhs History of calculus of kidney 079999335 Z87.442 will start med, go to ER if worsening, increase fluids Candidiasis of vagina 72 220660 B37.3 pt reports itching, burning along with slight thick discharge, hx of yeast infections ;dwp to get otc pain relieving cream and use rx,recurre nt use of diflucan will rx po 200mg and then repeat 150 mg qwk for 4-8 weeks [id number] Reshma Ribeiro-Calderon er, MD Dolan (Adult Med) [address] [place] [address] 08/23/2021 11:34:41 08/24/2021 08:29:10 Uncontrolled type 2 diabetes mellitus 102223305 E11.65 saw endocrine- now on: lantus, trulicity and glipizidea 1c today 8.6, slight improvemen tcont with endocrine Hypertensive disorder 38 747015 I10 stable- dwp needs to remain compliant with medication s; dwp risks of non compliance Cont hctz 25 mg and lisinopril 10 mg Vitamin D deficiency 347 52690 E55.9 low, start weekly high dose replacemen t to raise and maintain level Obesity 937708596 E66.9 advised low fat, low cholestero l, low carb diet, regular exercise and weight reduction. Tobacco user 500594214 Z 72.0 Smoking cessation encouraged .Would like to try Chantix-pt has tried patches, gum and Zyban in past and has failedasth ma worse when smoking, would benefit from quitting. Posterior rhinorrhea 758 92463 R09.82 start daily allergy medication to help dry up drainage Asthma 931349474 J45.30 cont symbicort and prn albuterol, montelukas t qhs, increasing advair dose to 250 mcg History of calculus of kidney 957044779 Z87.442 cont flomax, f/u with urology as planned [id number] MD Magdaleno Delgado (Adult Med) [address] [place] [address] 08/30/2021 12:08:42 08/31/2021 06:06:36 Dysuria 07387099 R30.0 still has same symptoms, hx of uti,will send urine for culture and start cipro Acute urin angie tract infection 455597541 N39.0 urine dip pos leuk, will send for culture and notify pt if abx change needed, Obesity 923557273 E66.9 advised low fat, low cholestero l, low carb diet, regular exercise and weight reduction. [id number] MD Magdaleno Delgado (Adult Med) [address] [place] [address] 11/24/2021 12:01:52 11/25/2021 09:57:26 Dysuria 47340129 R30.0 still has same symptoms, hx of uti, will send for culture Uncontroll ed type 2 diabetes mellitus 895797540 E11.65 saw endocrine- now on: lantus, trulicity and glipizidel ast 8.6, today 8.1 slight improvemen tcont with endocrine Hypertensive disorder 38 861333 I10 stable- dwp needs to remain compliant with medication s; dwp risks of non compliance Cont hctz 25 mg and lisinopril 10 mg Vitamin D deficiency 347 51211 E55.9 low, start weekly high dose replacemen t to raise and maintain level Obesity 024766267 E66.9 advised low fat, low cholestero l, low carb diet, regular exercise and weight reduction. Tobacco user 205839358 Z 72.0 Smoking cessation encouraged .Would like to try Chantix-pt has tried patches, gum and Zyban in past and has failedasth ma worse when smoking, would benefit from quitting. Posterior rhinorrhea 758 52827 R09.82 cont daily allergy medication Asthma 838197037 J45.30 cont symbicort and prn albuterol, montelukas t qhs, increasing advair dose to 250 mcg History of calculus of kidney 419909983 Z87.442 cont flomax if symptoms start back, f/u with urology as planned Recurrent urinary tract infection 569626475 N39.0 dwp will refer to urology for recurrent issues Contact dermatitis 04602 004 L25.9 left forearm rash remains, [id number] MD Magdaleno Delgado (Adult Med) [address] [place] [address] 11/24/2021 12:39:18 12/06/2021 12:56:56 Administration of SARS-CoV-2 mRNA vaccine 5896423723 Z23 [id number] MD Magdaleno Delgado (Adult Med) [address] [place] [address] 02/24/2022 10:34:27 02/27/2022 09:15:51 Dysuria 87777359 R30.0 urine dip neg except bleeding which remains since recent biopsy, advised to call urologist regarding symptoms Hypertensive disorder 38 274286 I10 stable- dwp needs to remain compliant with medication s; dwp risks of non compliance Cont hctz 25 mg and lisinopril 10 mg Uncontroll ed type 2 diabetes mellitus 773129432 E11.65 saw endocrine- now on: lantus, trulicity and glipizidel ast 8.1, today 8.8cont with endocrine Vitamin D deficiency 347 54440 E55.9 low, start weekly high dose replacemen t to raise and maintain level Obesity 346518212 E66.9 advised low fat, low cholestero l, low carb diet, regular exercise and weight reduction. Tobacco user 890521275 Z 72.0 Smoking cessation encouraged .Would like to try Chantix-pt has tried patches, gum and Zyban in past and has failedasth ma worse when smoking, would benefit from quitting. Asthma 458294085 J45.30 cont symbicort and prn albuterol, montelukas t qhs, increasing advair dose to 250 mcg Contact dermatitis 39381 004 L25.9 left forearm rash remains, Vaginal discharge 972928 006 N89.8 advised to make apt with gyne Candidiasis of vagina 72 447632 B37.32 recurrent issues, dwp may be r/t DM uncontroll ed, but still advised gyne [id number] MD Magdaleno Delgado (Adult Med) [address] [place] [address] 07/31/2022 15:55:18 08/03/2022 15:16:30 Hypertensive disorder 42267383 I10 pt has been on decongesta nt for sinuses;dw p needs to remain compliant with medication s; dwp risks of non compliance Cont hctz 25 mg and lisinopril 10 mg Uncontroll ed type 2 diabetes mellitus 067169531 E11.65 saw endocrine- now on: lantus, trulicity and glipizidel ast 8.8, today 7.9cont with endocrine Vitamin D deficiency 347 90484 E55.9 low, start weekly high dose replacemen t to raise and maintain level Obesity 764605553 E66.9 advised low fat, low cholestero l, low carb diet, regular exercise and weight reduction. Tobacco user 175377798 Z 72.0 Smoking cessation encouraged .Would like to try Chantix-pt has tried patches, gum and Zyban in past and has failedasth ma worse when smoking, would benefit from quitting. Asthma 483201293 J45.30 cont symbicort and prn albuterol, montelukas t qhs, advair dose to 250 mcg Screening for malignant neoplasm of colon 940080146 Z12.11 Acute otit is media with effusion 886019140 H65.199 Rafael TM erythema and edema/bulg ing, start amox Dysfunctio n of eustachian tube 79477754 H68.023 clear fluid behind TM, dwp to start inhaled nasal steroid to reduce inflammati on [id number] MD Magdaleno Delgado (Adult Med) [address] [place] [address] 12/28/2022 09:06:12 01/01/2023 12:11:40 Hypertensive disorder 43034728 I10 dwp needs to remain compliant with medication s; dwp risks of non compliance Cont hctz 25 mg and lisinopril 10 mg Asthma 047871766 J45.30 cont symbicort and prn albuterol, montelukas t qhs, advair dose to 250 mcg Uncontroll ed type 2 diabetes mellitus 387821649 E11.65 saw endocrine- now on: trulicity and jardiancea 1c today 6.8 Vitamin D deficiency 347 45811 E55.9 low, start weekly high dose replacemen t to raise and maintain level Obesity 728695297 E66.9 advised low fat, low cholestero l, low carb diet, regular exercise and weight reduction. Tobacco user 184192110 Z 72.0 Smoking cessation encouraged .Would like to try Chantix-pt has tried patches, gum and Zyban in past and has failedasth ma worse when smoking, would benefit from quitting. Acute otit is media with effusion 383486330 H65.199 Rafael TM erythema and edema/bulg ing, start amox Dysfunctio n of eustachian tube 41475177 H68.023 clear fluid behind TM, dwp to start inhaled nasal steroid to reduce inflammati on Dysuria 86889721 R30.0 urine dip neg except bleeding which remains since recent biopsy, advised to call urologist regarding symptoms Screening for malignant neoplasm of colon 367192180 Z12.11 [id number] Reshma diaz, MD [facility] (Adult Med) [address] [place] [address] 07/31/2023 10:23:03 08/03/2023 11:21:01 Dysuria 29786797 R30.0 advised to call urologist regarding symptoms Hypertensive disorder 38 341452 I10 dwp needs to remain compliant with medication s; dwp risks of non compliance Cont hctz 25 mg and lisinopril 10 mg Asthma 087443660 J45.30 cont symbicort and prn albuterol, montelukas t qhs, advair dose to 250 mcg Uncontroll ed type 2 diabetes mellitus 366276385 E11.65 sees endocrine- now on: trulicity and jardiancea 1c today 7.9 Vitamin D deficiency 347 97715 E55.9 low, start weekly high dose replacemen t to raise and maintain level Obesity 799279986 E66.9 advised low fat, low cholestero l, low carb diet, regular exercise and weight reduction. Tobacco user 623391581 Z 72.0 Smoking cessation encouraged .Would like to try Chantix-pt has tried patches, gum and Zyban in past and has failedasth ma worse when smoking, would benefit from quitting. Dysfunctio n of eustachian tube 95262957 H68.023 clear fluid behind TM, dwp to start inhaled nasal steroid to reduce inflammati on History of deep vein thrombosis 410069244 Z86.718 has been on warfarin a long time, will change to plavix Positive s creening for depression on PHQ-9 (Patient Health Questionnaire 9) 1276826004 26408 Z13.31 depression screening positive-r epeat at followup [id number] Reshma diaz, MD [facility] (Adult Med) [address] [place] [address] 02/11/2024 09:40:55 02/13/2024 15:08:51 Hypertensive disorder 56123241 I10 dwp needs to remain compliant with medication s; dwp risks of non compliance Cont hctz 25 mg and lisinopril 10 mgjust took med minutes prior to apt, will recheck before exit Asthma 634812707 J45.30 cont symbicort and prn albuterol, montelukas t qhs, advair dose to 250 mcg Uncontroll ed type 2 diabetes mellitus 459938711 E11.65 sees endocrine- now on: trulicity and jardiancea 1c today 7.0 Vitamin D deficiency 347 00579 E55.9 low, start weekly high dose replacemen t to raise and maintain level Obesity 837241724 E66.9 advised low fat, low cholestero l, low carb diet, regular exercise and weight reduction. Tobacco user 044212009 Z 72.0 Smoking cessation encouraged .Would like to try Chantix-pt has tried patches, gum and Zyban in past and has failedasth ma worse when smoking, would benefit from quitting. Dysfunctio n of eustachian tube 29107216 H68.023 fluid behind TM, dwp to start inhaled nasal steroid to reduce inflammati on History of deep vein thrombosis 716140573 Z86.718 has been on warfarin a long time, will change to plavix Administra tion of influenza vaccine 48310585 Z23 [facility] handout provided Acute bila teral otitis media 682914080 H66.93 Rafael TM erythema and edema/bulg ingstart amox [id number] MD Magdaleno Delgado (Adult Med) [address] [place] [address] 03/12/2024 16:57:32 03/14/2024 15:54:26 Acute bilateral otitis media 254606441 H66.93 Rafael TM erythema and edema/bulg ingstart cefdinir and topical gtts [id number] MD Magdaleno Delgado (Adult Med) [address] [place] [address] 05/13/2024 08:54:54 05/14/2024 13:07:27 Influenza-like illness 67860862 B34.9 everyone at home is sick, likely viral illness;dw p to increase fluids, OTC cold med prn, rest, good handwashin g Hypertensive disorder 38 658053 I10 dwp needs to remain compliant with medication s; dwp risks of non compliance Cont hctz 25 mg and lisinopril 10 mg Type 2 ebony betes mellitus 89467516 E11.9 now seeing endocrine Obesity 484102503 E66.9 advised low fat, low cholestero l, low carb diet, regular exercise and weight reduction. Tobacco user 526287457 Z 72.0 Smoking cessation encouraged .Would like to try Chantix-pt has tried patches, gum and Zyban in past and has failedasth ma worse when smoking, would benefit from quitting. Vitamin D deficiency 347 62033 E55.9 low, start weekly high dose replacemen t to raise and maintain level Asthma 998369328 J45.30 cont symbicort and prn albuterol, montelukas t qhs, advair dose to 250 mcg Depression screening 171 476487 Z13.31 depression screening positive-r epeat at followup [id number] MD Magdaleno Delgado (Adult Med) [address] [place] [address] 11/11/2024 10:25:36 11/12/2024 15:23:16 Hypertensive disorder 46348386 I10 dwp needs to remain compliant with medication s; dwp risks of non compliance Cont hctz 25 mg and lisinopril 10 mgelevated today, took med ri ght before apt Type 2 ebony betes mellitus 58783069 E11.9 now seeing endocrine, cont with compliance , now on [email or web address] c:05/13/24- 6.35/11/07- 8.0 Tobacco user 112158038 Z 72.0 Smoking cessation encouraged .Would like to try Chantix-pt has tried patches, gum and Zyban in past and has failedasth ma worse when smoking, would benefit from quitting. Vitamin D deficiency 347 53460 E55.9 low, start weekly high dose replacemen t to raise and maintain level Asthma 472081259 J45.30 cont symbicort and prn albuterol, montelukas t qhs, advair dose to 250 mcg Obese class III 93065481 5 E66.813 E66.3 4696884711 advised low fat, low cholestero l, low carb diet, regular exercise and weight reduction. Acute bila teral otitis media 600483745 H66.93 [id number] Rafael TM erythema and edema/bulg ingstart cefdinir Atopic dermatitis 108554 01 L20.9 macular erythemato us rash to face, would like to get pt on eucrisa as steroids are not idea to face, try eczema lotion-ave kael Health Concerns Section Related Observation LastModified by Organization Detai ls LastModified Time None Recorded Concern Status LastModified by Organization Details LastModified Time None Recorded Advance Directives Directive N: Payers Insurance Date Sequence Insurance Name Policy Number Policy Dukes Covered Member ID Dukes Member ID Guarantor Name 11/07/2024 1 [facility] ON OR AFTER 10/14/20 (MEDICAID REPLACEMENT - HMO) Saba Trent [id number] Saba Trent 12/28/2022 1 [facility] PRIOR TO 10/14/2020 (MEDICAID REPLACEMENT - HMO) Saba Trent [id number] Saba Trent 03/29/2020 SLIDING FEE SCHEDULE - DISCOUNT Saba Selbyhle 11/06/2019 SLIDING FEE SCHEDULE - DISCOUNT Saba Badilloe 08/11/2019 2 *SELF PAY* Jacqueline Cartagena Miley 07/07/2020 SLIDING FEE SCHEDULE - DISCOUNT Saba Cartagena Abyfred Notes Date Note Type Note Provider Name and Address Organization Details Recorded Time 07/31/2023 text/html Diabetes F/URepo rted by PatientHPIFor context, patient reportsmissing doses of medication. For labs, (unknown).now seeing endocrineIzzy BRAND LEAD Hypertension F/UReported by [facility], patient reportsnot exercising regularlyandhigh salt intake. For associated symptoms, patient reportsno dizziness,no lightheadedness,no chest pain,no shortness of breath,no palpitations,no edema, andno calf pain with exertion. For medications, patient reportstaking medications as directedandno side effects from medication.did not take med this am taking allergy meds, nasal spray, cough med etc; - asthma, uses inhaler qd for rescue, using more often Adelaida Hoff, [employer]OX [employer]KER, DIETARY SERVICE AIDE-C Attn: Accounting[address] [place], [address], [facility] 08/01/2023 09:07:16 02/11/2024 text/html Diabetes F/URepo rted by PatientIFor context, patient reportsmissing doses of medication. For labs, (unknown).now seeing endocrineIzzy BRAND LEAD Hypertension F/UReported by [facility], patient reportsnot exercising regularlyandhigh salt intake. For associated symptoms, patient reportsno dizziness,no lightheadedness,no chest pain,no shortness of breath,no palpitations,no edema, andno calf pain with exertion. For medications, patient reportstaking medications as directedandno side effects from medication.did not take med this am taking allergy meds, nasal spray, cough med etc; - asthma, uses inhaler qd for rescue, using more often Adelaida Hoff, SAMPLE BOX MAKER, DIETARY SERVICE AIDE-C Attn: Accounting,[address] [place], [address], [facility] 02/11/2024 10:28:16 03/12/2024 text/html ROS as noted in the HPI Pt is still having bilateral ear pain. After finishing the amoxicillin, she felt better. Symptoms came back. Adelaida Hoff APN, DIETARY SERVICE AIDE-C Attn: Accounting,[address] [facility], [place], [address], [facility] 03/12/2024 17:28:32 05/13/2024 text/html Diabetes F/URepo rted by PatientHPIFor context, patient reportsmissing doses of medication. For labs, (unknown).now seeing endocrineIzzy BRAND LEAD [facility]ension [facility], patient reportsnot exercising regularlyandhigh salt intake. For associated symptoms, patient reportsno dizziness,no lightheadedness,no chest pain,no shortness of breath,no palpitations,no edema, andno calf pain with exertion. For medications, patient reportstaking medications as directedandno side effects from medication. pt c/o body chills, fever, headache, and diarrhea. otc tylenol. living with people who are currently sick. taking allergy meds, nasal spray, cough med etc; - asthma, uses inhaler qd for rescue, using more often Adelaida Hoff APN, DIETARY SERVICE AIDE-C Attn: Accounting,[address] [facility], [place], [address], [facility] 05/13/2024 15:37:23 11/11/2024 text/html Diabetes F/URepo rted by PatientIFor context, patient reportsmissing doses of medication. For labs, (unknown).now seeing Izzy salgado BRAND LEAD [facility], patient reportsnot exercising regularlyandhigh salt intake. For associated symptoms, patient reportsno dizziness,no lightheadedness,no chest pain,no shortness of breath,no palpitations,no edema, andno calf pain with exertion. For medications, patient reportstaking medications as directedandno side effects from medication. taking allergy meds, nasal spray, cough med etc; - asthma, uses inhaler qd for rescue, using more often Adelaida Hoff APN, DIETARY SERVICE AIDE-C Attn: Accounting,[address] [place], [address], [place] [facility] 11/11/2024 11:01:59 OBGyn Episode No OBEpisode recorded.
--- OUTSIDE RECORDS SUMMARY | 2025-03-08 09:50 | XMS_ITS | Clinical Summary ---
Author Organization [facility] Address [address] [place] [address] Care Team Providers Care Field Marketing Team Leader Name Role Phone Adelaida Apple NP Primary Care Provider [phone] Allergies Active Allergy Reactions Criticality Noted Date Comments Metformin Diarrhea,Vomiting High 04/27/2020 Linagliptin Rash High 04/27/2020 [facility]ations [facility] Lancets 33 gauge [facility] 1 Active lisinopriL (PRINIVIL,ZESTR [place]) 10 mg [...] mouth once a week On 1 Active check24uch Ultra Blue Test Strip strip USE TO TEST BLOOD GLUCOSE TWICE DAILY 1 Active blood-glucose meter [facility] OneTouch Ultra2 Meter Active ipratropium-alb uteroL (DUO-NEB) [...] 10/04/2022 Assessment & Plan (02/21/2024 9:53 AM MICROSTRATEGY DEVELOPER): This is a chronic condition which continues [...] sessions. Assessment & Plan (06/12/2023 2:33 PM MICROSTRATEGY DEVELOPER): This is a chronic condition which continues [...] (01/30/2022): Added automatically from request for surgery [id number] Smoker 12/07/2021 Assessment & Plan (12/07/2021 2:18 [...] urology. Will refer to Dr. Call at [facility]. Hyperlipidemia associated with type 2 diabetes yamile espinoza 11/08/2020 Assessment & Plan (02/21/2024 9:53 AM MICROSTRATEGY DEVELOPER): This is a chronic condition which is at goal. Goal is less than 140/90 Continue lisinopril, hydrochlorothiazide Encouraged to monitor weight and B/P at home. Assessment & Plan (06/12/2023 2:41 PM MICROSTRATEGY DEVELOPER): is a chronic condition which is at [...] loss. Assessment & Plan (03/21/2022 6:49 AM MICROSTRATEGY DEVELOPER): This is a chronic condition which at goal. Goal is less than 70. Personally reviewed lipid panel. Continue atorvastatin. Encouraged to eat healthy, include fresh fruits and vegetables daily and avoid eating fried foods more than once per week. Encouraged to take medications as prescribed. Encouraged weight loss. Assessment & Plan (06/22/2021 2:34 PM MICROSTRATEGY DEVELOPER): This is a chronic condition which at [...] diabetes. Assessment & Plan (02/21/2024 9:53 AM MICROSTRATEGY DEVELOPER): This is a chronic condition which is [...] lisinopril/hydrochlorothiazide Assessment & Plan (06/12/2023 2:40 PM MICROSTRATEGY DEVELOPER): This is a chronic condition which is [...] atorvastatin Assessment & Plan (03/21/2022 6:44 AM MICROSTRATEGY DEVELOPER): This is a chronic condition which is [...] urologist and is willing to go to [facility]. Encouraged annual eye exam. dilated eye exam [...] No history of macrovascular disease - CVA, SD. Agreed to attend Diabetes class, has not [...] No history of macrovascular disease - CVA, SD. Agreed to attend Diabetes class, has not attended Assessment & Plan (06/22/2021 2:34 PM MICROSTRATEGY DEVELOPER): This is a chronic condition which is [...] No history of macrovascular disease - CVA, SD. Agreed to attend Diabetes class, has not [...] No history of macrovascular disease - CVA, SD. Agreed to attend Diabetes class, has not [...] No history of macrovascular disease - CVA, SD. Agreed to attend Diabetes class, has not [...] No history of macrovascular disease - CVA, SD. Agreed to attend Diabetes class Encouraged to stop smoking Assessment & Plan (04/27/2020 2:23 PM MICROSTRATEGY DEVELOPER): This is a chronic condition which is [...] No history of macrovascular disease - CVA, SD. Declined visit to dietitian. Encouraged to stop smoking Hypertension, essential 08/31/2011 Overview (04/27/2020): Stable. Assessment & Plan (06/12/2023 2:33 PM MICROSTRATEGY DEVELOPER): This is a chronic condition which is at goal of less than 140/90 Personally reviewed labs. Continue hctz Encouraged to monitor weight and B/P at home Encouraged to take medications as prescribed. Assessment & Plan (03/21/2022 6:46 AM MICROSTRATEGY DEVELOPER): This is a chronic condition which is [...] prescribed. Assessment & Plan (04/27/2020 2:22 PM MICROSTRATEGY DEVELOPER): This is a chronic condition and is [...] 06/12/2023 Assessment & Plan (06/12/2023 2:37 PM MICROSTRATEGY DEVELOPER): Enlarged skin more to the left upper cheek impedes peripheral vision She reports it has cracked in the middle It causes her pain when she touches it Morbid (severe) obesity due to excess calories 08/03/2021 10/04/2022 Assessment & Plan (03/21/2022 6:45 AM MICROSTRATEGY DEVELOPER): This a chronic condition which is worsening [...] Type Department Care Team Description 12/24/2024 Telephone [facility] at [address] [id number] Izzy Varags NP 12/22/2024 Telephone [facility]ocrine Care at [address] [place] [address] Izzy Vargas NP from Last 3 Months Immunizations Immunization Administration Dates Next Due Influenza, Quadrivalent, Spl it, Intramuscular 02/15/2021,03/25/2019,02/12/2018 Influenza, Quadrivalent, Spl it, Preservative Free, Intramuscular 04/06/2020 Pneumococcal Polysaccharide PPV23 03/05/2018 TD Preservative Free 10/02/2014 Surgical History Surgery Date Site/Laterality Comments CHOLECYSTECTOMY 04/16/1996 TUBAL LIGATION Medical History Medical History Date Comments Diabetes mellitus Type 2 diabetes mellitus Hypertension Body mass index (BMI) 50.0-59.9, adult (HCC) COPD (chronic obstructive pulmonary disease) Frequent UTI [...] 07/02/2024 Historical Provider LAB BLOOD ORDERABLES [facility] esquivel Result EXTERNAL LAB * [facility] - OU - Both Eyes (02/22/2024) Anatomical Region Laterality Modality Head Fundus Photograp hy 02/22/2024 Izzy Vargas NP OPHTH PHOTOGRAPHY Final Result from Last 3 Months or Most Recently Relevant to Health Maintenance Insurance [facility] [address] [facility] Care Teams Field Marketing Team Leader Relationship Specialty Start Date End Date Ambika, Adelaida Rea NP [address] [place] [address] PCP - General 09/22/19
[2025-03-08 10:04] VITALS: BP 140/74; PULSE 73; RESP 18; TEMP 37.2; O2SAT 95
--- NOTE | 2025-03-08 10:30 | ED_ITS ---
HPI - Abdominal Pain General Chief Complaint: Nausea/Vomiting/Diarrhea Stated Complaint: Vomiting/Diarrhea/Stomach Pain Time Seen by Provider: 03/08/25 10:20 Source: patient, RN notes reviewed and old records reviewed Mode of arrival: ambulatory Limitations: no limitations History of Present Illness HPI narrative: 54 year old female presents to [facility] care with complaints of abdominal pain above umbilicus across abdomen which started yesterday morning with complaints of nausea and vomiting and diarrhea. Patient reports that she had last emesis about 1 hour prior to arrival and is continuing to have diarrhea stools. Patient reports that she has taken Pedialyte, Meclizine and also Imodium for her symptoms. Patient reports that vomiting is watery with no blood or bilious emesis, states watery diarrhea without blood noted. Patient is on Plavix for history of blood clots to her leg. Patient reports that she hasn't been able to keep anything dowm. MD elicited complaint: abdominal pain Pertinent past history: other (IBS cholecystectomy) Onset (ago): day(s) (yesterday morning) Pain Consistency: intermittent Location: periumbilical Severity: moderate Pain scale (0-10): 6 Quality: cramping Radiation: none Associated symptoms: nausea, vomiting and diarrhea Treatments prior to arrival: other (Pedialyte meclizine and Immodium) Related Data Home Medications ?Medication ?Instructions ?Recorded ?Confirmed ?Last Taken ?Type albuterol sulfate 90 mcg/actuation 2 puff inhalation Q 4H PRN sob 01/19/20 12/17/20 Unknown History aerosol inhaler cetirizine 10 mg tablet 10 mg PO DAILY 01/19/2012/05 Unknown History ergocalciferol (vitamin D2) 1,250 1,250 mcg PO WEEKLY 01/19/20 10/21/21 Unknown History mcg (50,000 unit) capsule ipratropium 0.5 mg-albuterol 3 mg 3 ml inhalation QID PRN sob 01/19/20 10/21/21 Unknown History (2.5 mg base)/3 mL nebulization soln lisinopril 10 mg tablet 10 mg PO DAILY 01/19/2012/05 Unknown History atorvastatin 20 mg tablet 20 mg PO DAILY 12/17/2012/05 Unknown History clopidogrel 75 mg tablet mg 12/07/24 Unknown History empagliflozin 25 mg tablet mg 12/07/24 Unknown Histor y (Jardiance) gabapentin 300 mg capsule mg 12/07/24 Unknown History tirzepatide 5 mg/0.5 mL mg subcut 12/07/24 Unknown History subcutaneous pen injector (Divya) albuterol sulfate 2.5 mg/3 mL mg 03/08/25 Unknown His tory (0.083 %) solution for nebulization oxybutynin chloride 5 mg tablet mg 03/08/25 Unknown H istory Allergies Allergy/AdvReac Type Severity Reaction Status Date / Time No Known Allergies Allergy Verified 03/08/25 10:03 Review of Systems Review of Systems: CONSTITUTIONAL: reports low grade fever,no chills, or sweats. ENT: Denies rhinorrhea, congestion, sore throat, or otalgia. CARDIOVASCULAR: Denies chest pain, palpitations, or edema. RESPIRATORY: Denies cough or dyspnea. GASTROINTESTINAL: Reports abdominal above umbilicus across abdomen with no radiation,of pain,+ nausea, +vomiting,+ diarrhea. GENITOURINARY: Denies dysuria or hematuria. SKIN: Denies rash or itching. MUSCULOSKELETAL: Denies back pain, joint pain, or myalgia. NEUROLOGIC: Denies headache, numbness, or weakness. All systems reviewed & are unremarkable except as noted in HPI and below PMFSH Past Medical History Medical History (Updated 03/09/25 @ 16:38 by Debbi Warren APRN) IBS (irritable bowel syndrome) COPD (chronic obstructive pulmonary disease) Asthma DVT (deep venous thrombosis) Hyperlipidemia Hypertension History of sinus problem Diabetes Surgical History Surgical History (Updated 01/19/20 @ 16:11 by Debbi Warren APRN) Previous section Hx of cholecystectomy Social History Social History (Updated 03/09/25 @ 16:29 by Debbi Warren APRN) Smoking packs per day: 0.5 Smoking cigarettes per day: 10.0 Years smoked: 26 Smoking pack-years: 13.00 Smoking status: Current every day smoker Tobacco type: cigarettes Alcohol use details: no alcohol Substance use type: does not use Living arrangements: with family Gender identity (if verbalized by the patient): Female Comments At time of signature, agree with nursing past medical, surgical, social and family history. There is no relevant family history pertinent to the presenting complaint Exam Narrative: GENERAL: ill-appearing, well-nourished,obese and in some acute distress. HEAD: Normocephalic, atraumatic. EYES: PERRLA, conjunctivae clear, and EOMI. ENT: Nares clear. Mucous membranes moist. Oropharynx without edema, erythema, or lesions. Tonsils not enlarged and without exudate. NECK: Supple. No lymphadenopathy CHEST: Speaks in full sentences. No respiratory distress.SAO2 95% on room air HEART: Regular rate and rhythm. ABDOMEN: Soft, rounded, distended.+ guarding, rebound tenderness, no rigidity,. No pulsatilla masses. Bowel sounds present in all four quadrants. No organomegaly. Negative Morfin?s sign.+ periumbilical tenderness. No Supra public tenderness or distension.No McBurney point tenderness. Good femoral pulses bilaterally. No hernia noted. No scars or surface trauma. SKIN: Warm, dry, no rash. NEURO:? Alert and oriented x3. PSYCH: Normal mood and affect Course Course Emergency Course: Patient is aware of diagnosis, understands and agrees to treatment plan.? Anticipatory guidance given.? Patient agrees to follow-up as directed and is aware of reasons to seek care at the emergency department. Portions of this record may have been created with voice recognition software Level of Care: Express Care Visit Vital Signs Vital signs: Vital Signs Temperature 37.2 C 03/08/25 10:04 Pulse Rate 73 03/08/25 10:04 Respiratory Rate 18 03/08/25 10:04 Blood Pressure 140/74 03/08/25 10:04 Pulse Oximetry 95 03/08/25 10:04 Oxygen Delivery Room Air 03/08/25 10:04 Temperature 37.2 C 03/08/25 10:04 Pulse Rate 73 03/08/25 10:04 Respiratory Rate 18 03/08/25 10:04 Blood Pressure 140/74 03/08/25 10:04 Pulse Oximetry 95 03/08/25 10:04 Oxygen Delivery Room Air 03/08/25 10:04 Reviewed Transfer Transfered to: [facility]) Transportation: Other (per private car with family) Transfer rationale: abdominal pain with nausea vomiting and diarrhea, low grade temp Accepting physician: Chris Transfer comments: To [facility] per private car with family member for further evaluation MDM - Abdominal Pain MDM Narrative Medical decision making narrative: No evidence of pancreatitis, AAA, cholecystitis, choledocholithiasis, cholangitis, mesenteric ischemia, small bowel obstruction, diverticulitis, colitis, appendicitis, or pelvic etiology such as ovarian/testicular torsion, TOA, or ectopic .? Patient has no history of peptic ulcer, H. pylori, chronic aspirin NSAID or corticosteroid use, chronic alcohol use, no history of inflammatory bowel disease, no history of active abdominal infection or malignancy.? Patient has no history of hernia or intra-abdominal surgeries, patient denies absence of flatus, constipation, melena, hematemesis. Patient denies post-prandial pain. No pain-out of proportion. 1053 Call placed to [facility] ED and report of patient condition, testing results, VS,PMH reviewed with nurse Brito with Dr Perez accepting patient for transfer., Differential Diagnosis Differential diagnosis: Likely abdominal pain, acute appendicitis, diverticulitis, gastroenteritis, pancreatitis, small bowel obstruction and other (bowel obstruction, viral syndrome, dehydration) Medical Records Attestation: I reviewed the patient's medical records. Lab Data Attestation: I reviewed the patient's lab results. Lab results narrative: Covid negative, Influenza A& B negative Labs: Lab Results 03/08/25 Range/Units 10:38 POC Influenza A Ag Negative (Negative) POC Influenza B Ag Negative (Negative) POC SARS CoV-2 Ag Negative (Negative) reviewed Critical Care Time Critical Care Time Critical Care Time: No Discharge Plan Discharge Clinical Impression: Abdominal pain, Abdominal pain, vomiting, and diarrhea Patient Disposition: Acute Care Hospital Condition: Stable Patient Language: Macedonian Prescriptions: No Action albuterol sulfate 2.5 mg /3 mL (0.083 %) solution for nebulization oxybutynin chloride 5 mg tablet ipratropium-albuterol 0.5 mg-3 mg(2.5 mg base)/3 mL solution for nebulization 3 ml INHALATION QID PRN (Reason: sob) cetirizine 10 mg tablet 10 mg PO DAILY lisinopril 10 mg tablet 10 mg PO DAILY ergocalciferol (vitamin D2) 1,250 mcg (50,000 unit) capsule 1,250 mcg PO WEEKLY albuterol sulfate 90 mcg/actuation HFA aerosol inhaler 2 puff INHALATION Q4H PRN (Reason: sob) atorvastatin 20 mg tablet 20 mg PO DAILY clopidogrel 75 mg tablet gabapentin 300 mg capsule Jardiance 25 mg tablet Mounjaro 5 mg/0.5 mL pen injector SUBCUT Follow-up/Referrals: Apple,Adelaida Cast APN [Primary Care Provider, Unknown] Time of Disposition: 10:55 Quality Em Coma Scale Eyes: Open Verbal: Oriented and Alert Motor: Follows Commands [place] Coma Total Score: 15
[2025-03-09 11:50] LABS: EDCOVIDSCREEN Negative (Negative); EDINFLUASCREEN Negative (Negative); EDINFLUBSCREEN Negative (Negative)
== END 2025-03-08 11:00 | disposition short-term general hospital (02) ==
PROVIDERS: Emergency Provider Registered Nurse; PCP Nurse Practitioner Family
DX: R10.33 Periumbilical pain (principal); R11.10 Vomiting, unspecified; R19.7 Diarrhea, unspecified; Z20.822 Contact with and (suspected) exposure to COVID-19; F17.210 Nicotine dependence, cigarettes, uncomplicated; E11.9 Type 2 diabetes mellitus without complications; Z79.84 Long term (current) use of oral hypoglycemic drugs; Z79.85 Long-term (current) use of injectable non-insulin antidiabetic drugs; I10 Essential (primary) hypertension; E78.5 Hyperlipidemia, unspecified; J44.9 Chronic obstructive pulmonary disease, unspecified; Z86.718 Personal history of other venous thrombosis and embolism; Z79.01 Long term (current) use of anticoagulants
CPT/HCPCS: 87426; 87804; 99212; G0463